=== PATIENT | male | born 1950 | race Caucasian/White ===

== ENCOUNTER 2022-01-28 16:27 | Observation (INO) ==
--- NOTE | 2022-01-28 16:39 | Emergency Department Note ---
Impression & Plan RML pneumonia, Confusion, S/P right hip fracture ED Provider Note Provider: Jer Richter MD DATE OF SERVICE: 01/28/2022 CHIEF COMPLAINT: Confusion, weakness HISTORY OF PRESENT ILLNESS: Patient is a 71-year-old gentleman presenting via ambulance reportedly from family members home today reported with weakness and fever and worsening confusion. Evidently had a right hip replacement at [facility] 2 weeks ago. Had a stroke sometimes in the past although was unclear exactly when. Patient reportedly was hospitalized at [facility] for a while. Upon arrival here he is unable to clearly tell me clearly why he is here. He does not know the year or the month but knows he is at the hospital. Denies any pain at this time. No trauma is reported. Patient is afebrile upon arrival and on room air. Patient denies significant chest pain, abdominal pain, or difficulty breathing. Patient presents with multiple medications including Xarelto is unclear why he is on this medicine. REVIEW OF SYSTEMS: A total of 10 review of systems was obtained and negative except as stated above in the HPI although the patient is a poor historian PAST MEDICAL HISTORY: As noted above MEDICATIONS: Reviewed medications presenting with the patient SOCIAL HISTORY: States his is PHYSICAL EXAM: GENERAL: alert on the stretcher in no distress. Not oriented to year or month but does know he is in the hospital. Does not remember why he was in [facility] recently. Head: normocephalic and atraumatic EYES: No injection, discharge or icterus. PERRL NECK: Trachea midline. Supple. ENT: Mucous membranes pink and moist. Pharynx LUNGS: Airway patent. No retractions. Breath sounds clear HEART: Regular bradycardic rate and rhythm. No chest wall tenderness ABDOMEN: Soft and non-tender, without guarding or rebound. Patient with healing right lateral posterior hip incision without significant erythema with dallas in place. SKIN: Acyanotic, warm, dry, without rashes EXTREMITIES: Without swelling, tenderness or deformity NEUROLOGICAL: Patient with some slight speech slur. Answers questions. Limited mobility of the right upper extremity and the right lower extremity with some contracture and wasting noted in these limbs. Neck strength and sensation of the left arm and leg. EK bpm sinus bradycardia with first-degree AV block. No acute ST segment elevation or depression. Left axis. QTC 444 CONTINUOUS CARDIAC MONITORING: was ordered and showed a heart rate of 40s-60s bpm in first-degree AV block bradycardia to sinus rhythm Patient's laboratory studies and imaging reviewed. Differential includes Infection, dehydration, metabolic abnormality, hypo/hyperglycemia, electrolyte disturbance, anemia, hypoxia, cardiac sources, intracerebral event, toxicologic, neurologic, as well as other pathologies. IMPRESSION/MEDICAL DECISION MAKING: Patient presents with EMS report of fever confusion and weakness after recent hip replacement. Presents with medications including Xarelto. Not hypoxic here or febrile. No significant leukocytosis although x-ray is concerning for development of a right middle lobe pneumonia. CT of the head completed of the patient is a prior stroke. No acute intracranial bleed noted. No emergency contact listed in the chart to get additional collateral history. Minimal anemia at 10.9. Given the recent hospitalization reported fever and the questionable findings of pneumonia treated broadly with a dose of Zosyn at this time and cultures were obtained. VBG without significant abnormality. Given some potassium for some mild hypokalemia. Procalcitonin is low. TSH within normal limits. No elevated ammonia. Patient again pleasant but mildly confused. Limited records here and in [facility]. Question if the patient does have some underlying dementia. Again unable to find family at this time. Given EMS report of some confusion will bring into the hospital although would potentially be an outpatient treatment candidate if family could be located and his exact baseline established. DIAGNOSIS: Right middle lobe pneumonia, confusion DISPOSITION: Hospitalist will evaluate Patient was agreeable with this plan. Past Med/Surg History Medical History (Updated 01/28/22 @ 20:05 by Jer Richter M.D.) Arthritis Asthma Emphysema lung H/O bronchitis History of urinary frequency Skin cancer Stroke Social History (System 02/12/19 @ 15:16 by Cynthia Bowers) Smoking Status: Former smoker Preferred Language: Malay Feels Safe at Home: Yes Allergies Allergies Allergy/AdvReac Type Severity Reaction Status Date / Time No Known Allergies Allergy Verified 02/22/20 14:04 Home Meds Previous Rx's Medication Instructions Recorded tamsulosin 0.4 mg capsule (Flomax) 0.4 mg PO QPM #30 cap 07/07/20 Results & Data (ED) Vital Signs Vital Signs - 24 hr 01/28/22 16:18 01/28/22 16:39 01/28/22 19:00 Temperature 36.8 C 37.1 C Temperature Source Oral Oral Pulse Rate 55 L Pulse Rate [Apical] 56 L 60 Pulse Rhythm [Apical] Regular Pulse Strength [Apical] Normal Respiratory Rate 16 18 Respiratory Effort / Characteristics Non-Labored Spontaneous Respiratory Depth Normal Blood Pressure 138/63 Blood Pressure [Left Arm] 138/63 129/81 Blood Pressure Mean 88 Blood Pressure Mean [Left Arm] 88 97 Blood Pressure Position [Left Arm] Lying Pulse Oximetry 95 94 97 Oxygen Delivery Method Room Air Room Air Sepsis Recent Fever Within 48 Hours No Sepsis New/Unexplained Change in Mental Status No Sepsis Action Taken by Nursing No Action Required Laboratory Data Result diagrams: 01/28/22 17:19 01/28/22 17:19 Lab Results 01/28/22 01/28/22 01/28/22 Range/Units 17:18 17:18 17:18 WBC (4.8-10.8) K/uL RBC (4.7-6.1) M/uL Hgb (14.0-18.0) g/dL Hct (42-52) % MCV (80-100) fL MCH (25-34) pg MCHC (32-36) g/dL RDW Std Deviation (36.4-46.3) fL RDW Coeff of Brittney (11.5-14.5) % Plt Count (130-400) K/uL MPV (7.4-10.4) fL Immature Gran % (Auto) % Neut % (Auto) % Lymph % (Auto) % Eaton % (Auto) % Eos % (Auto) % Baso % (Auto) % Neut # (Auto) (1.4-6.5) K/uL Lymph # (Auto) (1.2-3.4) K/uL Eaton # (Auto) (0.11-0.59) K/uL Eos # (Auto) (0-0.5) K/uL Baso # (Auto) (0-0.2) K/uL Immature Gran # (Auto) (0.00-0.02) K/uL PT 13.0 H (9.0-12.0) Seconds INR 1.2 H (0.9-1.1) VBG pH (7.36-7.41) VBG pCO2 (38-50) mmHg VBG pO2 mmHg VBG HCO3 mmol/L VBG O2 Saturation % VBG Base Excess mEq/L Barometric Pressure mm/Hg Sodium (136-145) mmol/L Potassium (3.5-5.1) mmol/L Chloride (98-107) mmol/L Carbon Dioxide (21-32) mmol/L Anion Gap (3-11) BUN (6-23) mg/dl Creatinine (0.6-1.4) mg/dl Est Cr Clr Drug Dosing ml/min Est GFR ( Amer) ml/min Est GFR (Non-Af Amer) ml/min BUN/Creatinine Ratio (10-20) Glucose (70-99(Fasting)) mg/dl Lactate (0.4-2.0) mmol/L Calcium (8.5-10.1) mg/dl Magnesium (1.7-2.4) mg/dl Total Bilirubin (0.2-1.0) mg/dl AST (13-39) U/L ALT (7-52) U/L Alkaline Phosphatase (34-104) U/L Ammonia (18-72) umol/L Total Creatine Kinase (30-223) U/L Troponin I High Sens 4.8 (0-20) pg/ml Total Protein (6.0-8.3) gm/dl Albumin (3.4-5.0) gm/dl Globulin (2.5-4.0) gm/dl Albumin/Globulin Ratio (0.9-2) Procalcitonin (0-0.5) ng/ml TSH 4.095 (0.300-4.500) uIu/ml SARS-CoV-2, RNA, NAAT (NEGATIVE) 01/28/22 01/28/22 01/28/22 Range/Units 17:18 17:19 17:19 WBC 8.36 (4.8-10.8) K/uL RBC 3.50 L (4.7-6.1) M/uL Hgb 10.9 L (14.0-18.0) g/dL Hct 32.1 L (42-52) % MCV 91.7 (80-100) fL MCH 31.1 (25-34) pg MCHC 34.0 (32-36) g/dL RDW Std Deviation 52.6 H (36.4-46.3) fL RDW Coeff of Brittney 16.2 H (11.5-14.5) % Plt Count 301 (130-400) K/uL MPV 10.2 (7.4-10.4) fL Immature Gran % (Auto) 0.2 % Neut % (Auto) 74.0 % Lymph % (Auto) 18.1 % Eaton % (Auto) 6.5 % Eos % (Auto) 1.1 % Baso % (Auto) 0.1 % Neut # (Auto) 6.19 (1.4-6.5) K/uL Lymph # (Auto) 1.51 (1.2-3.4) K/uL Eaton # (Auto) 0.54 (0.11-0.59) K/uL Eos # (Auto) 0.09 (0-0.5) K/uL Baso # (Auto) 0.01 (0-0.2) K/uL Immature Gran # (Auto) 0.02 (0.00-0.02) K/uL PT (9.0-12.0) Seconds INR (0.9-1.1) VBG pH (7.36-7.41) VBG pCO2 (38-50) mmHg VBG pO2 mmHg VBG HCO3 mmol/L VBG O2 Saturation % VBG Base Excess mEq/L Barometric Pressure mm/Hg Sodium 142 (136-145) mmol/L Potassium 3.0 L (3.5-5.1) mmol/L Chloride 108 H (98-107) mmol/L Carbon Dioxide 26 (21-32) mmol/L Anion Gap 8 (3-11) BUN 10 (6-23) mg/dl Creatinine 0.74 (0.6-1.4) mg/dl Est Cr Clr Drug Dosing 97.3 ml/min Est GFR ( Amer) 109.1 ml/min Est GFR (Non-Af Amer) 94.1 ml/min BUN/Creatinine Ratio 13.5 (10-20) Glucose 93 (70-99(Fasting)) mg/dl Lactate (0.4-2.0) mmol/L Calcium 8.5 (8.5-10.1) mg/dl Magnesium 1.9 (1.7-2.4) mg/dl Total Bilirubin 1.1 H (0.2-1.0) mg/dl AST 18 (13-39) U/L ALT 9 (7-52) U/L Alkaline Phosphatase 120 H (34-104) U/L Ammonia (18-72) umol/L Total Creatine Kinase 40 (30-223) U/L Troponin I High Sens (0-20) pg/ml Total Protein 6.2 (6.0-8.3) gm/dl Albumin 3.2 L (3.4-5.0) gm/dl Globulin 3.0 (2.5-4.0) gm/dl Albumin/Globulin Ratio 1.1 (0.9-2) Procalcitonin < 0.05 (0-0.5) ng/ml TSH (0.300-4.500) uIu/ml SARS-CoV-2, RNA, NAAT (NEGATIVE) 01/28/22 01/28/22 01/28/22 Range/Units 17:19 17:19 17:19 WBC (4.8-10.8) K/uL RBC (4.7-6.1) M/uL Hgb (14.0-18.0) g/dL Hct (42-52) % MCV (80-100) fL MCH (25-34) pg MCHC (32-36) g/dL RDW Std Deviation (36.4-46.3) fL RDW Coeff of Brittney (11.5-14.5) % Plt Count (130-400) K/uL MPV (7.4-10.4) fL Immature Gran % (Auto) % Neut % (Auto) % Lymph % (Auto) % Eaton % (Auto) % Eos % (Auto) % Baso % (Auto) % Neut # (Auto) (1.4-6.5) K/uL Lymph # (Auto) (1.2-3.4) K/uL Eaton # (Auto) (0.11-0.59) K/uL Eos # (Auto) (0-0.5) K/uL Baso # (Auto) (0-0.2) K/uL Immature Gran # (Auto) (0.00-0.02) K/uL PT (9.0-12.0) Seconds INR (0.9-1.1) VBG pH 7.41 (7.36-7.41) VBG pCO2 42 (38-50) mmHg VBG pO2 24 mmHg VBG HCO3 26 mmol/L VBG O2 Saturation < 60.0 % VBG Base Excess 1.4 mEq/L Barometric Pressure 738.2 mm/Hg Sodium (136-145) mmol/L Potassium (3.5-5.1) mmol/L Chloride (98-107) mmol/L Carbon Dioxide (21-32) mmol/L Anion Gap (3-11) BUN (6-23) mg/dl Creatinine (0.6-1.4) mg/dl Est Cr Clr Drug Dosing ml/min Est GFR ( Amer) ml/min Est GFR (Non-Af Amer) ml/min BUN/Creatinine Ratio (10-20) Glucose (70-99(Fasting)) mg/dl Lactate 0.9 (0.4-2.0) mmol/L Calcium (8.5-10.1) mg/dl Magnesium (1.7-2.4) mg/dl Total Bilirubin (0.2-1.0) mg/dl AST (13-39) U/L ALT (7-52) U/L Alkaline Phosphatase (34-104) U/L Ammonia 15.0 L (18-72) umol/L Total Creatine Kinase (30-223) U/L Troponin I High Sens (0-20) pg/ml Total Protein (6.0-8.3) gm/dl Albumin (3.4-5.0) gm/dl Globulin (2.5-4.0) gm/dl Albumin/Globulin Ratio (0.9-2) Procalcitonin (0-0.5) ng/ml TSH (0.300-4.500) uIu/ml SARS-CoV-2, RNA, NAAT (NEGATIVE) 01/28/22 Range/Units 17:21 WBC (4.8-10.8) K/uL RBC (4.7-6.1) M/uL Hgb (14.0-18.0) g/dL Hct (42-52) % MCV (80-100) fL MCH (25-34) pg MCHC (32-36) g/dL RDW Std Deviation (36.4-46.3) fL RDW Coeff of Brittney (11.5-14.5) % Plt Count (130-400) K/uL MPV (7.4-10.4) fL Immature Gran % (Auto) % Neut % (Auto) % Lymph % (Auto) % Eaton % (Auto) % Eos % (Auto) % Baso % (Auto) % Neut # (Auto) (1.4-6.5) K/uL Lymph # (Auto) (1.2-3.4) K/uL Eaton # (Auto) (0.11-0.59) K/uL Eos # (Auto) (0-0.5) K/uL Baso # (Auto) (0-0.2) K/uL Immature Gran # (Auto) (0.00-0.02) K/uL PT (9.0-12.0) Seconds INR (0.9-1.1) VBG pH (7.36-7.41) VBG pCO2 (38-50) mmHg VBG pO2 mmHg VBG HCO3 mmol/L VBG O2 Saturation % VBG Base Excess mEq/L Barometric Pressure mm/Hg Sodium (136-145) mmol/L Potassium (3.5-5.1) mmol/L Chloride (98-107) mmol/L Carbon Dioxide (21-32) mmol/L Anion Gap (3-11) BUN (6-23) mg/dl Creatinine (0.6-1.4) mg/dl Est Cr Clr Drug Dosing ml/min Est GFR ( Amer) ml/min Est GFR (Non-Af Amer) ml/min BUN/Creatinine Ratio (10-20) Glucose (70-99(Fasting)) mg/dl Lactate (0.4-2.0) mmol/L Calcium (8.5-10.1) mg/dl Magnesium (1.7-2.4) mg/dl Total Bilirubin (0.2-1.0) mg/dl AST (13-39) U/L ALT (7-52) U/L Alkaline Phosphatase (34-104) U/L Ammonia (18-72) umol/L Total Creatine Kinase (30-223) U/L Troponin I High Sens (0-20) pg/ml Total Protein (6.0-8.3) gm/dl Albumin (3.4-5.0) gm/dl Globulin (2.5-4.0) gm/dl Albumin/Globulin Ratio (0.9-2) Procalcitonin (0-0.5) ng/ml TSH (0.300-4.500) uIu/ml SARS-CoV-2, RNA, NAAT NEGATIVE (NEGATIVE) Administered Medications Discontinued Medications Sodium Chloride (Nss) 500 mls @ 999 mls/hr IV .Q31M ALESHA Stop: 01/28/22 17:15 Last Infusion: 01/28/22 20:23 Dose: 0 mls/hr Documented by: [id number] Admin: 01/28/22 17:20 Dose: 999 mls/hr Documented by: [id number] Piperacillin Sod/Tazobactam Sod (Zosyn) 4.5 gm in 120 mls @ 240 mls/hr IV NOW ONE Stop: 01/28/22 18:16 Last Infusion: 01/28/22 19:23 Dose: 0 mls/hr Documented by: [id number] Admin: 01/28/22 17:55 Dose: 240 mls/hr Documented by: [id number] Potassium Chloride (K Mazin / Wtr) 10 meq in 100 mls @ 100 mls/hr IV ONE ONE; Protocol Stop: 01/28/22 19:31 Last Infusion: 01/28/22 20:23 Dose: 0 mls/hr Documented by: [id number] Admin: 01/28/22 19:22 Dose: 100 mls/hr Documented by: [id number] Potassium Chloride (Potassium Chloride Crtab 20 Meq Tabcr) 20 meq PO NOW STA Stop: 01/28/22 18:33 Last Admin: 01/28/22 19:22 Dose: 20 meq Documented by: [id number] Imaging Data Radiologist's Impression: Chest X-Ray 01/28/22 16:39 XR chest 1V portable HISTORY: weakness COMPARISON: None. FINDINGS: No pneumothorax. No pleural effusions. The heart is normal in size. This mild diffuse interstitial thickening which is likely chronic. Cervical spinal fusion hardware is noted. There are patchy right medial lung base airspace opacities which overlies the right heart border. IMPRESSION: Patchy right medial lung base airspace opacities which favor a pneumonia and could be due to aspiration. Follow-up chest x-ray one to 2 month is recommended to ensure resolution. ACT 112: Negative or not required by law. Electronically signed by: Abram Griffin M.D. 01/28/2022 5:[address] 01/28/22 16:[address] DOSE: 614.27 mGy.cm HISTORY: weakness, confusion TECHNIQUE: Multiaxial CT images of the head were performed without the use of intravenous contrast. Automated exposure control was utilized for this study. A dose lowering technique was utilized adhering to the principles of ALARA. Comparison: None. Findings: The paranasal sinuses and mastoid air cells are clear. The calvarium and skull base are intact. There is no mass, hematoma, midline shift, acute infarct. White matter hypodensity is nonspecific but suggestive of microvascular ischemic change. The ventricles and sulci demonstrate mild age-related involutional changes. Old lacunar infarcts seen within the bilateral basal ganglia and left thalamus. Impression: No acute intracranial abnormality. Atrophy and microvascular ischemic changes. ACT 112: Negative or not required by law. Electronically signed by: Abram Griffin M.D. 01/28/2022 5:56 PM Hip/Pelvis X-Ray 01/28/22 16:39 XR hip RT 2V w pelvis CLINICAL HISTORY: weakness, recent internal fixation of the right hip COMPARISON STUDY: None. FINDINGS: The patient is status post recent internal fixation of a right femoral intertrochanteric fracture with an intramedullary magdalena and interlocking femoral neck pin. The hardware appears intact. The alignment is near-anatomic. Skin dallas are in place. No dislocation. Vascular calcifications are noted. No fractures identified within the pelvis or left hip. IMPRESSION: The patient is status post recent internal fixation of a right femoral intertrochanteric fracture with an intramedullary magdalena and interlocking femoral neck pin. The hardware appears intact. No additional fractures identified. ACT 112: Negative or not required by law. Electronically signed by: Abram Griffin M.D. 01/28/2022 5:13 PM Discharge Plan Visit Data Chief Complaint: Weakness ED Provider: Jer Richter Discharge Problem: RML pneumonia, Confusion, S/P right hip fracture Patient Disposition: Being Evaluated by Hospitalist Forms Stand Alone Forms: [place]pple Prescriptions Prescriptions: No Action tamsulosin [Flomax] 0.4 mg capsule 0.4 mg PO QPM Qty: 30 RF: 2 Referrals Referrals: PCP,NO [Primary Care Provider] - Discharge Problem: RML pneumonia Qualifiers: Pneumonia type: due to unspecified organism Qualified Code(s): J18.9 - Pneumonia, unspecified organism
[2022-01-28] MEDS ORDERED: SODIUM CHLORIDE 0.9% 500 ML IV SCH (16:45)
--- NOTE | 2022-01-28 17:13 | XRay Report ---
XR chest 1V portable HISTORY: weakness COMPARISON: None. FINDINGS: No pneumothorax. No pleural effusions. The heart is normal in size. This mild diffuse inter stitial thickening which is likely chronic. Cervical spinal fusion hardware is noted. There are patch y right medial lung base airspace opacities which overlies the right heart border. IMPRESSION: Patchy right medial lung base airspace opacities which favor a pneumonia and could be due to aspirati on. Follow-up chest x-ray one to 2 month is recommended to ensure resolution. ACT 112: Negative or not required by law. Electronically signed by: Abram Griffin M.D. 01/28/2022 5:11 PM
--- NOTE | 2022-01-28 17:14 | XRay Report ---
XR hip RT 2V w pelvis CLINICAL HISTORY: weakness, recent internal fixation of the right hip COMPARISON STUDY: None. FINDINGS: The patient is status post recent internal fixation of a right femoral intertrochanteric fr acture with an intramedullary magdalena and interlocking femoral neck pin. The hardware appears intact. The alignment is near-anatomic. Skin dallas are in place. No dislocation. Vascular calcifications are n oted. No fractures identified within the pelvis or left hip. IMPRESSION: The patient is status post recent internal fixation of a right femoral intertrochanteric fracture with an intramedullary magdalena and interlocking femoral neck pin. The hardware appears intact. No additional fractures identified. ACT 112: Negative or not required by law. Electronically signed by: Abram Griffin M.D. 01/28/2022 5:13 PM
[2022-01-28 17:39] LABS: Basophils # (auto) 0.01 K/uL (0-0.2); Basophils % (auto) 0.1 %; Eosinophils # (auto) 0.09 K/uL (0-0.5); Eosinophils % (auto) 1.1 %; Hematocrit (blood only) 32.1 % (42-52); Hemoglobin 10.9 g/dL (14.0-18.0); Immature Granulocytes # (auto) 0.02 K/uL (0.00-0.02); Immature Granulocytes % (auto) 0.2 %; Lymphocytes # (auto) 1.51 K/uL (1.2-3.4); Lymphocytes % (auto) 18.1 %; Mean Corpuscular Hemoglobin 31.1 pg (25-34); Mean Corpuscular Volume 91.7 fL (80-100); Mean Platelet Volume 10.2 fL (7.4-10.4); Monocytes # (auto) 0.54 K/uL (0.11-0.59); Monocytes % (auto) 6.5 %; Neutrophils # (auto) 6.19 K/uL (1.4-6.5); Platelet Count 301 K/uL (130-400); RDW Coefficient of Variation 16.2 % (11.5-14.5); RDW Standard Deviation 52.6 fL (36.4-46.3); White Blood Count 8.36 K/uL (4.8-10.8)
[2022-01-28 17:43] LABS: Base Excess VBG 1.4 mEq/L; HCO3 VBG 26 mmol/L; PCO2 VBG 42 mmHg (38-50); PO2 VBG 24 mmHg; pH VBG 7.41 (7.36-7.41)
[2022-01-28 17:46] LABS: INR 1.2 (0.9-1.1)
[2022-01-28] MEDS ORDERED: PIPERACILLIN/TAZOBACTAM 4.5 GM/120 ML BAG IV ONE (17:47)
[2022-01-28] MEDS ORDERED: PIPERACILL/TAZOBAC CONSULT ACTIVE PRN (17:47)
[2022-01-28 17:50] LABS: Oxygen Saturation VBG < 60.0 %
--- NOTE | 2022-01-28 17:59 | CT Scan Report ---
HEAD CT NONCONTRAST CT DOSE: 614.27 mGy.cm HISTORY: weakness, confusion TECHNIQUE: Multiaxial CT images of the head were performed without the use of intravenous contrast. A utomated exposure control was utilized for this study. A dose lowering technique was utilized adheri ng to the principles of ALARA. Comparison: None. Findings: The paranasal sinuses and mastoid air cells are clear. The calvarium and skull base are int act. There is no mass, hematoma, midline shift, acute infarct. White matter hypodensity is nonspecifi c but suggestive of microvascular ischemic change. The ventricles and sulci demonstrate mild age-rela brittani involutional changes. Old lacunar infarcts seen within the bilateral basal ganglia and left thala mus. Impression: No acute intracranial abnormality. Atrophy and microvascular ischemic changes. ACT 112: Negative or not required by law. Electronically signed by: Abram Griffin M.D. 01/28/2022 5:56 PM
[2022-01-28 18:23] LABS: Albumin Globulin Ratio 1.1 (0.9-2); Albumin Level 3.2 gm/dl (3.4-5.0); BUN Creatinine Ratio 13.5 (10-20); Bilirubin,Total 1.1 mg/dl (0.2-1.0); Calcium 8.5 mg/dl (8.5-10.1); Creatinine Clr Calc Pharmacy 97.3 ml/min; Est GFR (African American) 109.1 ml/min; Est GFR (Non-African American) 94.1 ml/min; Magnesium 1.9 mg/dl (1.7-2.4); Total Protein 6.2 gm/dl (6.0-8.3)
[2022-01-28] MEDS ORDERED: POTASSIUM CHLORIDE CRTAB 20 MEQ TABCR PO STA (18:32)
[2022-01-28] MEDS ORDERED: POTASSIUM CHLORIDE / WTR 10 MEQ/100 ML PLCT IV ONE (18:32)
--- NOTE | 2022-01-28 20:29 | History & Physical Report ---
Date of Service January 28, 2022 Assessment & Plan (1) S/P right hip fracture: Plan: Patient is s/p right hip fracture with repair 12 days ago at [facility]. Details unavailable. Wound with dallas in place - does not appear to be infected. Presently afebrile, HD stable, no leukocytosis, negative procalcitonin. Uncertain why patient is on Xarelto - patient said he has had a blood clot before but is unable to say if it was in his leg or lung? Possibly for DVT prophylaxis following hip surgery. -Pain control with Tylenol -Continue Xarelto -Will request records from [place] -Continue to try to reach family/friends for additional history -PT/OT evaluation appreciated -?Case management for placement needs (2) Confusion: Plan: Patient with underlying dementia - has poor memory, unable to recollect details of events prior to arrival or details of his recent surgery. He is oriented x 3, does not appear confused or delirious at this time. Is at risk for delirium. Workup with essentially normal electrolytes (K being repleted), normal renal function. CT Head with no acute changes. No hypoxia. -Delirium prevention strategies. (3) Hypertension: Plan: Blood pressure presently well controlled, 129/81 -Continue Lisinopril (4) Dementia: Plan: Frequent orientation. Avoidance of delirium inducing agents (5) BPH w urinary obs/LUTS: Plan: Patient reports no difficulty with urination. -Continue Flomax 0.4mg daily -UA ordered from ER - will follow -Bladder scan/straight cath as needed (6) Emphysema lung: Plan: Adequate oxygenation. No wheezing -Albuterol as needed -Supplemental O2 as needed - goal saturation 92% (7) Pulmonary infiltrate: Plan: Patient with infiltrates noted on CXR. He reports dry cough. No leukocytosis, negative Procalcitonin. Do not strongly suspect PNA. ?aspiration - nursing noted cough after PO medications. Patient with history of CVA, at risk for aspiration. -Dysphagia screening -Speech/Swallow evaluation -Aspiration precautions -Continue to monitor for signs/symptoms of PNA. Will hold off on additional antibiotics at this time. Patient received Zosyn x 4.5 gm in ER Plan: F/E/N - Heplock. 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 Patient is a limited historian and is unable to provide details of events prior to arrival. He states he does not know why he is in the hospital right now. He reports a cough as well as some generalized weakness, but otherwise feels well. Per review of ER, EMS and Triage notes - patient recently had ORIF right femur performed at [facility] 12 days ago. He has been recovering at home (possibly lives alone - unable to elucidate clear details of patient's current living arrangement) and has been doing ok. EMS was called today by ?family or friends? due to generalized weakness, confusion and fever x 2 days. He has been receiving Tylenol - last dose this AM. Family is requesting that patient be sent to the ER then be placed in rehab. When EMS arrived at the scene the patient was laying supine, alert, GCS 15, he was accompanied by two individuals and several animals at the time. He was afebrile 98.8, HR of 60, BP of 114/58, RR of 16 saturating 97% on room air. In the ER he has been afebrile, HD stable, NAD. Nursing noted some cough after administering PO K with water, concern for aspiration. Patient states he has had a dry cough and generalized weakness. Otherwise he denies fever, chills, chest pain, palpitations, abdominal pain, nausea, vomiting, diarrhea or constipation. He denies dysuria, hematuria, numbness/tingling or focal weakness different from baseline. Reports he is eating and drinking well at home. Has residual right sided paresis with flexion contractures from prior CVA. By EMS - patient is unable to ambulate on his own. Difficulty with transfers. Patient states he has one son that lives in [place]. He does not recall his phone number. Does not own a cellular phone. Home number [phone] tried several times with no answer. ER Course: Zosyn, KCl 30mEq, NSS Allergies Allergy/AdvReac Type Severity Reaction Status Date / Time No Known Allergies Allergy Verified 01/28/22 20:59 Home Medications Medication Instructions Recorded Confirmed Type tamsulosin 0.4 mg capsule (Flomax) 0.4 mg PO QPM #30 cap 07/07/20 Rx Past Med/Surg History Medical History (Updated 01/28/22 @ 21:55 by Ashley Bledsoe DO) Arthritis Asthma Dementia Emphysema lung Hypertension Skin cancer Stroke 2009 with residual right sided weakness Surgical History History of fusion of cervical spine History of open reduction and internal fixation (ORIF) procedure right femur Family History Other No significant family history Social History (Updated 01/28/22 @ 21:43 by Ashley Bledsoe DO) Smoking Status: Former smoker Hx Alcohol Use: Yes Alcohol type: beer Alcohol Intake Frequency: 4 or More x per/Week Hx Substance Use: No Preferred Language: [place]ib[place] Feels Safe at Home: Yes Review of Systems Review of Systems: All systems reviewed & are unremarkable except as noted in HPI & below Physical Exam Physical Exam: General: patient resting comfortably, NAD, non-toxic in appearance, speech is slow and slightly garbled, oriented to self/location and year, uncertain of why he is in the hospital Skin: warm, dry, no rashes/lesions. s/p right femur ORIF with dallas x [address], no bleeding/drainage/erythema or dehiscence HEENT: NC/AT, PERRL, EOMI, anicteric sclera, conjunctiva without injection, external ear normal to inspection and nontender, nares patent, moist mucus membranes, dentition intact, no oropharyngeal lesions, neck supple, trachea midline, no LAD, no thyromegaly, no JVD Heart: +S1/S2, regular, no m/r/g Lungs: equal air entry bilaterally, +crackles in mid-lung mcduffie, R > L Abd: +BS, soft, NT/ND, no masses/organomegaly/ascites Ext: warm, 2+ pulses in UE/LE bilaterally, no clubbing/cyanosis or edema Neuro: AA&O x 3, speech is slow and garbled, flexion contracture of RUE/RLE with strength 2/5, strength 4+/5 in LUE/LLE, sensation intact Results & Data Results & Data ([facility]) Vital Signs (Past 12 Hours) Vital Signs Temp Pulse Pulse Resp BP BP Pulse Ox 01/28/22 19:00 37.1 C 60 18 129/81 97 01/28/22 16:39 94 01/28/22 16:18 36.8 C 55 L 56 L 16 138/63 138/63 95 Laboratory Results Laboratory Results WBC 8.36 K/uL (4.8-10.8) 01/28/22 17:19 RBC 3.50 M/uL (4.7-6.1) L 01/28/22 17:19 Hgb 10.9 g/dL (14.0-18.0) L 01/28/22 17:19 Hct 32.1 % (42-52) L 01/28/22 17:19 MCV 91.7 fL (80-100) 01/28/22 17:19 MCH 31.1 pg (25-34) 01/28/22 17:19 MCHC 34.0 g/dL (32-36) 01/28/22 17:19 RDW Std Deviation 52.6 fL (36.4-46.3) H 01/28/22 17:19 RDW Coeff of Brittney 16.2 % (11.5-14.5) H 01/28/22 17:19 Plt Count 301 K/uL (130-400) 01/28/22 17:19 MPV 10.2 fL (7.4-10.4) 01/28/22 17:19 Immature Gran % (Auto) 0.2 % 01/28/22 17:19 Neut % (Auto) 74.0 % 01/28/22 17:19 Lymph % (Auto) 18.1 % 01/28/22 17:19 Briscoe % (Auto) 6.5 % 01/28/22 17:19 Eos % (Auto) 1.1 % 01/28/22 17:19 Baso % (Auto) 0.1 % 01/28/22 17:19 Neut # (Auto) 6.19 K/uL (1.4-6.5) 01/28/22 17:19 Lymph # (Auto) 1.51 K/uL (1.2-3.4) 01/28/22 17:19 Briscoe # (Auto) 0.54 K/uL (0.11-0.59) 01/28/22 17:19 Eos # (Auto) 0.09 K/uL (0-0.5) 01/28/22 17:19 Baso # (Auto) 0.01 K/uL (0-0.2) 01/28/22 17:19 Immature Gran # (Auto) 0.02 K/uL (0.00-0.02) 01/28/22 17:19 PT 13.0 Seconds (9.0-12.0) H 01/28/22 17:18 INR 1.2 (0.9-1.1) H 01/28/22 17:18 VBG pH 7.41 (7.36-7.41) 01/28/22 17:19 VBG pCO2 42 mmHg (38-50) 01/28/22 17:19 VBG pO2 24 mmHg 01/28/22 17:19 VBG HCO3 26 mmol/L 01/28/22 17:19 VBG O2 Saturation < 60.0 % 01/28/22 17:19 VBG Base Excess 1.4 mEq/L 01/28/22 17:19 Barometric Pressure 738.2 mm/Hg 01/28/22 17:19 Sodium 142 mmol/L (136-145) 01/28/22 17:19 Potassium 3.0 mmol/L (3.5-5.1) L 01/28/22 17:19 Chloride 108 mmol/L (98-107) H 01/28/22 17:19 Carbon Dioxide 26 mmol/L (21-32) 01/28/22 17:19 Anion Gap 8 (3-11) 01/28/22 17:19 BUN 10 mg/dl (6-23) 01/28/22 17:19 Creatinine 0.74 mg/dl (0.6-1.4) 01/28/22 17:19 Est Cr Clr Drug Dosing 97.3 ml/min 01/28/22 17:19 Est GFR ( Amer) 109.1 ml/min 01/28/22 17:19 Est GFR (Non-Af Amer) 94.1 ml/min 01/28/22 17:19 BUN/Creatinine Ratio 13.5 (10-20) 01/28/22 17:19 Glucose 93 mg/dl (70-99(Fasting)) 01/28/22 17:19 Lactate 0.9 mmol/L (0.4-2.0) 01/28/22 17:19 Calcium 8.5 mg/dl (8.5-10.1) 01/28/22 17:19 Magnesium 1.9 mg/dl (1.7-2.4) 01/28/22 17:19 Total Bilirubin 1.1 mg/dl (0.2-1.0) H 01/28/22 17:19 AST 18 U/L (13-39) 01/28/22 17:19 ALT 9 U/L (7-52) 01/28/22 17:19 Alkaline Phosphatase 120 U/L (34-104) H 01/28/22 17:19 Ammonia 15.0 umol/L (18-72) L 01/28/22 17:19 Total Creatine Kinase 40 U/L (30-223) 01/28/22 17:19 Troponin I High Sens 4.8 pg/ml (0-20) 01/28/22 17:18 Total Protein 6.2 gm/dl (6.0-8.3) 01/28/22 17:19 Albumin 3.2 gm/dl (3.4-5.0) L 01/28/22 17:19 Globulin 3.0 gm/dl (2.5-4.0) 01/28/22 17:19 Albumin/Globulin Ratio 1.1 (0.9-2) 01/28/22 17:19 Procalcitonin < 0.05 ng/ml (0-0.5) 01/28/22 17:18 TSH 4.095 uIu/ml (0.300-4.500) 01/28/22 17:18 SARS-CoV-2, RNA, NAAT NEGATIVE (NEGATIVE) 01/28/22 17:21 Impressions Chest X-Ray 01/28/22 16:39 XR chest 1V portable HISTORY: weakness COMPARISON: None. FINDINGS: No pneumothorax. No pleural effusions. The heart is normal in size. This mild diffuse interstitial thickening which is likely chronic. Cervical spinal fusion hardware is noted. There are patchy right medial lung base airspace opacities which overlies the right heart border. IMPRESSION: Patchy right medial lung base airspace opacities which favor a pneumonia and could be due to aspiration. Follow-up chest x-ray one to 2 month is recommended to ensure resolution. ACT 112: Negative or not required by law. Electronically signed by: Abram Griffin M.D. 01/28/2022 5:[address] 01/28/22 16:[address] DOSE: 614.27 mGy.cm HISTORY: weakness, confusion TECHNIQUE: Multiaxial CT images of the head were performed without the use of intravenous contrast. Automated exposure control was utilized for this study. A dose lowering technique was utilized adhering to the principles of ALARA. Comparison: None. Findings: The paranasal sinuses and mastoid air cells are clear. The calvarium and skull base are intact. There is no mass, hematoma, midline shift, acute infarct. White matter hypodensity is nonspecific but suggestive of microvascular ischemic change. The ventricles and sulci demonstrate mild age-related involutional changes. Old lacunar infarcts seen within the bilateral basal ganglia and left thalamus. Impression: No acute intracranial abnormality. Atrophy and microvascular ischemic changes. ACT 112: Negative or not required by law. Electronically signed by: Abram Griffin M.D. 01/28/2022 5:56 PM Hip/Pelvis X-Ray 01/28/22 16:39 XR hip RT 2V w pelvis CLINICAL HISTORY: weakness, recent internal fixation of the right hip COMPARISON STUDY: None. FINDINGS: The patient is status post recent internal fixation of a right femoral intertrochanteric fracture with an intramedullary magdalena and interlocking femoral neck pin. The hardware appears intact. The alignment is near-anatomic. Skin dallas are in place. No dislocation. Vascular calcifications are noted. No fractures identified within the pelvis or left hip. IMPRESSION: The patient is status post recent internal fixation of a right femoral intertrochanteric fracture with an intramedullary magdalena and interlocking femoral neck pin. The hardware appears intact. No additional fractures identified. ACT 112: Negative or not required by law. Electronically signed by: Abram Griffin M.D. 01/28/2022 5:13 PM Code Status & VTE Plan VTE Prophylaxis Plan VTE Prophylaxis will be ordered: Yes PG Care Time/CCT Total # of Minutes Spent Total Time Spent with Patient: Total time spent is greater than 50% in coordination of care (as documented) at patient's floor/unit and/or counseling patient: Coding Level of Care Code INT OBSERVATION CARE 70M LVL 3 Diagnoses Hypertension I10 Dementia F03.90 Confusion R41.0 S/P right hip fracture Z87.81 BPH w urinary obs/LUTS N40.1; N13.8 Emphysema lung J43.9 Pulmonary infiltrate R91.8
[2022-01-28] MEDS ORDERED: DOCUSATE SODIUM 100 MG CAP PO PRN (23:02)
[2022-01-28] MEDS ORDERED: POTASSIUM CHLORIDE 20 MEQ/15 ML UDC PO ONE (23:15)
[2022-01-29 09:35] LABS: Hemoglobin 10.2 g/dL (14.0-18.0); Mean Corpuscular Hemoglobin 30.4 pg (25-34); Mean Corpuscular Hgb Conc 32.9 g/dL (32-36); Mean Corpuscular Volume 92.3 fL (80-100); Platelet Count 317 K/uL (130-400); Red Blood Count 3.36 M/uL (4.7-6.1); White Blood Count 10.84 K/uL (4.8-10.8)
[2022-01-29 09:36] LABS: BUN Creatinine Ratio 13.8 (10-20); Basophils # (auto) 0.03 K/uL (0-0.2); Basophils % (auto) 0.3 %; Bilirubin Direct 0.2 mg/dl (0-0.2); Calcium 8.5 mg/dl (8.5-10.1); Creatinine Clr Calc Pharmacy 101.6 ml/min; Eosinophils # (auto) 0.08 K/uL (0-0.5); Eosinophils % (auto) 0.7 %; Est GFR (African American) 115.1 ml/min; Est GFR (Non-African American) 99.3 ml/min; Immature Granulocytes # (auto) 0.03 K/uL (0.00-0.02); Immature Granulocytes % (auto) 0.3 %; Lymphocytes # (auto) 1.16 K/uL (1.2-3.4); Lymphocytes % (auto) 10.7 %; Monocytes # (auto) 0.59 K/uL (0.11-0.59); Monocytes % (auto) 5.4 %; Neutrophils # (auto) 8.95 K/uL (1.4-6.5); Neutrophils % (auto) 82.6 %; Potassium 3.7 mmol/L (3.5-5.1); Total Protein 5.6 gm/dl (6.0-8.3)
--- NOTE | 2022-01-29 12:10 | Electrocardiogram Report ---
Test Reason : Blood Pressure : / mmHG Vent. Rate : 048 BPM Atrial Rate : 048 BPM P-R Int : 214 ms QRS Dur : 090 ms QT Int : 498 ms P-R-T Axes : 076 -39 051 degrees QTc Int : 444 ms Sinus bradycardia with 1st degree A-V block Left axis deviation Abnormal ECG No previous ECGs available Confirmed by Shaun Montemayor ([id number]) on 01/29/2022 12:09:52 PM Referred By: REFERRED SELF Confirmed By:Vincent Montemayor
[2022-01-29] MEDS ORDERED: ENOXAPARIN INJ 40 MG/0.4 ML SYR SQ SCH (12:15)
[2022-01-29] MEDS ORDERED: PIPERACILL/TAZOBAC CONSULT ACTIVE PRN (12:17)
--- NOTE | 2022-01-29 12:18 | Hospitalist Progress Note ---
Date of Service January 29, 2022 Assessment & Plan (1) S/P right hip fracture: Plan: Patient is s/p right hip fracture with repair 12 days ago at [facility]. Details unavailable. Wound with dallas in place - does not appear to be infected. Presently afebrile, HD stable, no leukocytosis, negative procalcitonin. Uncertain why patient is on Xarelto - patient said he has had a blood clot before but is unable to say if it was in his leg or lung? Possibly for DVT prophylaxis following hip surgery. Per son, Stuart, placed on Xarelto for DVT prevention following hip surgery, and he did give dad dose last evening prior to having EMS called He has been living with son since discharge, history of dementia, per son related to alcohol (confirmed and asked patient about drinking and he did endorse this despite confusion, and B12/folate on EMS medications list). Per son, patient has been pretty much bed bound, and unable to take care of/transfers as of lately. Wondered if possible UTI as well given he has gotten like this in the past. Ordered Xarelto as not ordered on admission PT/OT consulted CM following To have sutures removed in next 3 days, can remove on Tuesday Pain control with tylenol as needed. Supportive care for now See below regarding confusion (2) Confusion: Plan: Patient with underlying dementia - has poor memory, unable to recollect details of events prior to arrival or details of his recent surgery. Per son, issues with confusion in afternoon/evening, especially around 3;30pm. Takes ativan 1mg in am as needed, 1/2 tablet in afternoon. this maxwell been ord ered in case of confusion CT head negative Not hypoxic Patient confused today, but pleasant. Unaware passed 2 months ago and has been living with son since discharge. Hx dementia per son, but worsened recently Hx aspiration pneumonia and choked on supplemental potassium given on admission Speech eval -- swallow study. aspiration with 50% of thins. Dietary modification in place Lungs sound junky (although typically on 3L O2 at home chronically, and has been stable on room air, hx COPD) --> CXR with RML opacities, and given prior episode aspiration pneumonia in 2016, given dose of Zosyn as was recently in [place], but continues on Unasyn for aspiration pneumonia and WBC elevated to 10.8k on AM labs Procal negative UA pending given confusion -- had to place erickson due to incontinence. Negative for evidence for infection. RBCs likely due to insertion but did not urobilinogin Ammonia low Ordered B12/folate replacement and check labs for completeness Will also check B1 to am labs --> ordered thiamine IV replacement given hx alcohol use/abuse and son dose endorse giving father 1-2 beers at night several nights a week at home BCs pending RUQ US obtained given confusion and elevated ALP on labs, although recent ORIF as above --> RUQ with GB filled with gallstones, no convincing evidence for acute cholecystitis. No biliary ductal dilatation. Coarsening of hepatic echotexture and nodularity of the liver surface suggestive of cirrhosis (likely from history of alcohol use/abuse). Small R pleural effusion ALP improved. No abdominal pain reported on examination but will need to monitor closely. --> IF development of abdominal pain/n/v or worsening LFTs would obtain further imaging/consultation with specialist Frequent orientation Continue to monitor (3) Cirrhosis: Plan: noted on RUQ US, obtained given confusion and TB 1.1 with elevated ALP on admission, likely 2nd to long standing alcohol use (although recent ALP could be from bone given recent fx) recommend cessation moving forward ammonia not elevated ALP up, but decreased from admission. RUQ with stones but no RUQ pain on exam noted but will need close monitoring LFts in AM, consultation with GI as well given cirrhosis (4) Pulmonary infiltrate: Plan: Patient with infiltrates noted on CXR. He reports dry cough. No leukocytosis, negative Procalcitonin. Do not strongly suspect PNA. ?aspiration - nursing noted cough after PO medications. Patient with history of CVA, at risk for aspiration. -Dysphagia screening -Speech/Swallow evaluation -Aspiration precautions Got ZOsyn in ER 4.5mg, additional dose today and discussed with pharmacy low risk HAP (despite recent in hospital for ORIF as above) and de-escalated to Unasyn for now Blood cultures pending Sputum cx if able to produce COntinue incentive spirometer Monitor (5) Hypertension: Plan: Blood pressure presently well controlled, 129/81 On lisinopril at home, but holding for now while assessing PO intake Monitor (6) Dementia: Plan: Frequent orientation. Avoidance of delirium inducing agents but did add ativan as needed instead of scheduled as takes at home and would want to prevent withdrawal B12/TSH/B1 checking as above (7) BPH w urinary obs/LUTS: Plan: Patient reports no difficulty with urination. -Continue Flomax 0.4mg daily Erickson placed, UA without evidence for infection. Monitor/voiding trial prior to discharge. Had been having issues with incontinence (8) Emphysema lung: Plan: Adequate oxygenation. No wheezing. Albuterol as needed, ordered Supplemental O2 as needed - goal saturation 92% and has remained stable on room air at this time Monitor (9) : Plan: reported by son and usually well manageable with his baseline ativan, which has only been ordered prn given confusion to prevent worsening confusion (10) Hypokalemia: Plan: K 3.0 on admission, replacement ordered. suspect 2nd to poor PO intake [employer] K wnl on repeat at 3.7 and monitor for stability. Mag 1.9 (11) CVA (cerebral vascular accident): Plan: Hx of CVA with R sided weakness per PCP note with episode of expressive aphasia April 2010 Also notes a history of polycythemia and regular phlebotomies? Plan: continued inpatient stay PT/OT consulted, son unable to take home/care for him in current state. likely to at least need rehab, if not custodial placement Admission and Anticipated Discharge Date Admission Date: January 28, 2022 Subjective Patient evaluated this afternoon. Confused. States year is 2043. Month is November. Knows he had hip surgery and states he went home with . Denies her passing away recently. Discussed Xarelto -- denied taking this at home. When asked about home medications, he states Advil but unsure of anything else. Per son, around 330 in afternoon gets worse. Takes Ativan 1 in morning and 1/2 tablet at night. Stitches to come out 02/01. Lot of memory issues, related to alcohol. He does let his dad had ~1-2 beers at max daily but tried to hold off. Did endorse he got Xarelto last night before EMS took, will order for today. Review of EMS report, patient home medications to include: sertraline 100mg QAM, 50mg QPM, ferrous sulfate, acetaminophen, folic acid, B12, lisinopril 2.5mg, lorazepam 1mg BID, Xarelto, pantoprazole. Per PCP note, hx aspiration pneumonia x 2 in 2015. Also notes on chronic oxygen at baseline, 3.5L. Currently 93% on RA. Per EMS sheet, caregivers noted 6 stitches that have not been not been red, not removed since surgery. CM spoke with son Laurent, as patient believes was home with ( 2 months ago) and has been living with Laurent, mainly bedbound. Has been more confused and struggling lately with transfers and wanted his dad to go to [facility] for re[facility]. CM following and other referrals sent. Review of Systems Review of Systems: All systems reviewed & are unremarkable except as noted in HPI & below Physical Exam Physical Exam: General: WN/WD male sitting in bed, covered up, no acute distress HEENT: poor dentition, slightly dry mm, trachea midline, no deviation Resp: on room air, RML/RLL crackles/rales, end expiratory wheezing, able to talk in complete sentences, +cough CV: RRR, no murmur, rub, gallop, cap refill wnl GI: +BS, soft, non-tender, no guarding/rigidity : no erickson Psych: alert to person, not place/time/event, cooperative Neuro/MSK: speech slow at times, garbled, flexion contracture RUE/RLE with strength 2/5. LLE with stitches in place, surrounding ecchymosis, slightly tender to palpation, externally rotated. slight edema L calf compared to right, slightly warm, non-tender to palpation. Results & Data Results & Data ([facility]) Vital Signs (Past 12 Hours) Vital Signs Temp Pulse Resp BP Pulse Ox 01/29/22 09:02 36.9 C 64 16 129/58 L 93 Laboratory Results 01/29/22 01/29/22 01/29/22 Range/Units 12:24 12:24 08:52 WBC (4.8-10.8) K/uL RBC (4.7-6.1) M/uL Hgb (14.0-18.0) g/dL Hct (42-52) % MCV (80-100) fL MCH (25-34) pg MCHC (32-36) g/dL RDW Std Deviation (36.4-46.3) fL RDW Coeff of Brittney (11.5-14.5) % Plt Count (130-400) K/uL MPV (7.4-10.4) fL Immature Gran % (Auto) % Neut % (Auto) % Lymph % (Auto) % [place] % (Auto) % Eos % (Auto) % Baso % (Auto) % Neut # (Auto) (1.4-6.5) K/uL Lymph # (Auto) (1.2-3.4) K/uL [place] # (Auto) (0.11-0.59) K/uL Eos # (Auto) (0-0.5) K/uL Baso # (Auto) (0-0.2) K/uL Immature Gran # (Auto) (0.00-0.02) K/uL PT (9.0-12.0) Seconds INR (0.9-1.1) VBG pH (7.36-7.41) VBG pCO2 (38-50) mmHg VBG pO2 mmHg VBG HCO3 mmol/L VBG O2 Saturation % VBG Base Excess mEq/L Barometric Pressure mm/Hg Sodium 141 (136-145) mmol/L Potassium 3.7 D (3.5-5.1) mmol/L Chloride 112 H (98-107) mmol/L Carbon Dioxide 25 (21-32) mmol/L Anion Gap 4 (3-11) BUN 9 (6-23) mg/dl Creatinine 0.65 (0.6-1.4) mg/dl Est Cr Clr Drug Dosing 101.6 ml/min Est GFR ( Amer) 115.1 ml/min Est GFR (Non-Af Amer) 99.3 ml/min BUN/Creatinine Ratio 13.8 (10-20) Glucose 101 H (70-99(Fasting)) mg/dl Lactate (0.4-2.0) mmol/L Calcium 8.5 (8.5-10.1) mg/dl Phosphorus (2.5-4.9) mg/dl Magnesium (1.7-2.4) mg/dl Total Bilirubin 1.0 (0.2-1.0) mg/dl Direct Bilirubin 0.2 (0-0.2) mg/dl AST 14 (13-39) U/L ALT 8 (7-52) U/L Alkaline Phosphatase 116 H (34-104) U/L Ammonia (18-72) umol/L Total Creatine Kinase (30-223) U/L Troponin I High Sens (0-20) pg/ml Total Protein 5.6 L (6.0-8.3) gm/dl Albumin 3.0 L (3.4-5.0) gm/dl Globulin (2.5-4.0) gm/dl Albumin/Globulin Ratio (0.9-2) Vitamin B1 Pending Vitamin B12 Pending Procalcitonin (0-0.5) ng/ml TSH (0.300-4.500) uIu/ml SARS-CoV-2, RNA, NAAT (NEGATIVE) 01/29/22 01/28/22 01/28/22 Range/Units 08:52 17:21 17:19 WBC 10.84 H (4.8-10.8) K/uL RBC 3.36 L (4.7-6.1) M/uL Hgb 10.2 L (14.0-18.0) g/dL Hct 31.0 L (42-52) % MCV 92.3 (80-100) fL MCH 30.4 (25-34) pg MCHC 32.9 (32-36) g/dL RDW Std Deviation (36.4-46.3) fL RDW Coeff of Brittney (11.5-14.5) % Plt Count 317 (130-400) K/uL MPV (7.4-10.4) fL Immature Gran % (Auto) 0.3 % Neut % (Auto) 82.6 % Lymph % (Auto) 10.7 % [place] % (Auto) 5.4 % Eos % (Auto) 0.7 % Baso % (Auto) 0.3 % Neut # (Auto) 8.95 H (1.4-6.5) K/uL Lymph # (Auto) 1.16 L (1.2-3.4) K/uL [place] # (Auto) 0.59 (0.11-0.59) K/uL Eos # (Auto) 0.08 (0-0.5) K/uL Baso # (Auto) 0.03 (0-0.2) K/uL Immature Gran # (Auto) 0.03 H (0.00-0.02) K/uL PT (9.0-12.0) Seconds INR (0.9-1.1) VBG pH (7.36-7.41) VBG pCO2 (38-50) mmHg VBG pO2 mmHg VBG HCO3 mmol/L VBG O2 Saturation % VBG Base Excess mEq/L Barometric Pressure mm/Hg Sodium (136-145) mmol/L Potassium (3.5-5.1) mmol/L Chloride (98-107) mmol/L Carbon Dioxide (21-32) mmol/L Anion Gap (3-11) BUN (6-23) mg/dl Creatinine (0.6-1.4) mg/dl Est Cr Clr Drug Dosing ml/min Est GFR ( Amer) ml/min Est GFR (Non-Af Amer) ml/min BUN/Creatinine Ratio (10-20) Glucose (70-99(Fasting)) mg/dl Lactate (0.4-2.0) mmol/L Calcium (8.5-10.1) mg/dl Phosphorus 3.9 (2.5-4.9) mg/dl Magnesium (1.7-2.4) mg/dl Total Bilirubin (0.2-1.0) mg/dl Direct Bilirubin (0-0.2) mg/dl AST (13-39) U/L ALT (7-52) U/L Alkaline Phosphatase (34-104) U/L Ammonia (18-72) umol/L Total Creatine Kinase (30-223) U/L Troponin I High Sens (0-20) pg/ml Total Protein (6.0-8.3) gm/dl Albumin (3.4-5.0) gm/dl Globulin (2.5-4.0) gm/dl Albumin/Globulin Ratio (0.9-2) Vitamin B1 Vitamin B12 Procalcitonin (0-0.5) ng/ml TSH (0.300-4.500) uIu/ml SARS-CoV-2, RNA, NAAT NEGATIVE (NEGATIVE) 01/28/22 01/28/22 01/28/22 Range/Units 17:19 17:19 17:19 WBC (4.8-10.8) K/uL RBC (4.7-6.1) M/uL Hgb (14.0-18.0) g/dL Hct (42-52) % MCV (80-100) fL MCH (25-34) pg MCHC (32-36) g/dL RDW Std Deviation (36.4-46.3) fL RDW Coeff of Brittney (11.5-14.5) % Plt Count (130-400) K/uL MPV (7.4-10.4) fL Immature Gran % (Auto) % Neut % (Auto) % Lymph % (Auto) % [place] % (Auto) % Eos % (Auto) % Baso % (Auto) % Neut # (Auto) (1.4-6.5) K/uL Lymph # (Auto) (1.2-3.4) K/uL [place] # (Auto) (0.11-0.59) K/uL Eos # (Auto) (0-0.5) K/uL Baso # (Auto) (0-0.2) K/uL Immature Gran # (Auto) (0.00-0.02) K/uL PT (9.0-12.0) Seconds INR (0.9-1.1) VBG pH 7.41 (7.36-7.41) VBG pCO2 42 (38-50) mmHg VBG pO2 24 mmHg VBG HCO3 26 mmol/L VBG O2 Saturation < 60.0 % VBG Base Excess 1.4 mEq/L Barometric Pressure 738.2 mm/Hg Sodium (136-145) mmol/L Potassium (3.5-5.1) mmol/L Chloride (98-107) mmol/L Carbon Dioxide (21-32) mmol/L Anion Gap (3-11) BUN (6-23) mg/dl Creatinine (0.6-1.4) mg/dl Est Cr Clr Drug Dosing ml/min Est GFR ( Amer) ml/min Est GFR (Non-Af Amer) ml/min BUN/Creatinine Ratio (10-20) Glucose (70-99(Fasting)) mg/dl Lactate 0.9 (0.4-2.0) mmol/L Calcium (8.5-10.1) mg/dl Phosphorus (2.5-4.9) mg/dl Magnesium (1.7-2.4) mg/dl Total Bilirubin (0.2-1.0) mg/dl Direct Bilirubin (0-0.2) mg/dl AST (13-39) U/L ALT (7-52) U/L Alkaline Phosphatase (34-104) U/L Ammonia 15.0 L (18-72) umol/L Total Creatine Kinase (30-223) U/L Troponin I High Sens (0-20) pg/ml Total Protein (6.0-8.3) gm/dl Albumin (3.4-5.0) gm/dl Globulin (2.5-4.0) gm/dl Albumin/Globulin Ratio (0.9-2) Vitamin B1 Vitamin B12 Procalcitonin (0-0.5) ng/ml TSH (0.300-4.500) uIu/ml SARS-CoV-2, RNA, NAAT (NEGATIVE) 01/28/22 01/28/22 01/28/22 Range/Units 17:19 17:19 17:18 WBC 8.36 (4.8-10.8) K/uL RBC 3.50 L (4.7-6.1) M/uL Hgb 10.9 L (14.0-18.0) g/dL Hct 32.1 L (42-52) % MCV 91.7 (80-100) fL MCH 31.1 (25-34) pg MCHC 34.0 (32-36) g/dL RDW Std Deviation 52.6 H (36.4-46.3) fL RDW Coeff of Brittney 16.2 H (11.5-14.5) % Plt Count 301 (130-400) K/uL MPV 10.2 (7.4-10.4) fL Immature Gran % (Auto) 0.2 % Neut % (Auto) 74.0 % Lymph % (Auto) 18.1 % [place] % (Auto) 6.5 % Eos % (Auto) 1.1 % Baso % (Auto) 0.1 % Neut # (Auto) 6.19 (1.4-6.5) K/uL Lymph # (Auto) 1.51 (1.2-3.4) K/uL [place] # (Auto) 0.54 (0.11-0.59) K/uL Eos # (Auto) 0.09 (0-0.5) K/uL Baso # (Auto) 0.01 (0-0.2) K/uL Immature Gran # (Auto) 0.02 (0.00-0.02) K/uL PT (9.0-12.0) Seconds INR (0.9-1.1) VBG pH (7.36-7.41) VBG pCO2 (38-50) mmHg VBG pO2 mmHg VBG HCO3 mmol/L VBG O2 Saturation % VBG Base Excess mEq/L Barometric Pressure mm/Hg Sodium 142 (136-145) mmol/L Potassium 3.0 L (3.5-5.1) mmol/L Chloride 108 H (98-107) mmol/L Carbon Dioxide 26 (21-32) mmol/L Anion Gap 8 (3-11) BUN 10 (6-23) mg/dl Creatinine 0.74 (0.6-1.4) mg/dl Est Cr Clr Drug Dosing 97.3 ml/min Est GFR ( Amer) 109.1 ml/min Est GFR (Non-Af Amer) 94.1 ml/min BUN/Creatinine Ratio 13.5 (10-20) Glucose 93 (70-99(Fasting)) mg/dl Lactate (0.4-2.0) mmol/L Calcium 8.5 (8.5-10.1) mg/dl Phosphorus (2.5-4.9) mg/dl Magnesium 1.9 (1.7-2.4) mg/dl Total Bilirubin 1.1 H (0.2-1.0) mg/dl Direct Bilirubin (0-0.2) mg/dl AST 18 (13-39) U/L ALT 9 (7-52) U/L Alkaline Phosphatase 120 H (34-104) U/L Ammonia (18-72) umol/L Total Creatine Kinase 40 (30-223) U/L Troponin I High Sens (0-20) pg/ml Total Protein 6.2 (6.0-8.3) gm/dl Albumin 3.2 L (3.4-5.0) gm/dl Globulin 3.0 (2.5-4.0) gm/dl Albumin/Globulin Ratio 1.1 (0.9-2) Vitamin B1 Vitamin B12 Procalcitonin < 0.05 (0-0.5) ng/ml TSH (0.300-4.500) uIu/ml SARS-CoV-2, RNA, NAAT (NEGATIVE) 01/28/22 01/28/2201/28/22 Range/Units 17:18 17:18 17:18 WBC (4.8-10.8) K/uL RBC (4.7-6.1) M/uL Hgb (14.0-18.0) g/dL Hct (42-52) % MCV (80-100) fL MCH (25-34) pg MCHC (32-36) g/dL RDW Std Deviation (36.4-46.3) fL RDW Coeff of Brittney (11.5-14.5) % Plt Count (130-400) K/uL MPV (7.4-10.4) fL Immature Gran % (Auto) % Neut % (Auto) % Lymph % (Auto) % [place] % (Auto) % Eos % (Auto) % Baso % (Auto) % Neut # (Auto) (1.4-6.5) K/uL Lymph # (Auto) (1.2-3.4) K/uL [place] # (Auto) (0.11-0.59) K/uL Eos # (Auto) (0-0.5) K/uL Baso # (Auto) (0-0.2) K/uL Immature Gran # (Auto) (0.00-0.02) K/uL PT 13.0 H (9.0-12.0) Seconds INR 1.2 H (0.9-1.1) VBG pH (7.36-7.41) VBG pCO2 (38-50) mmHg VBG pO2 mmHg VBG HCO3 mmol/L VBG O2 Saturation % VBG Base Excess mEq/L Barometric Pressure mm/Hg Sodium (136-145) mmol/L Potassium (3.5-5.1) mmol/L Chloride (98-107) mmol/L Carbon Dioxide (21-32) mmol/L Anion Gap (3-11) BUN (6-23) mg/dl Creatinine (0.6-1.4) mg/dl Est Cr Clr Drug Dosing ml/min Est GFR ( Amer) ml/min Est GFR (Non-Af Amer) ml/min BUN/Creatinine Ratio (10-20) Glucose (70-99(Fasting)) mg/dl Lactate (0.4-2.0) mmol/L Calcium (8.5-10.1) mg/dl Phosphorus (2.5-4.9) mg/dl Magnesium (1.7-2.4) mg/dl Total Bilirubin (0.2-1.0) mg/dl Direct Bilirubin (0-0.2) mg/dl AST (13-39) U/L ALT (7-52) U/L Alkaline Phosphatase (34-104) U/L Ammonia (18-72) umol/L Total Creatine Kinase (30-223) U/L Troponin I High Sens 4.8 (0-20) pg/ml Total Protein (6.0-8.3) gm/dl Albumin (3.4-5.0) gm/dl Globulin (2.5-4.0) gm/dl Albumin/Globulin Ratio (0.9-2) Vitamin B1 Vitamin B12 Procalcitonin (0-0.5) ng/ml TSH 4.095 (0.300-4.500) uIu/ml SARS-CoV-2, RNA, NAAT (NEGATIVE) Diagnostic Findings Chest X-Ray 01/28/22 16:39 XR chest 1V portable HISTORY: weakness COMPARISON: None. FINDINGS: No pneumothorax. No pleural effusions. The heart is normal in size. This mild diffuse interstitial thickening which is likely chronic. Cervical spinal fusion hardware is noted. There are patchy right medial lung base airspace opacities which overlies the right heart border. IMPRESSION: Patchy right medial lung base airspace opacities which favor a pneumonia and could be due to aspiration. Follow-up chest x-ray one to 2 month is recommended to ensure resolution. ACT 112: Negative or not required by law. Electronically signed by: Abram Griffin M.D. 01/28/2022 5:[address] 01/28/22 16:[address] DOSE: 614.27 mGy.cm HISTORY: weakness, confusion TECHNIQUE: Multiaxial CT images of the head were performed without the use of intravenous contrast. Automated exposure control was utilized for this study. A dose lowering technique was utilized adhering to the principles of ALARA. Comparison: None. Findings: The paranasal sinuses and mastoid air cells are clear. The calvarium and skull base are intact. There is no mass, hematoma, midline shift, acute infarct. White matter hypodensity is nonspecific but suggestive of microvascular ischemic change. The ventricles and sulci demonstrate mild age-related involutional changes. Old lacunar infarcts seen within the bilateral basal ganglia and left thalamus. Impression: No acute intracranial abnormality. Atrophy and microvascular ischemic changes. ACT 112: Negative or not required by law. Electronically signed by: Abram Griffin M.D. 01/28/2022 5:56 PM Hip/Pelvis X-Ray 01/28/22 16:39 XR hip RT 2V w pelvis CLINICAL HISTORY: weakness, recent internal fixation of the right hip COMPARISON STUDY: None. FINDINGS: The patient is status post recent internal fixation of a right femoral intertrochanteric fracture with an intramedullary magdalena and interlocking femoral neck pin. The hardware appears intact. The alignment is near-anatomic. Skin dallas are in place. No dislocation. Vascular calcifications are noted. No fractures identified within the pelvis or left hip. IMPRESSION: The patient is status post recent internal fixation of a right femoral intertrochanteric fracture with an intramedullary magdalena and interlocking femoral neck pin. The hardware appears intact. No additional fractures identified. ACT 112: Negative or not required by law. Electronically signed by: Abram Griffin M.D. 01/28/2022 5:13 PM PG Care Time/CCT Total # of Minutes Spent Total Time Spent with Patient: Total time spent is greater than 50% in coordination of care (as documented) at patient's floor/unit and/or counseling patient: Coding Level of Care Code 13102 Subseq Obs Care Lvl 3 Diagnoses S/P right hip fracture Z87.81 Confusion R41.0 Hypertension I10 Dementia F03.90 BPH w urinary obs/LUTS N40.1; N13.8 Emphysema lung J43.9 Pulmonary infiltrate R91.8 Sundowning F05 Hypokalemia E87.6 CVA (cerebral vascular accident) I63.9 Cirrhosis K74.60
[2022-01-29] MEDS ORDERED: THIAMINE HCL 200 MG in SODIUM CHLORIDE 0.9% 50 ML IV STA (12:23)
[2022-01-29] MEDS ORDERED: PIPERACILLIN/TAZOBACTAM 3.375 GM in DEXTROSE 5% 100 ML IV SCH (12:30)
[2022-01-29] MEDS ORDERED: PIPERACILLIN/TAZOBACTAM 3.375 GM in DEXTROSE 5% 100 ML IV ONE (13:00)
--- NOTE | 2022-01-29 13:08 | Ultrasound Report ---
US liver CLINICAL HISTORY: confusion, elevated Tb/alp COMPARISON STUDY: No previous studies for comparison. FINDINGS: No hepatic lesions are identified. There is slight coarsening of hepatic echotexture and no dularity of the liver surface. There is no biliary ductal dilatation. Common bile duct measures 2 mm in caliber. Gallbladder is filled with stones. Bladder wall is slightly thickened, measuring 3 mm. Ga llbladder is not distended. There is no pericholecystic fluid. No sonographic Gongora sign was reporte d. Pancreatic body is normal. Head and tail are slightly obscured. There is no right hydronephrosis. Small right pleural effusion is incidentally noted. IMPRESSION: 1. Gallbladder filled with gallstones. No convincing evidence for acute cholecystitis. No biliary renetta griselda dilatation. 2. Coarsening of hepatic echotexture and nodularity of the liver surface suggestive of cirrhosis. No hepatic lesions by sonography. 3. Small right pleural effusion. ACT 112: Negative or not required by law. Electronically signed by: Roosevelt Trammell M.D. 01/29/2022 1:07 PM
--- NOTE | 2022-01-29 13:16 | Fluoroscopy Report ---
MODIFIED BARIUM SWALLOW CLINICAL HISTORY: r/o aspiration COMPARISON STUDY: None. FLUOROSCOPY TIME: 2.8 minutes. TECHNIQUE: A modified barium swallow was performed in conjunction with Speech Pathology. The patient ingested varying consistencies of barium containing material. Video fluoroscopy was performed. FINDINGS: Multilevel anterior fusion and discectomy within the cervical spine is incidentally noted. This exam was compromised given difficulty positioning. Several episodes of tracheal aspiration were noted with thin liquids by spoon and cup. This elicited a cough. No aspiration was identified with mi ldly thick liquids, pudding or crackers with paste. There was prolonged mastication with crackers wit h paste. IMPRESSION: 1. Several episodes of tracheal aspiration with thin liquids by spoon and cup. No aspiration with the remainder of the consistencies. 2. Full recommendations by Speech pathology to follow. ACT 112: Negative or not required by law. Electronically signed by: Roosevelt Trammell M.D. 01/29/2022 1:15 PM
[2022-01-29 14:08] LABS: Lyme Ab IgG w/WB Rflx Negative (Negative)
[2022-01-29] MEDS: FAMOTIDINE 20 MG in SYRINGE 3 ML IV SCH (14:08)
--- NOTE | 2022-01-29 14:10 | Ultrasound Report ---
US venous doppler LE RT HISTORY: 71 years-old Male s/p hip fx/repair, swelling, r/o DVT Acute sweeling of the right lower le g COMPARISON: None TECHNIQUE: Multiple real-time sonographic images of the right lower extremity deep venous structures were obtained assessing grayscale appearance, color and spectral flow. FINDINGS: Normal flow, compressibility, phasicity and augmentation. IMPRESSION: No sonographic evidence of deep venous thrombosis. ACT 112: Negative or not required by law. The above report was generated using voice recognition software. It may contain grammatical, syntax o r spelling errors. Electronically signed by: Andrei Castaneda M.D. 01/29/2022 2:08 PM
[2022-01-29 14:12] LABS: Lyme Ab IgM w/WB Rflx Positive (Negative)
[2022-01-29 15:09] LABS: Appearance Urine Clear (Clear); Bacteria Urine Automated Negative (Negative); Bilirubin Urine Negative (Negative); Blood Urine 1+ (Negative); Cast Urine Automated 0 /lpf (0-5); Color Urine Yellow; Glucose Urine UA Negative (Negative); Ketones Urine Negative (Negative); Leukocyte Esterase Urine Negative (Negative); Nitrite Urine Negative (Negative); Protein Urine Negative (Negative); Specific Gravity Urine 1.014 (1.000-1.030); Urobilinogen Urine Positive (Negative)
[2022-01-29] MEDS ORDERED: ALBUTEROL HFA 8 GM INHALER INH PRN (16:58)
[2022-01-29] MEDS: LORazepam 0.5 MG TAB PO PRN (17:55)
[2022-01-29] MEDS: RIVAROXABAN 10 MG TABLET PO SCH (19:43)
[2022-01-29] MEDS: AMPICILLIN/SULBACTAM SOD 3,000 MG in 0.9 % SODIUM CHLORIDE 100 ML IV SCH (19:43)
[2022-01-29] MEDS: THIAMINE HCL 200 MG in SODIUM CHLORIDE 0.9% 50 ML IV SCH (19:44)
[2022-01-30] MEDS: AMPICILLIN/SULBACTAM SOD 3,000 MG in 0.9 % SODIUM CHLORIDE 100 ML IV SCH ×4 (04:30→19:57)
[2022-01-30 07:12] LABS: Basophils # (auto) 0.01 K/uL (0-0.2); Basophils % (auto) 0.1 %; Eosinophils # (auto) 0.16 K/uL (0-0.5); Eosinophils % (auto) 1.8 %; Hematocrit (blood only) 29.1 % (42-52); Hemoglobin 9.5 g/dL (14.0-18.0); Immature Granulocytes # (auto) 0.02 K/uL (0.00-0.02); Immature Granulocytes % (auto) 0.2 %; Lymphocytes % (auto) 14.8 %; Mean Corpuscular Hemoglobin 30.4 pg (25-34); Mean Corpuscular Hgb Conc 32.6 g/dL (32-36); Mean Corpuscular Volume 93.3 fL (80-100); Mean Platelet Volume 10.3 fL (7.4-10.4); Monocytes # (auto) 0.55 K/uL (0.11-0.59); Monocytes % (auto) 6.3 %; Neutrophils # (auto) 6.74 K/uL (1.4-6.5); Neutrophils % (auto) 76.8 %; Platelet Count 298 K/uL (130-400); RDW Coefficient of Variation 16.2 % (11.5-14.5); RDW Standard Deviation 54.8 fL (36.4-46.3); Red Blood Count 3.12 M/uL (4.7-6.1); White Blood Count 8.78 K/uL (4.8-10.8)
[2022-01-30 07:21] LABS: Albumin Level 2.9 gm/dl (3.4-5.0); BUN Creatinine Ratio 9.6 (10-20); Bilirubin Direct 0.2 mg/dl (0-0.2); Calcium 8.7 mg/dl (8.5-10.1); Creatinine Clr Calc Pharmacy 90.5 ml/min; Est GFR (African American) 109.7 ml/min; Est GFR (Non-African American) 94.6 ml/min; Potassium 3.9 mmol/L (3.5-5.1); Total Protein 5.6 gm/dl (6.0-8.3)
--- NOTE | 2022-01-30 08:19 | Hospitalist Progress Note ---
Date of Service January 30, 2022 Assessment & Plan (1) Confusion: Plan: Patient with underlying dementia - has poor memory, unable to recollect details of events prior to arrival or details of his recent surgery. Per son, issues with confusion in afternoon/evening, especially around 3;30pm. Takes Ativan 1mg in am as needed, 1/2 tablet in afternoon. this has been ordered in case of confusion CT head negative Not hypoxic Patient confused today, but pleasant. Unaware passed 2 months ago and has been living with son since discharge. Hx dementia per son, but worsened recently Hx aspiration pneumonia and choked on supplemental potassium given on admission Speech eval -- swallow study. aspiration with 50% of thins. Dietary modification in place Lungs sound junky (although typically on 3L O2 at home chronically, and has been stable on room air, hx COPD) --> CXR with RML opacities, and given prior episode aspiration pneumonia in 2016, given dose of Zosyn as was recently in [place], but continues on Unasyn for aspiration pneumonia and WBC elevated to 10.8k on AM labs, returned to normal after abx Procal negative UA pending given confusion -- had to place erickson due to incontinence. Negative for evidence for infection. RBCs likely due to insertion but did not urobilinogen Ammonia low Ordered B12/folate replacement and check labs for completeness -- no deficiency noted Will also check B1 to am labs--> ordered thiamine IV replacement given hx a lcohol use/abuse and son dose endorse giving father 1-2 beers at night several nights a week at home BCs pending RUQ US obtained given confusion and elevated ALP on labs, although recent ORIF as above --> RUQ with GB filled with gallstones, no convincing evidence for acute cholecystitis. No biliary ductal dilatation. Coarsening of hepatic echotexture and nodularity of the liver surface suggestive of cirrhosis (likely from history of alcohol use/abuse). Small R pleural effusion ALP still elevated. GI on consult. ?need for HIDA although reporting no abdominal pain Did get Zosyn x 2 doses, switched to Unasyn for aspiration pneumonia as above as repeat procal negative but if worsens would place back on Zosyn --> Lyme checked, IgM positive. --> Will place on Doxycycline IV BID empirically and monitor WB Frequent orientation Continue to monitor (2) Lyme disease: Plan: Son reports patient bit in past by multiple ticks but has never been tested for or treated for such in the past. added to labs given confusion. IgM positive start doxycycline empirically, await WB (3) S/P right hip fracture: Plan: S/p right hip fracture with repair 14 days ago at [facility]. Details unavailable (records have been requested) Wound with [place] in place - does not appear to be infected. Uncertain why patient is on Xarelto - patient said he has had a blood clot before but is unable to say if it was in his leg or lung? Per son, Stuart, placed on Xarelto for DVT prevention following hip surgery, and he did give dad dose last evening prior to having EMS called He has been living with son since discharge, history of dementia, per son related to alcohol (confirmed and asked patient about drinking and he did endorse this despite confusion, and B12/folate on EMS medications list). Per son, patient has been pretty much bed bound, and unable to take care of/transfers as of lately. Wondered if possible UTI as well given he has gotten like this in the past. Ordered Xarelto as not ordered on admission PT/OT consulted -- recommend SNF CM following To have sutures removed in next 3 days, can remove on Tuesday Pain control with tylenol as needed. Supportive care for now See below regarding confusion (4) Cirrhosis: Plan: noted on RUQ US, obtained given confusion and TB 1.1 with elevated ALP on admission, likely 2nd to long standing alcohol use (although recent ALP could be from bone given recent fx, vit D wnl) recommend cessation moving forward ammonia not elevated ALP up, but decreased from admission. RUQ with stones but no RUQ pain on exam noted but will need close monitoring LFts in AM, consultation with GI as well given cirrhosis (5) Pulmonary infiltrate: Plan: Patient with infiltrates noted on CXR. He reports dry cough. No leukocytosis, negative Procalcitonin. Do not strongly suspect PNA. ?aspiration - nursing noted cough after PO medications. Patient with history of CVA, at risk for aspiration. -Dysphagia screening -Speech/Swallow evaluation -Aspiration precautions Got ZOsyn in ER 4.5mg, additional dose 01/29 and discussed with pharmacy low risk HAP (despite recent in hospital for ORIF as above) and de-escalated to Unasyn for now but if any worsening confusion/fever/WBC elevation would go back to Zosyn Blood cultures pending Sputum cx if able to produce COntinue incentive spirometer Monitor (6) Hypertension: Plan: Blood pressure presently well controlled, 130/59 On lisinopril at home, but holding for now while assessing PO intake Monitor (7) Dementia: Plan: Frequent orientation. Worsening since past 2 months ago as well (she from aspiration pneumonia/sepsis/ischemic bowel/kidney failure, apparently at this institution 2 months ago in the hospital. traumatic experience) Avoidance of delirium inducing agents but did add Ativan as needed instead of scheduled as takes at home and would want to prevent withdrawal B12/TSH/B1 checking as above --> B12 wnl, TSH wnl B1 pending but place on empiric (8) BPH w urinary obs/LUTS: Plan: Patient reports no difficulty with urination. Continue Flomax 0.4mg daily Erickson placed, UA without evidence for infection. Monitor/voiding trial prior to discharge. Had been having issues with incontinence (9) Emphysema lung: Plan: Adequate oxygenation. No wheezing. Albuterol as needed, ordered Supplemental O2 as needed - goal saturation 92% and has remained stable on room air at this time but can place on O2 to maintain sats Monitor (10) : Plan: reported by son and usually well manageable with his baseline ativan, which has only been ordered prn given confusion to prevent worsening confusion (11) Hypokalemia: Plan: K 3.0 on admission, replacement ordered. 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 Mag 2.0 (12) CVA (cerebral vascular accident): Plan: Hx of CVA with R sided weakness per PCP note with episode of expressive aphasia April 2010 Also notes a history of polycythemia and regular phlebotomies? Hgb not elevated, no active bleeding noted Small hematoma to site of R hip ORIF but stable from day prior. Xray with stable placement. Consider imaging if worsening counts Plan: continued inpatient stay PT/OT consulted, son unable to take home/care for him in current state and updated 01/30 (plans on visiting tomorrow) likely to at least need rehab, if not subacute nurse placement Admission and Anticipated Discharge Date Admission Date: January 28, 2022 Subjective Patient evaluated this morning. Stable per nursing, cooperative and calm. Some pulling at catheter at times and sometimes moving adductor pillow and not remaining in place. Had some pain reported this morning to his R hip, given tylenol, and stated not having any pain when I saw him. He states the year is 2023, not sure of the month but states "I loose track of time". Knows he broke his hip but unsure why he is in the hospital. Still thinks home with . Discussed I did speak with son Stuart and will be calling him this afternoon. +Cough but not bringing up any sputum. On room air with SpO2 90% but discussed with nursing and patient uses 3L at baseline, to place if needed. No fever/chills reported. He denies chest pain, shortness of breath, abdominal pain, nausea or vomiting. Discussed Lyme IgM positive on initial testing and will place on Doxycycline and await WB. Review of Systems Review of Systems: All systems reviewed & are unremarkable except as noted in HPI & below Physical Exam Physical Exam: General: WN/WD male sitting in bed, covered up, no acute distress, pulling slightly at his catheter HEENT: poor dentition, slightly dry mm, trachea midline, no deviation Resp: on room air, RML/RLL crackles/rales, end expiratory wheezing, able to talk in complete sentences, +cough spo2 90% CV: RRR, no murmur, rub, gallop, cap refill wnl GI: +BS, soft, non-tender, no guarding/rigidity : erickson draining yellow urine Psych: alert to person, not place/time/event, cooperative Neuro/MSK: speech slow at times, garbled, flexion contracture RUE/RLE with strength 2/5. LLE with stitches in place, surrounding ecchymosis, slightly tender to palpation, externally rotated, adductor pillow in place. slight edema L calf compared to right, slightly warm, non-tender to palpation (decreased swelling today) Results & Data Results & Data ([facility]) Vital Signs (Past 12 Hours) Vital Signs Temp Pulse Resp BP Pulse Ox 01/30/22 07:18 36.9 C 61 18 130/59 L 90 01/29/22 22:43 37.1 C 63 20 145/67 H Laboratory Results 01/30/22 01/30/22 01/30/22 Range/Units 06:24 06:24 06:24 WBC 8.78 (4.8-10.8) K/uL RBC 3.12 L (4.7-6.1) M/uL Hgb 9.5 L (14.0-18.0) g/dL Hct 29.1 L (42-52) % MCV 93.3 (80-100) fL MCH 30.4 (25-34) pg MCHC 32.6 (32-36) g/dL RDW Std Deviation 54.8 H (36.4-46.3) fL RDW Coeff of Brittney 16.2 H (11.5-14.5) % Plt Count 298 (130-400) K/uL MPV 10.3 (7.4-10.4) fL Immature Gran % (Auto) 0.2 % Neut % (Auto) 76.8 % Lymph % (Auto) 14.8 % [place] % (Auto) 6.3 % Eos % (Auto) 1.8 % Baso % (Auto) 0.1 % Neut # (Auto) 6.74 H (1.4-6.5) K/uL Lymph # (Auto) 1.30 (1.2-3.4) K/uL [place] # (Auto) 0.55 (0.11-0.59) K/uL Eos # (Auto) 0.16 (0-0.5) K/uL Baso # (Auto) 0.01 (0-0.2) K/uL Immature Gran # (Auto) 0.02 (0.00-0.02) K/uL Sodium 143 (136-145) mmol/L Potassium 3.9 (3.5-5.1) mmol/L Chloride 111 H (98-107) mmol/L Carbon Dioxide 28 (21-32) mmol/L Anion Gap 4 (3-11) BUN 7 (6-23) mg/dl Creatinine 0.73 (0.6-1.4) mg/dl Est Cr Clr Drug Dosing 90.5 ml/min Est GFR ( Amer) 109.7 ml/min Est GFR (Non-Af Amer) 94.6 ml/min BUN/Creatinine Ratio 9.6 L (10-20) Glucose 103 H (70-99(Fasting)) mg/dl Calcium 8.7 (8.5-10.1) mg/dl Magnesium 2.0 (1.7-2.4) mg/dl Total Bilirubin 1.0 (0.2-1.0) mg/dl Direct Bilirubin 0.2 (0-0.2) mg/dl AST 13 (13-39) U/L ALT 7 (7-52) U/L Alkaline Phosphatase 124 H (34-104) U/L Total Protein 5.6 L (6.0-8.3) gm/dl Albumin 2.9 L (3.4-5.0) gm/dl Vitamin B1 Vitamin B12 (180-914) pg/ml 25-OH Vitamin D Total 51.8 (30-100) ng/ml Procalcitonin (0-0.5) ng/ml Urine Color Urine Appearance (Clear) Urine pH (4.5-7.5) Ur Specific [place] (1.000-1.030) Urine Protein (Negative) Urine Glucose (UA) (Negative) Urine Ketones (Negative) Urine Blood (Negative) Urine Nitrite (Negative) Urine Bilirubin (Negative) Urine Urobilinogen (Negative) Ur Leukocyte Esterase (Negative) Urine WBC (Auto) (0-5) /hpf Urine RBC (Auto) (0-4) /hpf U Hyaline Cast (Auto) (0-5) /lpf U Epithel Cells (Auto) (0-5) /lpf Urine Bacteria (Auto) (Negative) Lyme Disease IgG Ab (Negative) Lyme IgG (Western Blot) Lyme IgG 18 kDa Band Lyme IgG 23 kDa Band Lyme IgG 28 kDa Band Lyme IgG 30 kDa Band Lyme IgG 39 kDa Band Lyme IgG 41 kDa Band Lyme IgG 45 kDa Band Lyme IgG 58 kDa Band Lyme IgG 66 kDa Band Lyme IgG 93 kDa Band Lyme IgM Ab (WB) Lyme Disease IgM Ab (Negative) Lyme IgM 23 kDa Band Lyme IgM 39 kDa Band Lyme IgM 41 kDa Band Hepatitis A IgM Ab Hep Bs Antigen Hep Bs Ag Confirmation Hep B Core IgM Ab Hepatitis C Ab (EIA) Hep C Ab Signal/Cutoff 01/29/22 01/29/22 01/29/22 Range/Units 18:29 14:45 12:53 WBC (4.8-10.8) K/uL RBC (4.7-6.1) M/uL Hgb (14.0-18.0) g/dL Hct (42-52) % MCV (80-100) fL MCH (25-34) pg MCHC (32-36) g/dL RDW Std Deviation (36.4-46.3) fL RDW Coeff of Brittney (11.5-14.5) % Plt Count (130-400) K/uL MPV (7.4-10.4) fL Immature Gran % (Auto) % Neut % (Auto) % Lymph % (Auto) % [place] % (Auto) % Eos % (Auto) % Baso % (Auto) % Neut # (Auto) (1.4-6.5) K/uL Lymph # (Auto) (1.2-3.4) K/uL [place] # (Auto) (0.11-0.59) K/uL Eos # (Auto) (0-0.5) K/uL Baso # (Auto) (0-0.2) K/uL Immature Gran # (Auto) (0.00-0.02) K/uL Sodium (136-145) mmol/L Potassium (3.5-5.1) mmol/L Chloride (98-107) mmol/L Carbon Dioxide (21-32) mmol/L Anion Gap (3-11) BUN (6-23) mg/dl Creatinine (0.6-1.4) mg/dl Est Cr Clr Drug Dosing ml/min Est GFR ( Amer) ml/min Est GFR (Non-Af Amer) ml/min BUN/Creatinine Ratio (10-20) Glucose (70-99(Fasting)) mg/dl Calcium (8.5-10.1) mg/dl Magnesium (1.7-2.4) mg/dl Total Bilirubin (0.2-1.0) mg/dl Direct Bilirubin (0-0.2) mg/dl AST (13-39) U/L ALT (7-52) U/L Alkaline Phosphatase (34-104) U/L Total Protein (6.0-8.3) gm/dl Albumin (3.4-5.0) gm/dl Vitamin B1 Vitamin B12 (180-914) pg/ml 25-OH Vitamin D Total (30-100) ng/ml Procalcitonin < 0.05 (0-0.5) ng/ml Urine Color Yellow Urine Appearance Clear (Clear) Urine pH 7.0 (4.5-7.5) Ur Specific [place] 1.014 (1.000-1.030) Urine Protein Negative (Negative) Urine Glucose (UA) Negative (Negative) Urine Ketones Negative (Negative) Urine Blood 1+ H (Negative) Urine Nitrite Negative (Negative) Urine Bilirubin Negative (Negative) Urine Urobilinogen Positive H (Negative) Ur Leukocyte Esterase Negative (Negative) Urine WBC (Auto) 1-5 (0-5) /hpf Urine RBC (Auto) 5-10 H (0-4) /hpf U Hyaline Cast (Auto) 0 (0-5) /lpf U Epithel Cells (Auto) 5-10 H (0-5) /lpf Urine Bacteria (Auto) Negative (Negative) Lyme Disease IgG Ab (Negative) Lyme IgG (Western Blot) Lyme IgG 18 kDa Band Lyme IgG 23 kDa Band Lyme IgG 28 kDa Band Lyme IgG 30 kDa Band Lyme IgG 39 kDa Band Lyme IgG 41 kDa Band Lyme IgG 45 kDa Band Lyme IgG 58 kDa Band Lyme IgG 66 kDa Band Lyme IgG 93 kDa Band Lyme IgM Ab (WB) Lyme Disease IgM Ab (Negative) Lyme IgM 23 kDa Band Lyme IgM 39 kDa Band Lyme IgM 41 kDa Band Hepatitis A IgM Ab Pending Hep Bs Antigen Pending Hep Bs Ag Confirmation Pending Hep B Core IgM Ab Pending Hepatitis C Ab (EIA) Pending Hep C Ab Signal/Cutoff Pending 01/29/22 01/29/22 01/29/22 Range/Units 12:24 12:24 12:24 WBC (4.8-10.8) K/uL RBC (4.7-6.1) M/uL Hgb (14.0-18.0) g/dL Hct (42-52) % MCV (80-100) fL MCH (25-34) pg MCHC (32-36) g/dL RDW Std Deviation (36.4-46.3) fL RDW Coeff of Brittney (11.5-14.5) % Plt Count (130-400) K/uL MPV (7.4-10.4) fL Immature Gran % (Auto) % Neut % (Auto) % Lymph % (Auto) % [place] % (Auto) % Eos % (Auto) % Baso % (Auto) % Neut # (Auto) (1.4-6.5) K/uL Lymph # (Auto) (1.2-3.4) K/uL [place] # (Auto) (0.11-0.59) K/uL Eos # (Auto) (0-0.5) K/uL Baso # (Auto) (0-0.2) K/uL Immature Gran # (Auto) (0.00-0.02) K/uL Sodium (136-145) mmol/L Potassium (3.5-5.1) mmol/L Chloride (98-107) mmol/L Carbon Dioxide (21-32) mmol/L Anion Gap (3-11) BUN (6-23) mg/dl Creatinine (0.6-1.4) mg/dl Est Cr Clr Drug Dosing ml/min Est GFR ( Amer) ml/min Est GFR (Non-Af Amer) ml/min BUN/Creatinine Ratio (10-20) Glucose (70-99(Fasting)) mg/dl Calcium (8.5-10.1) mg/dl Magnesium (1.7-2.4) mg/dl Total Bilirubin (0.2-1.0) mg/dl Direct Bilirubin (0-0.2) mg/dl AST (13-39) U/L ALT (7-52) U/L Alkaline Phosphatase (34-104) U/L Total Protein (6.0-8.3) gm/dl Albumin (3.4-5.0) gm/dl Vitamin B1 Pending Vitamin B12 (180-914) pg/ml 25-OH Vitamin D Total (30-100) ng/ml Procalcitonin (0-0.5) ng/ml Urine Color Urine Appearance (Clear) Urine pH (4.5-7.5) Ur Specific [place] (1.000-1.030) Urine Protein (Negative) Urine Glucose (UA) (Negative) Urine Ketones (Negative) Urine Blood (Negative) Urine Nitrite (Negative) Urine Bilirubin (Negative) Urine Urobilinogen (Negative) Ur Leukocyte Esterase (Negative) Urine WBC (Auto) (0-5) /hpf Urine RBC (Auto) (0-4) /hpf U Hyaline Cast (Auto) (0-5) /lpf U Epithel Cells (Auto) (0-5) /lpf Urine Bacteria (Auto) (Negative) Lyme Disease IgG Ab Negative (Negative) Lyme IgG (Western Blot) Pending Lyme IgG 18 kDa Band Pending Lyme IgG 23 kDa Band Pending Lyme IgG 28 kDa Band Pending Lyme IgG 30 kDa Band Pending Lyme IgG 39 kDa Band Pending Lyme IgG 41 kDa Band Pending Lyme IgG 45 kDa Band Pending Lyme IgG 58 kDa Band Pending Lyme IgG 66 kDa Band Pending Lyme IgG 93 kDa Band Pending Lyme IgM Ab (WB) Pending Lyme Disease IgM Ab Positive A (Negative) Lyme IgM 23 kDa Band Pending Lyme IgM 39 kDa Band Pending Lyme IgM 41 kDa Band Pending Hepatitis A IgM Ab Hep Bs Antigen Hep Bs Ag Confirmation Hep B Core IgM Ab Hepatitis C Ab (EIA) Hep C Ab Signal/Cutoff 01/29/22 Range/Units 12:24 WBC (4.8-10.8) K/uL RBC (4.7-6.1) M/uL Hgb (14.0-18.0) g/dL Hct (42-52) % MCV (80-100) fL MCH (25-34) pg MCHC (32-36) g/dL RDW Std Deviation (36.4-46.3) fL RDW Coeff of Brittney (11.5-14.5) % Plt Count (130-400) K/uL MPV (7.4-10.4) fL Immature Gran % (Auto) % Neut % (Auto) % Lymph % (Auto) % [place] % (Auto) % Eos % (Auto) % Baso % (Auto) % Neut # (Auto) (1.4-6.5) K/uL Lymph # (Auto) (1.2-3.4) K/uL [place] # (Auto) (0.11-0.59) K/uL Eos # (Auto) (0-0.5) K/uL Baso # (Auto) (0-0.2) K/uL Immature Gran # (Auto) (0.00-0.02) K/uL Sodium (136-145) mmol/L Potassium (3.5-5.1) mmol/L Chloride (98-107) mmol/L Carbon Dioxide (21-32) mmol/L Anion Gap (3-11) BUN (6-23) mg/dl Creatinine (0.6-1.4) mg/dl Est Cr Clr Drug Dosing ml/min Est GFR ( Amer) ml/min Est GFR (Non-Af Amer) ml/min BUN/Creatinine Ratio (10-20) Glucose (70-99(Fasting)) mg/dl Calcium (8.5-10.1) mg/dl Magnesium (1.7-2.4) mg/dl Total Bilirubin (0.2-1.0) mg/dl Direct Bilirubin (0-0.2) mg/dl AST (13-39) U/L ALT (7-52) U/L Alkaline Phosphatase (34-104) U/L Total Protein (6.0-8.3) gm/dl Albumin (3.4-5.0) gm/dl Vitamin B1 Vitamin B12 1031 H (180-914) pg/ml 25-OH Vitamin D Total (30-100) ng/ml Procalcitonin (0-0.5) ng/ml Urine Color Urine Appearance (Clear) Urine pH (4.5-7.5) Ur Specific [place] (1.000-1.030) Urine Protein (Negative) Urine Glucose (UA) (Negative) Urine Ketones (Negative) Urine Blood (Negative) Urine Nitrite (Negative) Urine Bilirubin (Negative) Urine Urobilinogen (Negative) Ur Leukocyte Esterase (Negative) Urine WBC (Auto) (0-5) /hpf Urine RBC (Auto) (0-4) /hpf U Hyaline Cast (Auto) (0-5) /lpf U Epithel Cells (Auto) (0-5) /lpf Urine Bacteria (Auto) (Negative) Lyme Disease IgG Ab (Negative) Lyme IgG (Western Blot) Lyme IgG 18 kDa Band Lyme IgG 23 kDa Band Lyme IgG 28 kDa Band Lyme IgG 30 kDa Band Lyme IgG 39 kDa Band Lyme IgG 41 kDa Band Lyme IgG 45 kDa Band Lyme IgG 58 kDa Band Lyme IgG 66 kDa Band Lyme IgG 93 kDa Band Lyme IgM Ab (WB) Lyme Disease IgM Ab (Negative) Lyme IgM 23 kDa Band Lyme IgM 39 kDa Band Lyme IgM 41 kDa Band Hepatitis A IgM Ab Hep Bs Antigen Hep Bs Ag Confirmation Hep B Core IgM Ab Hepatitis C Ab (EIA) Hep C Ab Signal/Cutoff Diagnostic Findings Liver Ultrasound 01/29/22 09:07 US liver CLINICAL HISTORY: confusion, elevated Tb/alp COMPARISON STUDY: No previous studies for comparison. FINDINGS: No hepatic lesions are identified. There is slight coarsening of hepatic echotexture and nodularity of the liver surface. There is no biliary ductal dilatation. Common bile duct measures 2 mm in caliber. Gallbladder is filled with stones. Bladder wall is slightly thickened, measuring 3 mm. Gallbladder is not distended. There is no pericholecystic fluid. No sonographic Gongora sign was reported. Pancreatic body is normal. Head and tail are slightly obscured. There is no right hydronephrosis. Small right pleural effusion is incidentally noted. IMPRESSION: 1. Gallbladder filled with gallstones. No convincing evidence for acute cholecystitis. No biliary ductal dilatation. 2. Coarsening of hepatic echotexture and nodularity of the liver surface suggestive of cirrhosis. No hepatic lesions by sonography. 3. Small right pleural effusion. ACT 112: Negative or not required by law. Electronically signed by: Roosevelt Trammell M.D. 01/29/2022 1:07 PM Videofluoroscopic Swallow 01/29/22 11:30 MODIFIED BARIUM SWALLOW CLINICAL HISTORY: r/o aspiration COMPARISON STUDY: None. FLUOROSCOPY TIME: 2.8 minutes. TECHNIQUE: A modified barium swallow was performed in conjunction with Speech Pathology. The patient ingested varying consistencies of barium containing material. Video fluoroscopy was performed. FINDINGS: Multilevel anterior fusion and discectomy within the cervical spine is incidentally noted. This exam was compromised given difficulty positioning. Several episodes of tracheal aspiration were noted with thin liquids by spoon and cup. This elicited a cough. No aspiration was identified with mildly thick liquids, pudding or crackers with paste. There was prolonged mastication with crackers with paste. IMPRESSION: 1. Several episodes of tracheal aspiration with thin liquids by spoon and cup. No aspiration with the remainder of the consistencies. 2. Full recommendations by Speech pathology to follow. ACT 112: Negative or not required by law. Electronically signed by: Roosevelt Trammell M.D. 01/29/2022 1:15 PM Venous Doppler Study 01/29/22 12:36 US venous doppler LE RT HISTORY: 71 years-old Male s/p hip fx/repair, swelling, r/o DVT Acute sweeling of the right lower leg COMPARISON: None TECHNIQUE: Multiple real-time sonographic images of the right lower extremity deep venous structures were obtained assessing grayscale appearance, color and spectral flow. FINDINGS: Normal flow, compressibility, phasicity and augmentation. IMPRESSION: No sonographic evidence of deep venous thrombosis. ACT 112: Negative or not required by law. The above report was generated using voice recognition software. It may contain grammatical, syntax or spelling errors. Electronically signed by: Andrei Castaneda M.D. 01/29/2022 2:08 PM PG Care Time/CCT Total # of Minutes Spent Total Time Spent with Patient: Total time spent is greater than 50% in coordination of care (as documented) at patient's floor/unit and/or counseling patient: Coding Level of Care Code 80524 Subseq Hosp Care Lvl 3 Diagnoses S/P right hip fracture Z87.81 Confusion R41.0 Cirrhosis K74.60 Pulmonary infiltrate R91.8 Hypertension I10 Dementia F03.90 BPH w urinary obs/LUTS N40.1; N13.8 Emphysema lung J43.9 Sundowning F05 Hypokalemia E87.6 CVA (cerebral vascular accident) I63.9 Lyme disease A69.20
[2022-01-30] MEDS: FOLIC ACID 400 MCG TAB PO SCH (09:15)
[2022-01-30] MEDS: FAMOTIDINE 20 MG in SYRINGE 3 ML IV SCH (09:19)
[2022-01-30] MEDS: ACETAMINOPHEN 325 MG TAB PO PRN (09:22)
[2022-01-30] MEDS: THIAMINE HCL 200 MG in SODIUM CHLORIDE 0.9% 50 ML IV SCH ×2 (09:49→19:44)
[2022-01-30] MEDS: DOXYCYCLINE HYCLATE 100 MG in DEXTROSE 5% 100 ML IV SCH ×2 (10:11→19:57)
[2022-01-30] MEDS: DOCUSATE SODIUM/SENNA 50/8.6MG TAB PO SCH (14:30)
--- NOTE | 2022-01-30 14:49 | Gastrointestinal Consultation ---
Date of Consultation January 30, 2022 Assessment & Plan (1) Cirrhosis: (2) Confusion: (3) Dementia: confusion and fever in the setting of underlying dementia and what appears to be cirrhosis: do not suspect he is encephalopathic at this time, rather given the fever would rule out underlying infection and consider his dementia as main causes of his confusion. regarding his abnormal US and the cholelithiasis, LFTs are currently unremarkable would monitor for now. 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 Patient is a limited historian and is unable to provide details of events prior to arrival. He had recent ORIF right femur 2 weeks ago. GI consulted for possible cirrhosis and confusion. Upon review of his labs and imaging he does appear to have findings consistent with cirrhosis, albumin and INR both abnormal. ammonia is unremarkable. He has had fever for few days prior to arrival, weakness, and confusion. currently he is not oriented to time or place. LFTs unremarkable, US with cholelithiasis. labs reviewed. Allergies Allergy/AdvReac Type Severity Reaction Status Date / Time No Known Allergies Allergy Verified 01/28/22 20:59 Home Medications Medication Instructions Recorded Confirmed Type tamsulosin 0.4 mg capsule (Flomax) 0.4 mg PO QPM #30 cap 07/07/20 Rx Patient History Medical History Arthritis Asthma Dementia Emphysema lung Hypertension Skin cancer Stroke 2009 with residual right sided weakness Surgical History History of fusion of cervical spine History of open reduction and internal fixation (ORIF) procedure right femur Family History Other No significant family history Social History Smoking Status: Unknown if ever smoked Hx Alcohol Use: Yes Alcohol type: beer Alcohol Intake Frequency: 4 or More x per/Week Hx Substance Use: No Preferred Language: Bengali Communication Ability: Impaired Educational Interpreter Required: No Beliefs That Will Affect Care: None marital status: / Current Living Situation Comment: patient states he lives alone with judaism people that help could not name c How many Children do You have: 1 Feels Safe at Home: Yes Assistive Devices: Walker and Wheelchair Review of Systems Review of Systems: Unobtainable due to cognitive status Physical Exam Psychiatric: Orientation: + not oriented to place and + not oriented to time Apperance: + disheveled confused Results & Data ([facility]) Vital Signs (Past 12 Hours) Vital Signs Temp Pulse Resp BP Pulse Ox 01/30/22 07:18 36.9 C 61 18 130/59 L 90 PG Care Time/CCT Total # of Minutes Spent Total Time Spent with Patient: Total time spent is greater than 50% in coordination of care (as documented) at patient's floor/unit and/or counseling patient: Coding Level of Care Code None Diagnoses Cirrhosis K74.60 Confusion R41.0 Dementia F03.90
[2022-01-30] MEDS: RIVAROXABAN 10 MG TABLET PO SCH (19:57)
[2022-01-31] MEDS: LORazepam 0.5 MG TAB PO PRN ×2 (00:32→15:07)
[2022-01-31] MEDS: AMPICILLIN/SULBACTAM SOD 3,000 MG in 0.9 % SODIUM CHLORIDE 100 ML IV SCH ×4 (03:42→23:36)
[2022-01-31 05:56] LABS: HBSAG NON-REACTIVE (NON-REACTIVE); Hepatitis A Antibody IgM NON-REACTIVE (NON-REACTIVE); Hepatitis B Core Antibody IgM NON-REACTIVE (NON-REACTIVE)
[2022-01-31 06:27] LABS: Basophils # (auto) 0.02 K/uL (0-0.2); Basophils % (auto) 0.2 %; Eosinophils % (auto) 2.5 %; Hematocrit (blood only) 28.6 % (42-52); Hemoglobin 9.4 g/dL (14.0-18.0); Immature Granulocytes # (auto) 0.02 K/uL (0.00-0.02); Immature Granulocytes % (auto) 0.2 %; Lymphocytes # (auto) 1.38 K/uL (1.2-3.4); Mean Corpuscular Hemoglobin 30.7 pg (25-34); Mean Corpuscular Hgb Conc 32.9 g/dL (32-36); Mean Corpuscular Volume 93.5 fL (80-100); Mean Platelet Volume 10.2 fL (7.4-10.4); Monocytes # (auto) 0.49 K/uL (0.11-0.59); Neutrophils % (auto) 74.1 %; Platelet Count 293 K/uL (130-400); RDW Coefficient of Variation 16.4 % (11.5-14.5); RDW Standard Deviation 55.7 fL (36.4-46.3); Red Blood Count 3.06 M/uL (4.7-6.1); White Blood Count 8.11 K/uL (4.8-10.8)
[2022-01-31 06:44] LABS: Albumin Level 2.9 gm/dl (3.4-5.0); BUN Creatinine Ratio 8.8 (10-20); Bilirubin Direct 0.2 mg/dl (0-0.2); Bilirubin,Total 0.9 mg/dl (0.2-1.0); Calcium 8.3 mg/dl (8.5-10.1); Creatinine Clr Calc Pharmacy 97.2 ml/min; Est GFR (African American) 112.9 ml/min; Est GFR (Non-African American) 97.4 ml/min; Potassium 3.4 mmol/L (3.5-5.1); Total Protein 5.5 gm/dl (6.0-8.3)
[2022-01-31] MEDS: DOXYCYCLINE HYCLATE 100 MG in DEXTROSE 5% 100 ML IV SCH ×2 (07:21→19:35)
[2022-01-31] MEDS ORDERED: ALBUTEROL HFA 8 GM INHALER INH ONE (08:09)
--- NOTE | 2022-01-31 08:09 | Hospitalist Progress Note ---
Date of Service January 31, 2022 Assessment & Plan (1) Confusion: Plan: Patient with underlying dementia - has poor memory, unable to recollect details of events prior to arrival or details of his recent surgery. Per son, issues with confusion in afternoon/evening, especially around 3;30pm. Takes Ativan 1mg in am as needed, 1/2 tablet in afternoon. this has been ordered prn in case of confusion/agitation and has only needed 2 0.5mg doses since admission CT head negative, Not hypoxic Confused, but pleasant. 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 * passed 2 months ago, living with son (step son, but per son, patient raised him) and patient continues to endorse he lives with his . Hx aspiration pneumonia and choked on supplemental potassium given on admission Speech eval -- swallow study. aspiration with 50% of thins. Dietary modification in place Lungs with rales/crackles RML, but also bibasilar --> on 3L O2 at home, uses mainly at night, not much during the day per son --> CXR with RML opacities and hx aspiration pna x 2 in 2016. Zosyn given in ER, transitioned to Unasyn WBC now wnl, remains Afebrile UA without infection. Ammonia low B12/folate without deficiency B1 pending, but placed on IV thiamine empirically BCx pending, NGTD Lyme checked, IgM positive . --> Continue on Doxycycline IV BID empirically and monitor WB (son reported prior hx tick bites, no hx Lyme or treatment). --> Consider switching to Ceftriaxone pending WB results given longstanding "dementia" reported Also checking CT R hip given recent ORIF and externally rotated, painful with movement, and to rule out any underlying malalignment/hematoma/infection PT/OT rec SNF. CM following, refs sent (2) Lyme disease: Plan: Son reports patient bit in past by multiple ticks but has never been tested for or treated for such in the past. added to labs given confusion. IgM positive started doxycycline empirically 01/30 Consider switching to Ceftriaxone pending WB (3) S/P right hip fracture: Plan: S/p right hip fracture with repair 14 days ago at [facility]. Details unavailable (records have been requested) Wound with [place] in place - does not appear to be infected. Uncertain why patient is on Xarelto - patient said he has had a blood clot before but is unable to say if it was in his leg or lung? Per son, Stuart, placed on Xarelto for DVT prevention following hip surgery, and he did give dad dose last evening prior to having EMS called He has been living with son since discharge, history of dementia, per son related to alcohol (confirmed and asked patient about drinking and he did endorse this despite confusion, and B12/folate on EMS medications list). Per son, patient has been pretty much bed bound, and unable to take care of/transfers as of lately. Wondered if possible UTI as well given he has gotten like this in the past. Ordered Xarelto as not ordered on admission PT/OT consulted -- recommend SNF CM following Sutures to be removed tomorrow Pain control with tylenol as needed --> asked RN to give dose this morning. Could schedule BID dosing if needed for baseline control Supportive care for now (4) Pulmonary infiltrate: Plan: Patient with infiltrates noted on CXR. He reports dry cough. No leukocytosis, negative Procalcitonin. Do not strongly suspect PNA. ?aspiration - nursing noted cough after PO medications. Patient with history of CVA, at risk for aspiration. -Dysphagia screening -Speech/Swallow evaluation -Aspiration precautions Got ZOsyn in ER 4.5mg, additional dose 01/29 and discussed with pharmacy low risk HAP (despite recent in hospital for ORIF as above) and de-escalated to Unasyn for now but if any worsening confusion/fever/WBC elevation would go back to Zosyn Blood cultures pending Sputum cx if able to produce, has not been able to expectorate COntinue incentive spirometer Monitor (5) Hypertension: Plan: Blood pressure presently well controlled On lisinopril at home, but holding for now while assessing PO intake -- improving but slightly dry mm on exam and would continue to hold for now, BP currently 104/46 Monitor (6) Dementia: Plan: Frequent orientation. Worsening since past 2 months ago as well (she from aspiration pneumonia/sepsis/ischemic bowel/kidney failure, apparently at is institution 2 months ago in the hospital. traumatic experience) Avoidance of delirium inducing agents but did add Ativan as needed instead of scheduled as takes at home and would want to prevent withdrawal TSH wnl, B12 not deficient B1 pending but placed on empiric and would continue at least daily supplementation at discharge (7) BPH w urinary obs/LUTS: Plan: Patient reports no difficulty with urination. Continue Flomax 0.4mg daily Erickson placed, UA without evidence for infection. Monitor/voiding trial prior to discharge. Had been having issues with incontinence prior UOP acceptable (8) Emphysema lung: Plan: Adequate oxygenation. No wheezing. Albuterol as needed, ordered -- ordered 1x dose now Supplemental O2 as needed - goal saturation 92% and currently such Monitor (9) : Plan: reported by son and usually well manageable with his baseline ativan, which has only been ordered prn given confusion to prevent worsening confusion (10) Hypokalemia: Plan: repleted prior days, low again today, mag wnl ordered replacement and will continue to monitor (11) CVA (cerebral vascular accident): Plan: Hx of CVA with R sided weakness per PCP note with episode of expressive aphasia April 2010 Also notes a history of polycythemia and regular phlebotomies? Hgb not elevated, no active bleeding noted Small hematoma to site of R hip ORIF but stable from day prior. Xray with stable placement but checking CT given continued issues with not being able to straighten out/pain with movement (12) Elevated LFTs: Plan: Elevated ALP, although recent ORIF and could be from bone RUQ obtained given elderly patient with confusioni and elevated ALP to r/o GB pathology RUQ with GB filled with gallstones, no convincing evidence for acute cholecystitis. No biliary ductal dilatation. Coarsening of hepatic echotexture and nodularity of the liver surface suggestive of cirrhosis (likely from history of alcohol use/abuse). Small R pleural effusion ALP still elevated. GI on consult. ?need for HIDA although reporting no abdominal pain (13) Cirrhosis: Plan: noted on RUQ US, obtained given confusion and TB 1.1 with elevated ALP on admission, likely 2nd to long standing alcohol use (although recent ALP could be from bone given recent fx, vit D wnl) recommend cessation moving forward of alcohol ammonia not elevated ALP up, but decreased from admission. GI consulted, re-consult if development of ascites but no issues with GB at this time Monitor Plan: continued inpatient stay Monitor WB for Lyme, consider switching to Ceftriaxone if needed No meningeal signs to suggest need for LP at this time will need SNF at discharge, but pablo Davidson ultimate goal after some rehab is to get patient home with him Admission and Anticipated Discharge Date Admission Date: January 30, 2022 Subjective Patient evaluated this morning. Resting in bed, covers down and stating feeling cold. Covered back up and stated feeling better. Still confused but pleasant. Erickson draining yellow urine. States he is in the hospital and he had recent hip fracture but unsure of date/time. States year is 2043. Month is November. No fever, chills, chest pain, shortness of breath reported. Although, does have faint inspiratory/expiratory wheezing. LLE with abductor pillow in bed but LLE externally rotated and patient does get agitated with movement of such. Will obtain CT for further evaluation of such/consult orthopedics if needed. Review of Systems Review of Systems: All systems reviewed & are unremarkable except as noted in HPI & below Physical Exam Physical Exam: General: WN/WD male sitting in bed,, uncovered, NAD HEENT: poor dentition, slightly dry mm, trachea midline, no deviation Resp: on room air, RML/RLL crackles/rales, faint inspiratory/expiratory wheezing, able to talk in complete sentences, spo2 92% CV: RRR, no murmur, rub, gallop, cap refill wnl GI: +BS, soft, non-tender, no guarding/rigidity : erickson draining yellow urine Psych: alert to person, not place/time/event, cooperative Neuro/MSK: speech slow at times, garbled, flexion contracture RUE/RLE with strength 2/5. LLE with stitches in place, surrounding ecchymosis, slightly t layne to palpation, externally rotated, adductor pillow in place but frequently removed, slight edema L calf compared to right, slightly warm, tender to palpation, increased pain reported with movement, no asterixis noted Results & Data Results & Data ([facility]) Vital Signs (Past 12 Hours) Vital Signs Temp Pulse Resp BP Pulse Ox 01/30/22 23:11 36.1 C L 77 18 140/69 92 Laboratory Results 01/31/22 01/31/22 01/30/22 Range/Units 05:58 05:58 18:01 WBC 8.11 (4.8-10.8) K/uL RBC 3.06 L (4.7-6.1) M/uL Hgb 9.4 L (14.0-18.0) g/dL Hct 28.6 L (42-52) % MCV 93.5 (80-100) fL MCH 30.7 (25-34) pg MCHC 32.9 (32-36) g/dL RDW Std Deviation 55.7 H (36.4-46.3) fL RDW Coeff of Brittney 16.4 H (11.5-14.5) % Plt Count 293 (130-400) K/uL MPV 10.2 (7.4-10.4) fL Immature Gran % (Auto) 0.2 % Neut % (Auto) 74.1 % Lymph % (Auto) 17.0 % [place] % (Auto) 6.0 % Eos % (Auto) 2.5 % Baso % (Auto) 0.2 % Neut # (Auto) 6.00 (1.4-6.5) K/uL Lymph # (Auto) 1.38 (1.2-3.4) K/uL [place] # (Auto) 0.49 (0.11-0.59) K/uL Eos # (Auto) 0.20 (0-0.5) K/uL Baso # (Auto) 0.02 (0-0.2) K/uL Immature Gran # (Auto) 0.02 (0.00-0.02) K/uL Sodium 142 (136-145) mmol/L Potassium 3.4 L (3.5-5.1) mmol/L Chloride 110 H (98-107) mmol/L Carbon Dioxide 26 (21-32) mmol/L Anion Gap 6 (3-11) BUN 6 (6-23) mg/dl Creatinine 0.68 (0.6-1.4) mg/dl Est Cr Clr Drug Dosing 97.2 ml/min Est GFR ( Amer) 112.9 ml/min Est GFR (Non-Af Amer) 97.4 ml/min BUN/Creatinine Ratio 8.8 L (10-20) Glucose 98 (70-99(Fasting)) mg/dl Calcium 8.3 L (8.5-10.1) mg/dl Total Bilirubin 0.9 (0.2-1.0) mg/dl Direct Bilirubin 0.2 (0-0.2) mg/dl AST 13 (13-39) U/L ALT 7 (7-52) U/L Alkaline Phosphatase 120 H (34-104) U/L Total Protein 5.5 L (6.0-8.3) gm/dl Albumin 2.9 L (3.4-5.0) gm/dl Anaplasma Smear See Comment Hepatitis A IgM Ab (NON-REACTIVE) Hep Bs Antigen (NON-REACTIVE) Hep Bs Ag Confirmation Hep B Core IgM Ab (NON-REACTIVE) Hepatitis C Ab (EIA) (NON-REACTIVE) Hep C Ab Signal/Cutoff (<1.00) 01/29/22 Range/Units 18:29 WBC (4.8-10.8) K/uL RBC (4.7-6.1) M/uL Hgb (14.0-18.0) g/dL Hct (42-52) % MCV (80-100) fL MCH (25-34) pg MCHC (32-36) g/dL RDW Std Deviation (36.4-46.3) fL RDW Coeff of Brittney (11.5-14.5) % Plt Count (130-400) K/uL MPV (7.4-10.4) fL Immature Gran % (Auto) % Neut % (Auto) % Lymph % (Auto) % [place] % (Auto) % Eos % (Auto) % Baso % (Auto) % Neut # (Auto) (1.4-6.5) K/uL Lymph # (Auto) (1.2-3.4) K/uL [place] # (Auto) (0.11-0.59) K/uL Eos # (Auto) (0-0.5) K/uL Baso # (Auto) (0-0.2) K/uL Immature Gran # (Auto) (0.00-0.02) K/uL Sodium (136-145) mmol/L Potassium (3.5-5.1) mmol/L Chloride (98-107) mmol/L Carbon Dioxide (21-32) mmol/L Anion Gap (3-11) BUN (6-23) mg/dl Creatinine (0.6-1.4) mg/dl Est Cr Clr Drug Dosing ml/min Est GFR ( Amer) ml/min Est GFR (Non-Af Amer) ml/min BUN/Creatinine Ratio (10-20) Glucose (70-99(Fasting)) mg/dl Calcium (8.5-10.1) mg/dl Total Bilirubin (0.2-1.0) mg/dl Direct Bilirubin (0-0.2) mg/dl AST (13-39) U/L ALT (7-52) U/L Alkaline Phosphatase (34-104) U/L Total Protein (6.0-8.3) gm/dl Albumin (3.4-5.0) gm/dl Anaplasma Smear Hepatitis A IgM Ab NON-REACTIVE (NON-REACTIVE) Hep Bs Antigen NON-REACTIVE (NON-REACTIVE) Hep Bs Ag Confirmation TNP Hep B Core IgM Ab NON-REACTIVE (NON-REACTIVE) Hepatitis C Ab (EIA) NON-REACTIVE (NON-REACTIVE) Hep C Ab Signal/Cutoff 0.04 (<1.00) PG Care Time/CCT Total # of Minutes Spent Total Time Spent with Patient: Total time spent is greater than 50% in coordination of care (as documented) at patient's floor/unit and/or counseling patient: Coding Level of Care Code 22703 Subseq Hosp Care Lvl 3 Diagnoses Confusion R41.0 Lyme disease A69.20 S/P right hip fracture Z87.81 Cirrhosis K74.60 Pulmonary infiltrate R91.8 Hypertension I10 Dementia F03.90 BPH w urinary obs/LUTS N40.1; N13.8 Emphysema lung J43.9 Sundowning F05 Hypokalemia E87.6 CVA (cerebral vascular accident) I63.9 Elevated LFTs R79.89
[2022-01-31] MEDS ORDERED: POTASSIUM CHLORIDE PWD 20 MEQ PACK PO ONE (08:30)
[2022-01-31] MEDS: DOCUSATE SODIUM/SENNA 50/8.6MG TAB PO SCH (08:58)
[2022-01-31] MEDS: FOLIC ACID 400 MCG TAB PO SCH (08:58)
[2022-01-31] MEDS: FAMOTIDINE 20 MG in SYRINGE 3 ML IV SCH (09:36)
[2022-01-31] MEDS: THIAMINE HCL 200 MG in SODIUM CHLORIDE 0.9% 50 ML IV SCH ×2 (09:37→19:35)
[2022-01-31] MEDS: ACETAMINOPHEN 325 MG TAB PO PRN (09:41)
[2022-01-31] MEDS ORDERED: MAGNESIUM SULFATE / D5W 1 GM/100 ML BAG IV ONE (10:00)
--- NOTE | 2022-01-31 10:48 | XRay Report ---
XR chest 2V PA/lateral CLINICAL HISTORY: follow up aspiration pneumonia, RML opacities COMPARISON STUDY: Chest radiograph January 28, 2022. FINDINGS: Postoperative findings within the spine are incidentally noted. There is no pneumothorax or pleural effusion. Interstitial thickening has developed. Persistent opacity within the medial right lung base is either unchanged or slightly improved since prior exam. No additional sites of consolida tion are present. IMPRESSION: 1. Opacity within the medial right lung base which may reflect an infectious process/aspiration pneum onitis. This is either unchanged or slightly improved since prior study. Continued radiographic follo w up to ensure resolution is recommended. 2. Interval development of interstitial thickening. This may reflect mild pulmonary edema. ACT 112: Negative or not required by law. Electronically signed by: Roosevelt Trammell M.D. 01/31/2022 10:46 AM
--- NOTE | 2022-01-31 11:00 | XRay Report ---
XR hip RT 2V w pelvis CLINICAL HISTORY: recent ORIF. Right hip pain. COMPARISON: Pelvis and right hip radiographs January 28, 2022. FINDINGS: Incidental note is made of contrast within the colon and rectum from recent video swallow. No acute fracture within the pelvis or left hip is identified. There are stable findings following r ecent internal fixation of the intertrochanteric fracture of the right femur with intramedullary magdalena and interlocking femoral neck pin. Postoperative appearance is unchanged since radiograph January 28 022. Hardware is intact. Extensive vascular calcification is incidentally noted. IMPRESSION: Stable postoperative findings following recent internal fixation of the intertrochanteric fracture of the right femur with intramedullary magdalena and interlocking femoral neck pain. ACT 112: Negative or not required by law. Electronically signed by: Roosevelt Trammell M.D. 01/31/2022 10:58 AM
[2022-01-31] MEDS ORDERED: OPTIRAY 320 100ml IV ONE (11:22)
[2022-01-31] MEDS ORDERED: Nursing to Pharmacy Communication SCH (11:30)
[2022-01-31] MEDS: FLUTICASONE/VILANTEROL 100/25MCG 14 PUFFS/INHALER INH SCH (11:38)
--- NOTE | 2022-01-31 11:46 | CT Scan Report ---
CT OF THE RIGHT HIP WITH CONTRAST CLINICAL HISTORY: recent ORIF, confusion, ?infection vs malalignment COMPARISON STUDY: Right hip radiographs January 31, 2022. TECHNIQUE: Axial images of the right hip and right femur the level of the distal diaphysis were obtai bin following intravenous injection of 94 cc of Optiray 320 IV. Sagittal and coronal reconstructions were viewed. Automated exposure control was utilized for the study. A dose lowering technique was ut ilized adhering to the principles of ALARA. FINDINGS: Gas and a Camargo balloon within the bladder are noted. No significant abnormality is identif ied within visualized portions of the pelvis. There is extensive vascular calcification. Note is made of postoperative findings consistent with recent internal fixation of the intertrochanteric fracture of the right femur with intramedullary magdalena and interlocking femoral neck pin. The hardware is intact . Fracture lines remain evident. Adjacent hyperdense material within the operative bed is not unexpec brittani. No additional fractures are identified. A suspected tiny 1.8 cm fluid collection within the righ t gluteal musculature is noted. This is also not secondary early postoperative setting. There is a sm all amount of fluid adjacent to the greater trochanter. No drainable fluid collection is present. The re is no CT evidence for acute osteomyelitis. IMPRESSION: Expected postoperative findings following recent internal fixation of the intertrochanter ic fracture of the right femur with intramedullary magdalena and interlocking femoral neck pain. Hardware i ntact. Tiny right gluteal musculature operative bed fluid collection and a small amount of fluid with in the operative bed are not unexpected in the early postoperative setting. ACT 112: Negative or not required by law. Electronically signed by: Roosevelt Trammell M.D. 01/31/2022 11:44 AM
[2022-01-31] MEDS: lisinopril 2.5 MG TAB PO SCH (14:23)
[2022-01-31] MEDS: RIVAROXABAN 10 MG TABLET PO SCH (19:35)
[2022-02-01] MEDS: AMPICILLIN/SULBACTAM SOD 3,000 MG in 0.9 % SODIUM CHLORIDE 100 ML IV SCH ×3 (05:36→17:16)
[2022-02-01] MEDS: FOLIC ACID 400 MCG TAB PO SCH (08:46)
[2022-02-01] MEDS: DOXYCYCLINE HYCLATE 100 MG in DEXTROSE 5% 100 ML IV SCH ×2 (08:46→21:45)
[2022-02-01] MEDS: lisinopril 2.5 MG TAB PO SCH (08:46)
[2022-02-01] MEDS: DOCUSATE SODIUM/SENNA 50/8.6MG TAB PO SCH (08:46)
[2022-02-01] MEDS: FLUTICASONE/VILANTEROL 100/25MCG 14 PUFFS/INHALER INH SCH (08:47)
[2022-02-01] MEDS: FAMOTIDINE 20 MG TAB PO SCH (08:49)
[2022-02-01] MEDS: THIAMINE HCL 200 MG in SODIUM CHLORIDE 0.9% 50 ML IV SCH (08:50)
[2022-02-01] MEDS: ACETAMINOPHEN 325 MG TAB PO PRN (08:50)
--- NOTE | 2022-02-01 20:40 | Hospitalist Progress Note ---
Date of Service February 01, 2022 Assessment & Plan (1) Confusion: Plan: Patient with underlying dementia - has poor memory, unable to recollect details of events prior to arrival or details of his recent surgery. Per son, issues with confusion in afternoon/evening, especially around 3;30pm. Takes Ativan 1mg in am as needed, 1/2 tablet in afternoon. this has been ordered prn in case of confusion/agitation and has only needed 2 0.5mg doses since admission CT head negative, Not hypoxic Confused, but pleasant. 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 * passed 2 months ago, living with son (step son, but per son, patient raised him) and patient continues to endorse he lives with his . Hx aspiration pneumonia and choked on supplemental potassium given on admission Speech eval -- swallow study. aspiration with 50% of thins. Dietary modification in place Lungs with rales/crackles RML, but also bibasilar --> on 3L O2 at home, uses mainly at night, not much during the day per son --> CXR with RML opacities and hx aspiration pna x 2 in 2016. Zosyn given in ER, transitioned to Unasyn WBC now wnl, remains Afebrile UA without infection. Ammonia low B12/folate without deficiency B1 pending, but placed on IV thiamine empirically BCx pending, NGTD Lyme checked, IgM positive . --> Continue on Doxycycline IV BID empirically and monitor WB (son reported prior hx tick bites, no hx Lyme or treatment). --> Consider switching to Ceftriaxone pending WB results given longstanding "dementia" reported Also checking CT R hip given recent ORIF and externally rotated, painful with movement, and to rule out any underlying malalignment/hematoma/infection PT/OT rec SNF. CM following, refs sent (2) Lyme disease: Plan: Son reports patient bit in past by multiple ticks but has never been tested for or treated for such in the past. added to labs given confusion. IgM positive started doxycycline empirically 01/30 Consider switching to Ceftriaxone pending WB (3) S/P right hip fracture: Plan: S/p right hip fracture with repair 14 days ago at [facility]. Details unavailable (records have been requested) Wound with dallas in place - does not appear to be infected. Uncertain why patient is on Xarelto - patient said he has had a blood clot before but is unable to say if it was in his leg or lung? Per son, Stuart, placed on Xarelto for DVT prevention following hip surgery, and he did give dad dose last evening prior to having EMS called He has been living with son since discharge, history of dementia, per son related to alcohol (confirmed and asked patient about drinking and he did endorse this despite confusion, and B12/folate on EMS medications list). Per son, patient has been pretty much bed bound, and unable to take care of/transfers as of lately. Wondered if possible UTI as well given he has gotten like this in the past. Ordered Xarelto as not ordered on admission PT/OT consulted -- recommend SNF CM following Sutures to be removed tomorrow Pain control with tylenol as needed --> asked RN to give dose this morning. Could schedule BID dosing if needed for baseline control Supportive care for now (4) Pulmonary infiltrate: Plan: Patient with infiltrates noted on CXR. He reports dry cough. No leukocytosis, negative Procalcitonin. Do not strongly suspect PNA. ?aspiration - nursing noted cough after PO medications. Patient with history of CVA, at risk for aspiration. -Dysphagia screening -Speech/Swallow evaluation -Aspiration precautions Got ZOsyn in ER 4.5mg, additional dose 01/29 and discussed with pharmacy low risk HAP (despite recent in hospital for ORIF as above) and de-escalated to Unasyn for now but if any worsening confusion/fever/WBC elevation would go back to Zosyn Blood cultures pending Sputum cx if able to produce, has not been able to expectorate COntinue incentive spirometer Monitor (5) Hypertension: Plan: Blood pressure presently well controlled On lisinopril at home, but holding for now while assessing PO intake -- improving but slightly dry mm on exam and would continue to hold for now, BP currently 104/46 Monitor (6) Dementia: Plan: Frequent orientation. Worsening since past 2 months ago as well (she from aspiration pneumonia/sepsis/ischemic bowel/kidney failure, apparently at is institution 2 months ago in the hospital. traumatic experience) Avoidance of delirium inducing agents but did add Ativan as needed instead of scheduled as takes at home and would want to prevent withdrawal TSH wnl, B12 not deficient B1 pending but placed on empiric and would continue at least daily supplementation at discharge (7) BPH w urinary obs/LUTS: Plan: Patient reports no difficulty with urination. Continue Flomax 0.4mg daily Erickson placed, UA without evidence for infection. Monitor/voiding trial prior to discharge. Had been having issues with incontinence prior UOP acceptable (8) Emphysema lung: Plan: Adequate oxygenation. No wheezing. Albuterol as needed, ordered -- ordered 1x dose now Supplemental O2 as needed - goal saturation 92% and currently such Monitor (9) : Plan: reported by son and usually well manageable with his baseline ativan, which has only been ordered prn given confusion to prevent worsening confusion (10) Hypokalemia: Plan: repleted prior days, low again today, mag wnl ordered replacement and will continue to monitor (11) CVA (cerebral vascular accident): Plan: Hx of CVA with R sided weakness per PCP note with episode of expressive aphasia April 2010 Also notes a history of polycythemia and regular phlebotomies? Hgb not elevated, no active bleeding noted Small hematoma to site of R hip ORIF but stable from day prior. Xray with stable placement but checking CT given continued issues with not being able to straighten out/pain with movement (12) Elevated LFTs: Plan: Elevated ALP, although recent ORIF and could be from bone RUQ obtained given elderly patient with confusioni and elevated ALP to r/o GB pathology RUQ with GB filled with gallstones, no convincing evidence for acute cholecystitis. No biliary ductal dilatation. Coarsening of hepatic echotexture and nodularity of the liver surface suggestive of cirrhosis (likely from history of alcohol use/abuse). Small R pleural effusion ALP still elevated. GI on consult. ?need for HIDA although reporting no abdominal pain (13) Cirrhosis: Plan: noted on RUQ US, obtained given confusion and TB 1.1 with elevated ALP on admission, likely 2nd to long standing alcohol use (although recent ALP could be from bone given recent fx, vit D wnl) recommend cessation moving forward of alcohol ammonia not elevated ALP up, but decreased from admission. GI consulted, re-consult if development of ascites but no issues with GB at this time Monitor Plan: continued inpatient stay Monitor WB for Lyme, consider switching to Ceftriaxone if needed No meningeal signs to suggest need for LP at this time will need SNF at discharge, but pablo Davidson ultimate goal after some rehab is to get patient home with him Admission and Anticipated Discharge Date Admission Date: January 30, 2022 Subjective Patient pleasantly confused. No new complaints. Review of Systems Review of Systems: Unobtainable due to cognitive status Physical Exam Physical Exam: General: WN/WD male sitting in bed,, uncovered, NAD HEENT: poor dentition, slightly dry mm, trachea midline, no deviation Resp: on room air, RML/RLL crackles/rales, faint inspiratory/expiratory wheezing, able to talk in complete sentences, spo2 92% CV: RRR, no murmur, rub, gallop, cap refill wnl GI: +BS, soft, non-tender, no guarding/rigidity : erickson draining yellow urine Psych: alert to person, not place/time/event, cooperative Neuro/MSK: speech slow at times, garbled, flexion contracture RUE/RLE with strength 2/5. LLE with stitches in place, surrounding ecchymosis, slightly tender to palpation, externally rotated, adductor pillow in place but frequently removed, slight edema L calf compared to right, slightly warm, tender to palpation, increased pain reported with movement, no asterixis noted Results & Data Results & [facility] ([facility]) Vital Signs (Past 12 Hours) Vital Signs Temp Pulse Resp BP Pulse Ox 02/01/22 15:24 36.6 C 66 16 168/68 H 93 PG Care Time/CCT Total # of Minutes Spent Total Time Spent with Patient: Total time spent is greater than 50% in coordination of care (as documented) at patient's floor/unit and/or counseling patient: Coding Level of Care Code 98998 Subseq Hosp Care Lvl 1 Diagnoses Confusion R41.0 Lyme disease A69.20 S/P right hip fracture Z87.81 Pulmonary infiltrate R91.8 Hypertension I10 Dementia F03.90 BPH w urinary obs/LUTS N40.1; N13.8 Emphysema lung J43.9 Sundowning F05 Hypokalemia E87.6 CVA (cerebral vascular accident) I63.9 Elevated LFTs R79.89 Cirrhosis K74.60
[2022-02-01] MEDS: RIVAROXABAN 10 MG TABLET PO SCH (21:48)
[2022-02-02] MEDS: THIAMINE HCL 200 MG in SODIUM CHLORIDE 0.9% 50 ML IV SCH ×3 (00:12→21:05)
[2022-02-02] MEDS: AMPICILLIN/SULBACTAM SOD 3,000 MG in 0.9 % SODIUM CHLORIDE 100 ML IV SCH ×4 (00:22→17:30)
[2022-02-02 02:02] LABS: 18KDIGG Band NON-REACTIVE; 23KDIGG Band NON-REACTIVE; 23KDIGM Band REACTIVE; 28KDIGG Band NON-REACTIVE; 30KDIGG Band NON-REACTIVE; 39KDIGG Band NON-REACTIVE; 39KDIGM Band NON-REACTIVE; 41KDIGG Band NON-REACTIVE; 41KDIGM Band NON-REACTIVE; 45KDIGG Band NON-REACTIVE; 58KDIGG Band NON-REACTIVE; 66KDIGG Band NON-REACTIVE; 93KDIGG Band NON-REACTIVE; Lyme Antibodies, WB IgG NEGATIVE (NEGATIVE); Lyme Antibodies, WB IgM NEGATIVE (NEGATIVE)
[2022-02-02] MEDS: FOLIC ACID 400 MCG TAB PO SCH (08:07)
[2022-02-02] MEDS: FLUTICASONE/VILANTEROL 100/25MCG 14 PUFFS/INHALER INH SCH (08:07)
[2022-02-02] MEDS: DOCUSATE SODIUM/SENNA 50/8.6MG TAB PO SCH (08:07)
[2022-02-02] MEDS: FAMOTIDINE 20 MG TAB PO SCH (08:07)
[2022-02-02] MEDS: DOXYCYCLINE HYCLATE 100 MG in DEXTROSE 5% 100 ML IV SCH ×2 (08:42→21:04)
[2022-02-02] MEDS: lisinopril 2.5 MG TAB PO SCH (12:17)
[2022-02-02] MEDS: ACETAMINOPHEN 325 MG TAB PO PRN (17:30)
[2022-02-02] MEDS: RIVAROXABAN 10 MG TABLET PO SCH (21:04)
--- NOTE | 2022-02-02 21:57 | Hospitalist Progress Note ---
Date of Service February 02, 2022 Assessment & Plan (1) Confusion: Plan: Patient with underlying dementia - has poor memory, unable to recollect details of events prior to arrival or details of his recent surgery. Per son, issues with confusion in afternoon/evening, especially around 3;30pm. Takes Ativan 1mg in am as needed, 1/2 tablet in afternoon. this has been ordered prn in case of confusion/agitation and has only needed 2 0.5mg doses since admission CT head negative, Not hypoxic Confused, but pleasant. 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 * passed 2 months ago, living with son (step son, but per son, patient raised him) and patient continues to endorse he lives with his . Hx aspiration pneumonia and choked on supplemental potassium given on admission Speech eval -- swallow study. aspiration with 50% of thins. Dietary modification in place Lungs with rales/crackles RML, but also bibasilar --> on 3L O2 at home, uses mainly at night, not much during the day per son --> CXR with RML opacities and hx aspiration pna x 2 in 2016. Zosyn given in ER, transitioned to Unasyn WBC now wnl, remains Afebrile UA without infection. Ammonia low B12/folate without deficiency B1 pending, but placed on IV thiamine empirically BCx pending, NGTD Lyme checked, IgM positive . --> was treated on Doxycycline IV BID empirically WB negative. (son reported prior hx tick bites, no hx Lyme or treatment). Also checking CT R hip given recent ORIF and externally rotated, painful with movement, and to rule out any underlying malalignment/hematoma/infection PT/OT rec SNF. CM following, refs sent Negative western blot for lyme. will stop doxycycline. (2) Lyme disease: Plan: Son reports patient bit in past by multiple ticks but has never been tested for or treated for such in the past. added to labs given confusion. IgM positive started doxycycline empirically 01/30 Consider switching to Ceftriaxone pending WB (3) S/P right hip fracture: Plan: S/p right hip fracture with repair 14 days ago at [facility]. Details unavailable (records have been requested) Wound with dallas in place - does not appear to be infected. Uncertain why patient is on Xarelto - patient said he has had a blood clot before but is unable to say if it was in his leg or lung? Per son, Stuart, placed on Xarelto for DVT prevention following hip surgery, and he did give dad dose last evening prior to having EMS called He has been living with son since discharge, history of dementia, per son related to alcohol (confirmed and asked patient about drinking and he did endorse this despite confusion, and B12/folate on EMS medications list). Per son, patient has been pretty much bed bound, and unable to take care of/transfers as of lately. Wondered if possible UTI as well given he has gotten like this in the past. Ordered Xarelto as not ordered on admission PT/OT consulted -- recommend SNF CM following Sutures to be removed tomorrow Pain control with tylenol as needed --> asked RN to give dose this morning. Could schedule BID dosing if needed for baseline control Supportive care for now (4) Pulmonary infiltrate: Plan: Patient with infiltrates noted on CXR. He reports dry cough. No leukocytosis, negative Procalcitonin. Do not strongly suspect PNA. ?aspiration - nursing noted cough after PO medications. Patient with history of CVA, at risk for aspiration. -Dysphagia screening -Speech/Swallow evaluation -Aspiration precautions Got ZOsyn in ER 4.5mg, additional dose 01/29 and discussed with pharmacy low risk HAP (despite recent in hospital for ORIF as above) and de-escalated to Unasyn for now but if any worsening confusion/fever/WBC elevation would go back to Zosyn Blood cultures pending Sputum cx if able to produce, has not been able to expectorate COntinue incentive spirometer Monitor (5) Hypertension: Plan: Blood pressure presently well controlled On lisinopril at home, but holding for now while assessing PO intake -- improving but slightly dry mm on exam and would continue to hold for now, BP currently 104/46 Monitor (6) Dementia: Plan: Frequent orientation. Worsening since past 2 months ago as well (she from aspiration pneumonia/sepsis/ischemic bowel/kidney failure, apparently at this institution 2 months ago in the hospital. traumatic experience) Avoidance of delirium inducing agents but did add Ativan as needed instead of scheduled as takes at home and would want to prevent withdrawal TSH wnl, B12 not deficient (7) BPH w urinary obs/LUTS: Plan: Patient reports no difficulty with urination. Continue Flomax 0.4mg daily Erickson placed, UA without evidence for infection. Monitor/voiding trial prior to discharge. Had been having issues with incontinence prior UOP acceptable (8) Emphysema lung: Plan: Adequate oxygenation. No wheezing. Albuterol as needed, ordered -- ordered 1x dose now Supplemental O2 as needed - goal saturation 92% and currently such Monitor (9) own: Plan: reported by son and usually well manageable with his baseline ativan, which has only been ordered prn given confusion to prevent worsening confusion (10) Hypokalemia: Plan: repleted prior days, low again today, mag wnl ordered replacement and will continue to monitor (11) CVA (cerebral vascular accident): Plan: Hx of CVA with R sided weakness per PCP note with episode of expressive aphasia April 2010 Also notes a history of polycythemia and regular phlebotomies? Hgb not elevated, no active bleeding noted Small hematoma to site of R hip ORIF but stable from day prior. Xray with stable placement but checking CT given continued issues with not being able to straighten out/pain with movement (12) Elevated LFTs: Plan: Elevated ALP, although recent ORIF and could be from bone RUQ obtained given elderly patient with confusioni and elevated ALP to r/o GB pathology RUQ with GB filled with gallstones, no convincing evidence for acute cholecystitis. No biliary ductal dilatation. Coarsening of hepatic echotexture and nodularity of the liver surface suggestive of cirrhosis (likely from history of alcohol use/abuse). Small R pleural effusion ALP still elevated. GI on consult. ?need for HIDA although reporting no abdominal pain (13) Cirrhosis: Plan: noted on RUQ US, obtained given confusion and TB 1.1 with elevated ALP on admission, likely 2nd to long standing alcohol use (although recent ALP could be from bone given recent fx, vit D wnl) recommend cessation moving forward of alcohol ammonia not elevated ALP up, but decreased from admission. GI consulted, re-consult if development of ascites but no issues with GB at this time Monitor Plan: continued inpatient stay Monitor WB for Lyme, consider switching to Ceftriaxone if needed No meningeal signs to suggest need for LP at this time will need SNF at discharge, but pablo Davidson ultimate goal after some rehab is to get patient home with him Admission and Anticipated Discharge Date Admission Date: January 30, 2022 Subjective Patient reports no new symptoms. Review of Systems Review of Systems: All systems reviewed & are unremarkable except as noted in HPI & below Physical Exam Physical Exam: General: WN/WD male sitting in bed, NAD HEENT: trachea midline, no deviation Resp: on room air, able to talk in complete sentences, spo2 92% CV: RRR, no murmur, rub, gallop, cap refill wnl GI: +BS, soft, non-tender, no guarding/rigidity : erickson draining yellow urine Psych: alert to person, not place/time/event, cooperative Neuro/MSK: speech slow at times, garbled, flexion contracture RUE/RLE with strength 2/5. LLE with stitches in place, surrounding ecchymosis, slightly tender to palpation, externally rotated, adductor pillow in place but frequently removed, slight edema L calf compared to right, slightly warm, tender to palpation, increased pain reported with movement, no asterixis noted Results & Data Results & Data ([facility]) Vital Signs (Past 12 Hours) Vital Signs Temp Pulse Resp BP Pulse Ox 02/02/22 15:25 37 C 61 16 161/66 H 95 PG Care Time/CCT Total # of Minutes Spent Total Time Spent with Patient: Total time spent is greater than 50% in coordination of care (as documented) at patient's floor/unit and/or counseling patient: Coding Level of Care Code 11003 Subseq Hosp Care Lvl 2 Diagnoses Confusion R41.0 Lyme disease A69.20 S/P right hip fracture Z87.81 Pulmonary infiltrate R91.8 Hypertension I10 Dementia F03.90 BPH w urinary obs/LUTS N40.1; N13.8 Emphysema lung J43.9 Sundowning F05 Hypokalemia E87.6 CVA (cerebral vascular accident) I63.9 Elevated LFTs R79.89 Cirrhosis K74.60
[2022-02-03] MEDS: AMPICILLIN/SULBACTAM SOD 3,000 MG in 0.9 % SODIUM CHLORIDE 100 ML IV SCH ×2 (00:47→05:51)
[2022-02-03] MEDS: THIAMINE HCL 200 MG in SODIUM CHLORIDE 0.9% 50 ML IV SCH (07:50)
[2022-02-03] MEDS: FOLIC ACID 400 MCG TAB PO SCH (07:52)
[2022-02-03] MEDS: lisinopril 2.5 MG TAB PO SCH (07:53)
[2022-02-03] MEDS: FAMOTIDINE 20 MG TAB PO SCH (07:53)
[2022-02-03] MEDS: DOCUSATE SODIUM/SENNA 50/8.6MG TAB PO SCH (07:53)
[2022-02-03] MEDS: FLUTICASONE/VILANTEROL 100/25MCG 14 PUFFS/INHALER INH SCH (07:53)
--- NOTE | 2022-02-03 08:37 | Hospitalist Progress Note ---
Date of Service February 03, 2022 Assessment & Plan (1) Confusion: Plan: Patient with underlying dementia - has poor memory, unable to recollect details of events prior to arrival or details of his recent surgery. Per son, issues with confusion in afternoon/evening, especially around 3;30pm. Takes Ativan 1mg in am as needed, 1/2 tablet in afternoon. This has been ordered prn in case of confusion/agitation and has only needed 2 0.5mg doses since admission May benefit from limiting ativan as this may actually worsen his confusion. He has not required a dose since 01/31 will consider replacing zyprexa for confusion if needed/ haldol while in the hos pital. CT head negative, Not hypoxic Confused, but pleasant. 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 * passed 2 months ago, living with son (step son, but per son, patient raised him) and patient continues to endorse he lives with his . Hx aspiration pneumonia and choked on supplemental potassium given on admission Speech eval -- swallow study. aspiration with 50% of thins. Dietary modification in place Lungs with rales/crackles RML, but also bibasilar --> on 3L O2 at home, uses mainly at night, not much during the day per son --> CXR with RML opacities and hx aspiration pna x 2 in 2016. Zosyn given in ER, transitioned to Unasyn, will finish (5.5 day) course on augmentin. Last dose AM on 02/04 WBC now wnl, remains Afebrile UA without infection. Ammonia low B12/folate without deficiency Lyme checked, IgM positive . --> was treated on Doxycycline IV BID empirically Doxycycline stopped as WB negative.(son reported prior hx tick bites, no hx Lyme or treatment). Also checking CT R hip given recent ORIF and externally rotated, painful with movement, and to rule out any underlying malalignment/hematoma/infection PT/OT rec SNF. CM following, refs sent (2) Lyme disease: Plan: Son reports patient bit in past by multiple ticks but has never been tested for or treated for such in the past. ruled out with negative western blot Confusion likely stemming from dementia and delirium. Patient is calm right now. (3) S/P right hip fracture: Plan: S/p right hip fracture with repair 14 days ago at [facility]. Details unavailable (records have been requested) Wound with d[place] in place - does not appear to be infected. Uncertain why patient is on Xarelto - patient said he has had a blood clot before but is unable to say if it was in his leg or lung? Per son, Stuart, placed on Xarelto for DVT prevention following hip surgery, and he did give dad dose last evening prior to having EMS called He has been living with son since discharge, history of dementia, per son rel ated to alcohol (confirmed and asked patient about drinking and he did endorse this despite confusion, and B12/folate on EMS medications list). Per son, patient has been pretty much bed bound, and unable to take care of/transfers as of lately. Wondered if possible UTI as well given he has gotten like this in the past. Ordered Xarelto as not ordered on admission PT/OT consulted -- recommend SNF CM following [place] removed 02/03. Pain control with tylenol as needed --> asked RN to give dose this morning. Could schedule BID dosing if needed for baseline control Supportive care for now (4) Pulmonary infiltrate: Plan: Patient with infiltrates noted on CXR. He reports dry cough. No leukocytosis, negative Procalcitonin. Do not strongly suspect PNA. ?aspiration - nursing noted cough after PO medications. Patient with history of CVA, at risk for aspiration. -Dysphagia screening -Speech/Swallow evaluation -Aspiration precautions Got ZOsyn in ER 4.5mg, additional dose 01/29 and discussed with pharmacy low risk HAP (despite recent in hospital for ORIF as above) and de-escalated to Unasyn for now but if any worsening confusion/fever/WBC elevation would go back to Zosyn Blood cultures pending Sputum cx if able to produce, has not been able to expectorate COntinue incentive spirometer Monitor (5) Hypertension: Plan: Blood pressure presently well controlled On lisinopril at home, but holding for now while assessing PO intake -- improving but slightly dry mm on exam and would continue to hold for now, BP currently 104/46 Monitor (6) Dementia: Plan: Frequent orientation. Worsening since past 2 months ago as well (she from aspiration pneumonia/sepsis/ischemic bowel/kidney failure, apparently at this institution 2 months ago in the hospital. traumatic experience) Avoidance of delirium inducing agents but did add Ativan as needed instead of scheduled as takes at home and would want to prevent withdrawal TSH wnl, B12 not deficient (7) BPH w urinary obs/LUTS: Plan: Patient reports no difficulty with urination. Continue Flomax 0.4mg daily Erickson placed, UA without evidence for infection. Monitor/voiding trial prior to discharge. Had been having issues with incontinence prior UOP acceptable (8) Emphysema lung: Plan: Stable at baseline. Adequate oxygenation. No wheezing. Albuterol as needed, ordered -- ordered 1x dose now Supplemental O2 as needed - goal saturation 92% and currently such (9) : Plan: reported by son and usually well manageable with his baseline ativan, which has only been ordered prn given confusion to prevent worsening confusion (10) Hypokalemia: Plan: repleted prior days, low again today, mag wnl ordered replacement and will continue to monitor (11) CVA (cerebral vascular accident): Plan: Hx of CVA with R sided weakness per PCP note with episode of expressive aphasia April 2010 Also notes a history of polycythemia and regular phlebotomies? Hgb not elevated, no active bleeding noted Small hematoma to site of R hip ORIF but stable from day prior. Xray with stable placement but checking CT given continued issues with not being able to straighten out/pain with movement (12) Elevated LFTs: Plan: Elevated ALP, although recent ORIF and could be from bone RUQ obtained given elderly patient with confusioni and elevated ALP to r/o GB pathology RUQ with GB filled with gallstones, no convincing evidence for acute cholecystitis. No biliary ductal dilatation. Coarsening of hepatic echotexture and nodularity of the liver surface suggestive of cirrhosis (likely from history of alcohol use/abuse). Small R pleural effusion ALP still elevated. GI on consult. ?need for HIDA although reporting no abdominal pain (13) Cirrhosis: Plan: noted on RUQ US, obtained given confusion and TB 1.1 with elevated ALP on admission, likely 2nd to long standing alcohol use (although recent ALP could be from bone given recent fx, vit D wnl) recommend cessation moving forward of alcohol ammonia not elevated ALP up, but decreased from admission. GI consulted, re-consult if development of ascites but no issues with GB at this time Monitor Plan: Discharge on 02/04 to SNF. Admission and Anticipated Discharge Date Admission Date: January 30, 2022 Subjective 71 yo male reports no new symptoms today. D/W nurse, will remove [place]. Review of Systems Review of Systems: All systems reviewed & are unremarkable except as noted in HPI & below Physical Exam Physical Exam: General: WN/WD male sitting in bed, NAD HEENT: trachea midline, no deviation Resp: on room air, able to talk in complete sentences, spo2 92% CV: RRR, no murmur, rub, gallop, cap refill wnl GI: +BS, soft, non-tender, no guarding/rigidity : erickson draining yellow urine Psych: alert to person, not place/time/event, cooperative Neuro/MSK: speech slow at times, garbled, flexion contracture RUE/RLE with strength 2/5. LLE with stitches in place, surrounding ecchymosis, slightly tender to palpation, externally rotated, adductor pillow in place but frequently removed, slight edema L calf compared to right, slightly warm, tender to palpation, increased pain reported with movement, no asterixis noted Results & Data Results & Data ([facility]) Vital Signs (Past 12 Hours) Vital Signs Temp Pulse Resp BP BP Pulse Ox 02/03/22 07:38 36.8 C 54 L 16 150/70 H 90 02/02/22 23:14 37.0 C 75 18 144/80 H 94 PG Care Time/CCT Total # of Minutes Spent Total Time Spent with Patient: Total time spent is greater than 50% in coordination of care (as documented) at patient's floor/unit and/or counseling patient: Coding Level of Care Code 61712 Subseq Hosp Care Lvl 3 Diagnoses Confusion R41.0 Lyme disease A69.20 S/P right hip fracture Z87.81 Pulmonary infiltrate R91.8 Hypertension I10 Dementia F03.90 BPH w urinary obs/LUTS N40.1; N13.8 Emphysema lung J43.9 Sundowning F05 Hypokalemia E87.6 CVA (cerebral vascular accident) I63.9 Elevated LFTs R79.89 Cirrhosis K74.60
[2022-02-03] MEDS: AMOXICILLIN/CLAVULANATE 875 MG TAB PO SCH ×2 (10:13→17:56)
[2022-02-03] MEDS: RIVAROXABAN 10 MG TABLET PO SCH (20:41)
[2022-02-04 08:03] LABS: Hematocrit (blood only) 35.2 % (42-52); Hemoglobin 11.4 g/dL (14.0-18.0); Mean Corpuscular Hemoglobin 30.3 pg (25-34); Mean Corpuscular Hgb Conc 32.4 g/dL (32-36); Mean Corpuscular Volume 93.6 fL (80-100); Mean Platelet Volume 10.4 fL (7.4-10.4); Platelet Count 300 K/uL (130-400); RDW Coefficient of Variation 16.5 % (11.5-14.5); RDW Standard Deviation 56.1 fL (36.4-46.3); Red Blood Count 3.76 M/uL (4.7-6.1); White Blood Count 9.45 K/uL (4.8-10.8)
[2022-02-04 08:25] LABS: BUN Creatinine Ratio 16.7 (10-20); Calcium 9.2 mg/dl (8.5-10.1); Creatinine Clr Calc Pharmacy 91.8 ml/min; Est GFR (African American) 110.3 ml/min; Est GFR (Non-African American) 95.2 ml/min; Potassium 4.1 mmol/L (3.5-5.1)
[2022-02-04] MEDS ORDERED: THIAMINE HCL 100 MG TAB PO SCH (09:00)
[2022-02-04] MEDS: FAMOTIDINE 20 MG TAB PO SCH (09:15)
[2022-02-04] MEDS: DOCUSATE SODIUM/SENNA 50/8.6MG TAB PO SCH (09:15)
[2022-02-04] MEDS: lisinopril 2.5 MG TAB PO SCH (09:15)
[2022-02-04] MEDS: FOLIC ACID 400 MCG TAB PO SCH (09:15)
[2022-02-04] MEDS: AMOXICILLIN/CLAVULANATE 875 MG TAB PO SCH (09:15)
[2022-02-04] MEDS: FLUTICASONE/VILANTEROL 100/25MCG 14 PUFFS/INHALER INH SCH (09:15)
--- NOTE | 2022-02-04 14:53 | Discharge Summary ---
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 Patient is a limited historian and is unable to provide details of events prior to arrival. He states he does not know why he is in the hospital right now. He reports a cough as well as some generalized weakness, but otherwise feels well. Per review of ER, EMS and Triage notes - patient recently had ORIF right femur performed at [facility] 12 days ago. He has been recovering at home (possibly lives alone - unable to elucidate clear details of patient's current living arrangement) and has been doing ok. EMS was called today by ?family or friends? due to generalized weakness, confusion and fever x 2 days. He has been receiving Tylenol - last dose this AM. Family is requesting that patient be sent to the ER then be placed in rehab. When EMS arrived at the scene the patient was laying supine, alert, GCS 15, he was accompanied by two individuals and several animals at the time. He was afebrile 98.8, HR of 60, BP of 114/58, RR of 16 saturating 97% on room air. In the ER he has been afebrile, HD stable, NAD. Nursing noted some cough after administering PO K with water, concern for aspiration. Patient states he has had a dry cough and generalized weakness. Otherwise he denies fever, chills, chest pain, palpitations, abdominal pain, nausea, vomiting, diarrhea or constipation. He denies dysuria, hematuria, numbness/tingling or focal weakness different from baseline. Reports he is eating and drinking well at home. Has residual right sided paresis with flexion contractures from prior CVA. By EMS - patient is unable to ambulate on his own. Difficulty with transfers. Patient states he has one son that lives in [place]. He does not recall his phone number. Does not own a cellular phone. Home number [phone] tried several times with no answer. ER Course: Zosyn, KCl 30mEq, NSS Principal Diagnosis Aspiration pneumonia Urinary retention s/p erickson with removal on 02/04 Discharge Exam GENERAL: 71 yo well developed thin WM. NAD. LUNGS: Clear to auscultation bilaterally. No accessory muscle use. No W/R/R. CARDIOVASCULAR: Regular rate and rhythm. ABDOMEN: Soft, non-tender and non-distended. BS normal x 4 quad. : erickson present during morning rounds but removed prior to d/c EXTREMITIES: No edema. Non-tender. Peripheral pulses +2/4. Muscle atrophy noted. NEUROLOGIC: Awake, alert, oriented to self and aware of setting but cannot tell me which hospital or year PSYCHIATRIC: Cooperative. Appropriate mood and affect. SKIN: Warm, dry, intact. No rashes or lesions. Discharge Data Allergies Allergy/AdvReac Type Severity Reaction Status Date / Time No Known Allergies Allergy Verified 01/28/22 20:59 Consultations 01/28/22 19:48 ED Decision to Admit Stat 01/29/22 09:06 Consult Health Information Management Routine 01/29/22 17:06 Consult Gastroenterology Routine Ordered Studies Chest X-Ray 01/28/22 16:39 XR chest 1V portable HISTORY: weakness COMPARISON: None. FINDINGS: No pneumothorax. No pleural effusions. The heart is normal in size. This mild diffuse interstitial thickening which is likely chronic. Cervical spinal fusion hardware is noted. There are patchy right medial lung base airspace opacities which overlies the right heart border. IMPRESSION: Patchy right medial lung base airspace opacities which favor a pneumonia and could be due to aspiration. Follow-up chest x-ray one to 2 month is recommended to ensure resolution. ACT 112: Negative or not required by law. Electronically signed by: Abram Griffin M.D. 01/28/2022 5:[address] 01/28/22 16:[address] DOSE: 614.27 mGy.cm HISTORY: weakness, confusion TECHNIQUE: Multiaxial CT images of the head were performed without the use of intravenous contrast. Automated exposure control was utilized for this study. A dose lowering technique was utilized adhering to the principles of ALARA. Comparison: None. Findings: The paranasal sinuses and mastoid air cells are clear. The calvarium and skull base are intact. There is no mass, hematoma, midline shift, acute infarct. White matter hypodensity is nonspecific but suggestive of microvascular ischemic change. The ventricles and sulci demonstrate mild age-related involutional changes. Old lacunar infarcts seen within the bilateral basal ganglia and left thalamus. Impression: No acute intracranial abnormality. Atrophy and microvascular ischemic changes. ACT 112: Negative or not required by law. Electronically signed by: Abram Griffin M.D. 01/28/2022 5:56 PM Hip/Pelvis X-Ray 01/28/22 16:39 XR hip RT 2V w pelvis CLINICAL HISTORY: weakness, recent internal fixation of the right hip COMPARISON STUDY: None. FINDINGS: The patient is status post recent internal fixation of a right femoral intertrochanteric fracture with an intramedullary magdalena and interlocking femoral neck pin. The hardware appears intact. The alignment is near-anatomic. Skin dallas are in place. No dislocation. Vascular calcifications are noted. No fractures identified within the pelvis or left hip. IMPRESSION: The patient is status post recent internal fixation of a right femoral intertrochanteric fracture with an intramedullary magdalena and interlocking femoral neck pin. The hardware appears intact. No additional fractures identified. ACT 112: Negative or not required by law. Electronically signed by: Abram Griffin M.D. 01/28/2022 5:13 PM Liver Ultrasound 01/29/22 09:07 US liver CLINICAL HISTORY: confusion, elevated Tb/alp COMPARISON STUDY: No previous studies for comparison. FINDINGS: No hepatic lesions are identified. There is slight coarsening of hepatic echotexture and nodularity of the liver surface. There is no biliary ductal dilatation. Common bile duct measures 2 mm in caliber. Gallbladder is filled with stones. Bladder wall is slightly thickened, measuring 3 mm. Gallbladder is not distended. There is no pericholecystic fluid. No sonographic Gongora sign was reported. Pancreatic body is normal. Head and tail are slightly obscured. There is no right hydronephrosis. Small right pleural effusion is incidentally noted. IMPRESSION: 1. Gallbladder filled with gallstones. No convincing evidence for acute cholecy stitis. No biliary ductal dilatation. 2. Coarsening of hepatic echotexture and nodularity of the liver surface suggestive of cirrhosis. No hepatic lesions by sonography. 3. Small right pleural effusion. ACT 112: Negative or not required by law. Electronically signed by: Roosevelt Trammell M.D. 01/29/2022 1:07 PM Videofluoroscopic Swallow 01/29/22 11:30 MODIFIED BARIUM SWALLOW CLINICAL HISTORY: r/o aspiration COMPARISON STUDY: None. FLUOROSCOPY TIME: 2.8 minutes. TECHNIQUE: A modified barium swallow was performed in conjunction with Speech Pathology. The patient ingested varying consistencies of barium containing material. Video fluoroscopy was performed. FINDINGS: Multilevel anterior fusion and discectomy within the cervical spine is incidentally noted. This exam was compromised given difficulty positioning. Several episodes of tracheal aspiration were noted with thin liquids by spoon and cup. This elicited a cough. No aspiration was identified with mildly thick liquids, pudding or crackers with paste. There was prolonged mastication with crackers with paste. IMPRESSION: 1. Several episodes of tracheal aspiration with thin liquids by spoon and cup. No aspiration with the remainder of the consistencies. 2. Full recommendations by Speech pathology to follow. ACT 112: Negative or not required by law. Electronically signed by: Roosevelt Trammell M.D. 01/29/2022 1:15 PM Venous Doppler Study 01/29/22 12:36 US venous doppler LE RT HISTORY: 71 years-old Male s/p hip fx/repair, swelling, r/o DVT Acute sweeling of the right lower leg COMPARISON: None TECHNIQUE: Multiple real-time sonographic images of the right lower extremity deep venous structures were obtained assessing grayscale appearance, color and spectral flow. FINDINGS: Normal flow, compressibility, phasicity and augmentation. IMPRESSION: No sonographic evidence of deep venous thrombosis. ACT 112: Negative or not required by law. The above report was generated using voice recognition software. It may contain grammatical, syntax or spelling errors. Electronically signed by: Andrei Castaneda M.D. 01/29/2022 2:08 PM Chest X-Ray 01/31/22 08:00 XR chest 2V PA/lateral CLINICAL HISTORY: follow up aspiration pneumonia, RML opacities COMPARISON STUDY: Chest radiograph January 28, 2022. FINDINGS: Postoperative findings within the spine are incidentally noted. There is no pneumothorax or pleural effusion. Interstitial thickening has developed. Persistent opacity within the medial right lung base is either unchanged or slightly improved since prior exam. No additional sites of consolidation are present. IMPRESSION: 1. Opacity within the medial right lung base which may reflect an infectious process/aspiration pneumonitis. This is either unchanged or slightly improved since prior study. Continued radiographic follow up to ensure resolution is recommended. 2. Interval development of interstitial thickening. This may reflect mild pulmonary edema. ACT 112: Negative or not required by law. Electronically signed by: Roosevelt Trammell M.D. 01/31/2022 10:[address] 01/31/22 10:06 CT OF THE RIGHT HIP WITH CONTRAST CLINICAL HISTORY: recent ORIF, confusion, ?infection vs malalignment COMPARISON STUDY: Right hip radiographs January 31, 2022. TECHNIQUE: Axial images of the right hip and right femur the level of the distal diaphysis were obtained following intravenous injection of 94 cc of Optiray 320 IV. Sagittal and coronal reconstructions were viewed. Automated exposure control was utilized for the study. A dose lowering technique was utilized adhering to the principles of ALARA. FINDINGS: Gas and a Erickson balloon within the bladder are noted. No significant abnormality is identified within visualized portions of the pelvis. There is extensive vascular calcification. Note is made of postoperative findings consistent with recent internal fixation of the intertrochanteric fracture of the right femur with intramedullary magdalena and interlocking femoral neck pin. The hardware is intact. Fracture lines remain evident. Adjacent hyperdense material within the operative bed is not unexpected. No additional fractures are identified. A suspected tiny 1.8 cm fluid collection within the right gluteal musculature is noted. This is also not secondary early postoperative setting. There is a small amount of fluid adjacent to the greater trochanter. No drainable fluid collection is present. There is no CT evidence for acute osteomyelitis. IMPRESSION: Expected postoperative findings following recent internal fixation of the intertrochanteric fracture of the right femur with intramedullary magdalena and interlocking femoral neck pain. Hardware intact. Tiny right gluteal musculature operative bed fluid collection and a small amount of fluid within the operative bed are not unexpected in the early postoperative setting. ACT 112: Negative or not required by law. Electronically signed by: Roosevelt Trammell M.D. 01/31/2022 11:44 AM Hip/Pelvis X-Ray 01/31/22 10:23 XR hip RT 2V w pelvis CLINICAL HISTORY: recent ORIF. Right hip pain. COMPARISON: Pelvis and right hip radiographs January 28, 2022. FINDINGS: Incidental note is made of contrast within the colon and rectum from recent video swallow. No acute fracture within the pelvis or left hip is identified. There are stable findings following recent internal fixation of the intertrochanteric fracture of the right femur with intramedullary magdalena and interlocking femoral neck pin. Postoperative appearance is unchanged since radiograph January 28, 2022. Hardware is intact. Extensive vascular calcification is incidentally noted. IMPRESSION: Stable postoperative findings following recent internal fixation of the intertrochanteric fracture of the right femur with intramedullary magdalena and i nterlocking femoral neck pain. ACT 112: Negative or not required by law. Electronically signed by: Roosevelt Trammell M.D. 01/31/2022 10:58 AM Hospital Course (1) Confusion: Patient with underlying dementia has poor memory, unable to recollect details of events prior to arrival or details of his recent surgery. Per son, issues with confusion in afternoon/evening, especially around 3:30pm. Takes Ativan 1mg in am as needed, 1/2 tablet in afternoon. This has been ordered prn in case of confusion/agitation and has only needed two 0.5mg doses since admission He has not required a dose of Ativan since 01/31, subsequently discontinued CT head negative, Not hypoxic Confused, but pleasant. 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 * passed 2 months ago, living with son (step son, but per son, patient raised him) and patient continues to endorse he lives with his . Hx aspiration pneumonia and choked on supplemental potassium given on admission Speech eval -- swallow study. aspiration with 50% of thins. Dietary modification in place Lungs with rales/crackles RML, but also bibasilar --> on 3L O2 at home, uses mainly at night, not much during the day per son --> CXR with RML opacities and hx aspiration pna x 2 in 2016. Zosyn given in ER, transitioned to Unasyn, finished augmentin on 02/04 Maintain dietary modifications and aspiration precautions WBC now wnl, remains Afebrile UA without infection. Ammonia low B12/folate without deficiency Lyme checked, IgM positive--> was treated on Doxycycline IV BID empirically but stopped as WB was negative (2) Lyme disease: Son reports patient bit in past by multiple ticks but has never been tested for or treated for such in the past. ruled out with negative western blot Confusion likely stemming from dementia and delirium. Patient is calm right now. (3) S/P right hip fracture: S/p right hip fracture with repair 14 days ago at [facility]. Details unavailable (records have been requested) Wound with dallas in place - does not appear to be infected. Uncertain why patient is on Xarelto - patient said he has had a blood clot before but is unable to say if it was in his leg or lung? Per son, Stuart, placed on Xarelto for DVT prevention following hip surgery, co mpleted total of 3 weeks of Xarelto, can safely d/c at this time He has been living with son since discharge, history of dementia, per son related to alcohol (confirmed and asked patient about drinking and he did endorse this despite confusion, and B12/folate on EMS medications list). Per son, patient has been pretty much bed bound, and unable to take care of/transfers as of lately. Wondered if possible UTI as well given he has gotten like this in the past. Ordered Xarelto as not ordered on admission PT/OT consulted -- recommend SNF CM following Pain control with tylenol as needed CT R hip given recent ORIF and externally rotated, painful with movement, and to rule out any underlying malalignment/hematoma/infection which demonstrated normal post op changes (4) Pulmonary infiltrate: Patient with infiltrates noted on CXR. He reports dry cough. No leukocytosis, negative Procalcitonin. Do not strongly suspect PNA. ?aspiration - nursing noted cough after PO medications. Patient with history of CVA, at risk for aspiration. -Dysphagia screening -Speech/Swallow evaluation -Aspiration precautions Got ZOsyn in ER 4.5mg, additional dose 01/29 and discussed with pharmacy low risk HAP (despite recent in hospital for ORIF as above) and de-escalated to Unasyn for now but if any worsening confusion/fever/WBC elevation would go back to Zosyn Blood cultures pending Sputum cx if able to produce, has not been able to expectorate COntinue incentive spirometer Monitor (5) Hypertension: Blood pressure presently well controlled On lisinopril at home, but holding for now while assessing PO intake -- improving but slightly dry mm on exam and would continue to hold for now, BP currently 104/46 (6) Dementia: Frequent orientation. Worsening since past 2 months ago as well (she from aspiration pneumonia/sepsis/ischemic bowel/kidney failure, raimundo arently at this institution 2 months ago in the hospital. traumatic experience) Avoidance of delirium inducing agents but did add Ativan as needed instead of scheduled as takes at home and would want to prevent withdrawal--not required any since 01/31 will d/c TSH wnl, B12 not deficient (7) BPH w urinary obs/LUTS: Patient reports no difficulty with urination. Continue Flomax 0.4mg daily Erickson placed, UA without evidence for infection. Monitor/voiding trial prior to discharge. Had been having issues with incontinence prior UOP acceptable Erickson has since been removed for voiding trial, if requires re-insertion at SNF, would recommend referral to urology (8) Emphysema lung: Stable at baseline. Adequate oxygenation. No wheezing. Albuterol as needed, ordered -- ordered 1x dose now Continue Breo Ellipta which he was rx'd prior to d/c Supplemental O2 as needed - goal saturation 92% and currently such, not currently requiring any supplemental O2 (9) owning: reported by son and usually well manageable with his baseline ativan, wh ich has only been ordered prn given confusion to prevent worsening confusion Again will d/c Ativan, if this occurs at SNF, would recommend starting Seroquel (10) Hypokalemia: replaced/resolved (11) CVA (cerebral vascular accident): Hx of CVA with R sided weakness per PCP note with episode of expressive aphasia April 2010 Also notes a history of polycythemia and regular phlebotomies? Hgb not elevated, no active bleeding noted Small hematoma to site of R hip ORIF but stable from day prior. Xray with stable placement but checking CT given continued issues with not being able to straighten out/pain with movement (12) Elevated LFTs: Elevated ALP, although recent ORIF and could be from bone RUQ obtained given elderly patient with confusion and elevated ALP to r/o GB pathology RUQ with GB filled with gallstones, no convincing evidence for acute cholecystitis. No biliary ductal dilatation. Coarsening of hepatic echotexture and nodularity of the liver surface suggestive of cirrhosis (likely from history of alcohol use/abuse). Small R pleural effusion, ALP still elevated. GI on consult did not advise further GB work up at this point. (13) Cirrhosis: noted on RUQ US, obtained given confusion and TB 1.1 with elevated ALP on admission, likely 2nd to long standing alcohol use (although recent ALP could be from bone given recent fx, vit D wnl) recommend cessation moving forward of alcohol ammonia not elevated ALP up, but decreased from admission. GI consulted, re-consult if development of ascites but no issues with GB at this time Pt is medically and hemodynamically stable for discharge at this time. Accepted at SNF. Will resume medications as prescribed prior to hospitalization with addition of ASA for stroke risk prevention d/t history of prior CVA. No plan to continue Ativan as outlined above. Advise f/u with PCP at [facility]. Above plan d/w Dr. Scott who has also seen this patient prior to discharge and is in agreement with the aforementioned. Total Time Total Time Spent Total Time Spent (In Minutes): >30 minutes Discharge Plan Discharge Items Patient Disposition: Transfer Care Home Fac Reason For Visit: CONFUSION, REPORTED FEVER Discharge Diagnosis: aspiration pneumonia Activity: Resume your previous activity Non-emergency contact: Primary Care Provider Call non-emergency contact if: you have any medication questions and your symptoms worsen Follow-up/Referrals: PCP,NO [Physician] - Diet: Regular Diet Texture: Dental soft (bite-sized) Liquid Consistency: [place] thick Addtl Attending Provider Instructions: You were hospitalized due to increased confusion and fever which is felt to be directly related to your diagnosis of pneumonia. The pneumonia was caused by aspiration of food/liquids that are entering into your lungs when you swallow instead of entering into the esophagus and eventually stomach. You have been seen by speech therapy who recommends that you follow the following recommendations: * Follow Minced and moist IDDS15 diet with mildly thick liquids IDDSI 2 * Downgrade to pureed diet if patient demonstrates difficulty with solid food items and cannot tolerate orally * Aspiration precautions as outlined (Elevate HOB x 30 min, alternate solids and liquids, crush meds, supervise meals, give meds in a carrier, no straws, small bites) * Oral hygiene (clean all surfaces of mouth, dentures, tongue, cheeks) before any PO intake and before bed * Continue speech therapy at [facility] You completed a course of antibiotics for your pneumonia. You may continue wearing nocturnal oxygen (as needed) as you were doing prior to admission. It does not appear that you were requiring any supplemental oxygen overnight during this hospitalization. Continue current outpatient medications as prescribed including: Zoloft 150mg daily (on this prior to admission), Tamsulosin 0.4mg daily, Breo Ellipta. Will add Aspirin 81mg daily for stroke risk reduction given history of stroke. A urinary catheter had to be placed during this admission due to retaining urine in your bladder. This catheter has been removed, however, may need to be re- inserted if you fail to demonstrate the ability to pee. It would be recommended that you follow up with urology if you should require replacement of the catheter at the nursing facility as this may be due to your prostate and it may eventually need to be resected. In the meantime, continue the Flomax that you are taking as prescribed. We would recommend that you follow up with the primary care provider at the long term [facility] within 48-72 hours of arrival. Pending Studies at Discharge: No Stand-Alone Forms: My [facility] Skilled Items Patient informed of condition?: No DNR: No Discharge Level of Care: Skilled Communicable Disease: No Discharge Prognosis: Stable Lines: None Urinary Catheter: No Medications and DC Order Prescriptions: New Breo Ellipta 100-25 mcg/dose Blister With Device 1 puff inhalation DAILY Qty: 1 RF: 0 aspirin 81 mg capsule 81 mg PO DAILY Qty: 30 RF: 0 sertraline 150 mg capsule 150 mg PO DAILY Qty: 30 RF: 0 Continued tamsulosin [Flomax] 0.4 mg capsule 0.4 mg PO QPM Qty: 30 RF: 2 Discharge Orders: Discharge Order (Routine); Ordered 02/04/22 Ordered By: Graciela Patel Admission Data Admit Date/Time: 01/30/22 10:20 Attending Provider: Javad Sctot Admit Provider: Ashley Bledsoe Primary Care Provider: Carlos De Souza Other Providers: Ashley Bledsoe ; [facility] ; [facility] ; [facility] ; Bob Hodge Other Interventions: Discharge Summary Assessment (RN) Last Done: 02/04/22 15:13 Supervising Physician Co-Signing Physician Notes I personally saw and examined the patient. I verified all lan points and agree with Graciela Patel PA-C with the following exceptions and/or additions: 71-year-old male admission for aspiration pneumonia. Diet recommendations as above. Recommend discontinuing Ativan since he has not needed this. Bibasal crackles right greater than left on exam. Appears to be medically stable for discharge. Other recommendations as above. Coding Level of Care Code D/C DAY MANAGEMENT >30 MINS Diagnoses Confusion R41.0 Lyme disease A69.20 S/P right hip fracture Z87.81 Pulmonary infiltrate R91.8 Hypertension I10 Dementia F03.90 BPH w urinary obs/LUTS N40.1; N13.8 Emphysema lung J43.9 F05 Hypokalemia E87.6 CVA (cerebral vascular accident) I63.9 Elevated LFTs R79.89 Cirrhosis K74.60
== END 2022-02-04 16:12 | DRG 178 ==
LOC: ED 16:27 → 3W 16:27 → SUATTDRO 20:28 → 3W 22:07 → SUATTDRO 01-30 10:20

== ENCOUNTER 2022-06-22 18:37 | Observation (INO) ==
[2022-06-22 19:10] LABS: Basophils # (auto) 0.02 K/uL (0-0.2); Basophils % (auto) 0.2 %; Eosinophils # (auto) 0.13 K/uL (0-0.50); Eosinophils % (auto) 1.3 %; Hematocrit (blood only) 36.7 % (40.1-51.0); Hemoglobin 12.7 g/dl (14.0-18.0); Immature Granulocytes # (auto) 0.04 K/uL (0.00-0.02); Immature Granulocytes % (auto) 0.4 %; Lymphocytes # (auto) 1.67 K/uL (1.2-3.4); Lymphocytes % (auto) 16.4 %; Mean Corpuscular Hemoglobin 31.8 pg (25.0-34.0); Mean Corpuscular Hgb Conc 34.6 g/dL (32.0-36.0); Mean Platelet Volume 10.5 fL (9.4-12.4); Monocytes # (auto) 0.58 K/uL (0.24-0.82); Monocytes % (auto) 5.7 %; Neutrophils # (auto) 7.77 K/uL (1.4-6.5); Platelet Count 202 K/uL (130-400); RDW Coefficient of Variation 13.2 % (11.5-14.5); RDW Standard Deviation 43.9 fL (36.4-46.3); Red Blood Count 3.99 M/uL (4.63-6.08); White Blood Count 10.21 K/ul (4.8-10.8)
[2022-06-22 19:22] LABS: Base Excess VBG 2.4 mEq/L; HCO3 VBG 26 mmol/L; Oxygen Saturation VBG 76.5 %; PCO2 VBG 38 mmHg (38-50); PO2 VBG 46 mmHg; pH VBG 7.45 (7.36-7.41)
[2022-06-22 19:28] LABS: Calcium 8.6 mg/dl (8.5-10.1); Creatinine Clr Calc Pharmacy 84.4 ml/min; Est GFR (African American) 108.5 ml/min; Est GFR (Non-African American) 93.6 ml/min; Potassium 3.7 mmol/L (3.5-5.1)
--- NOTE | 2022-06-22 19:31 | XRay Report ---
XR chest 1V portable CLINICAL HISTORY: Altered mental status. COMPARISON STUDY: Chest radiograph March 21, 2022. FINDINGS: Postoperative findings within the spine are incidentally noted. Lung volumes are mildly dim inished. There is no pneumothorax or pleural effusion. Cardiomediastinal silhouette is stable. There is pulmonary vascular congestion. Note is made of airspace opacity within the medial right lung base. IMPRESSION: 1. Airspace opacity within the medial right lung base. This could reflect pneumonia or atelectasis. R adiographic follow-up to ensure resolution is recommended. 2. Pulmonary vascular congestion. ACT 112: Negative or not required by law. Electronically signed by: Roosevelt Trammell M.D. 06/22/2022 7:29 PM
--- NOTE | 2022-06-22 19:42 | CT Scan Report ---
CT OF THE HEAD WITHOUT CONTRAST CLINICAL HISTORY: Altered mental status. COMPARISON STUDY: Head CT January 28, 2022. CT DOSE: 537.48 mGy.cm TECHNIQUE: Helical axial images of the head were obtained without IV contrast. Automated exposure con trol was utilized for the study. A dose lowering technique was utilized adhering to the principles o f ALARA. FINDINGS: No acute intracranial hemorrhage, midline shift or mass effect is present. The ventricular system is stable. White matter hypodensities are unchanged and suggest small vessel disease. Old lacu ramses infarcts within the bilateral basal ganglia and left thalamus are again noted. The basal cisterns are patent. No extra-axial collections are present. There are no findings to suggest acute dural sin us thrombosis or acute territorial infarct. No significant calvarial abnormalities are present. Visua lized portions of the sinuses and mastoid air cells are clear. IMPRESSION: No acute intracranial findings. No change in appearance of the brain. ACT 112: Negative or not required by law. Electronically signed by: Roosevelt Trammell M.D. 06/22/2022 7:40 PM
[2022-06-22 21:52] LABS: Appearance Urine Clear (Clear); Bacteria Urine Automated 4+ (Negative); Bilirubin Urine Negative (Negative); Blood Urine Negative (Negative); Color Urine Yellow; Epithelial Cell Urine Auto >30 /lpf (0-5); Glucose Urine UA Negative (Negative); Ketones Urine Negative (Negative); Leukocyte Esterase Urine 1+ (Negative); Nitrite Urine Positive (Negative); Protein Urine Negative (Negative); RBC Urine Automated 0-4 /hpf (0-4); Specific Gravity Urine 1.017 (1.000-1.030); Urobilinogen Urine Negative (Negative)
--- NOTE | 2022-06-23 00:22 | Emergency Department Note ---
History of Present Illness General Chief complaint: Illness Stated complaint: Increased confusion Time Seen by Provider: 06/22/22 18:42 Source: EMS and RN notes reviewed History of Present Illness Provider complaint: Increased confusion 71-year-old male presents emergency department for altered mental status. Patient was brought here by EMS. Per EMS the family reports that the patient is increasingly confused they called 911. Patient has a history of dementia and stroke. Home Medications Medication Instructions Recorded Confirmed Type sertraline 150 mg capsule 150 mg PO DAILY #30 caps 02/04/22 03/21/22 Rx acetaminophen 325 mg tablet 650 mg PO Q4 PRN Fever Or Pain 03/21/22 03/21/22 History aspirin 81 mg capsule 81 mg PO QAM 03/21/22 03/21/22 History fluticasone furoate 100 1 puff inhalation QAM 03/21/22 03/21/22 History mcg-vilanterol 25 mcg/dose inhalation powder (Breo Ellipta) tamsulosin 0.4 mg capsule (Flomax) 0.4 mg PO QAM 03/21/22 03/21/22 History thiamine HCl (vitamin B1) 100 mg 100 mg PO QAM 03/21/22 03/21/22 History tablet triamterene 37.5 1 tab PO DAILY 06/22/22 06/22/22 History mg-hydrochlorothiazide 25 mg tablet Allergies Allergy/AdvReac Type Severity Reaction Status Date / Time No Known Allergies Allergy Verified 03/21/22 02:41 Past Med/Surg History Medical History Arthritis Asthma Dementia Emphysema lung Hypertension Skin cancer Stroke 2009 with residual right sided weakness Surgical History History of fusion of cervical spine History of open reduction and internal fixation (ORIF) procedure right femur Family History Other No significant family history Social History Smoking Status: Former smoker Tobacco Type: Cigarettes Hx Alcohol Use: Yes Alcohol type: beer Alcohol Intake Frequency: 4 or More x per/Week Hx Substance Use: No Preferred Language: Kyrgyz Communication Ability: Impaired Analyst Market Intelligence Required: No Beliefs That Will Affect Care: None marital status: / Current Living Situation Comment: patient states he lives alone with hoahaoism people that help could not name c How many Children do You have: 1 Feels Safe at Home: Yes Assistive Devices: Walker and Wheelchair Review of Systems Unobtainable due to cognitive status Physical Exam Vital Signs Vital Signs - 24 hr 06/22/22 18:48 06/22/22 18:47 06/22/22 18:48 Temperature 36.7 C Temperature Source Oral Pulse Rate 73 69 Pulse Rate [Apical] 70 Pulse Rate from SpO2 Sensor Pulse Rhythm Regular Regular Pulse Rhythm [Apical] Regular Pulse Strength Normal Pulse Strength [Apical] Normal Respiratory Rate 24 20 22 Respiratory Effort / Characteristics Non-Labored Non-Labored Respiratory Depth Normal Normal Respiratory Pattern Regular Regular Blood Pressure 129/79 Blood Pressure Mean 95 Blood Pressure Position Lying Pulse Oximetry 94 93 98 Oxygen Delivery Method Room Air Room Air Sepsis Recent Fever Within 48 Hours No Sepsis New/Unexplained Change in Mental Status No Sepsis Action Taken by Nursing No Action Required 06/22/22 18:45 06/22/22 19:00 06/22/22 19:30 Temperature Temperature Source Pulse Rate 71 71 71 Pulse Rate [Apical] Pulse Rate from SpO2 Sensor 71 71 Pulse Rhythm Pulse Rhythm [Apical] Pulse Strength Pulse Strength [Apical] Respiratory Rate 22 22 20 Respiratory Effort / Characteristics Respiratory Depth Respiratory Pattern Blood Pressure Blood Pressure Mean Blood Pressure Position Pulse Oximetry 93 91 Oxygen Delivery Method Sepsis Recent Fever Within 48 Hours Sepsis New/Unexplained Change in Mental Status Sepsis Action Taken by Nursing 06/22/22 19:47 06/22/22 19:47 06/22/22 20:00 Temperature Temperature Source Pulse Rate 76 Pulse Rate [Apical] Pulse Rate from SpO2 Sensor Pulse Rhythm Pulse Rhythm [Apical] Pulse Strength Pulse Strength [Apical] Respiratory Rate 22 Respiratory Effort / Characteristics Respiratory Depth Respiratory Pattern Blood Pressure 139/62 149/69 H Blood Pressure Mean 87 95 Blood Pressure Position Pulse Oximetry Oxygen Delivery Method Sepsis Recent Fever Within 48 Hours Sepsis New/Unexplained Change in Mental Status Sepsis Action Taken by Nursing 06/22/22 20:00 06/22/22 20:30 06/22/22 20:31 Temperature Temperature Source Pulse Rate 74 75 Pulse Rate [Apical] Pulse Rate from SpO2 Sensor Pulse Rhythm Pulse Rhythm [Apical] Pulse Strength Pulse Strength [Apical] Respiratory Rate 20 19 Respiratory Effort / Characteristics Respiratory Depth Respiratory Pattern Blood Pressure 144/59 H Blood Pressure Mean 87 Blood Pressure Position Pulse Oximetry Oxygen Delivery Method Sepsis Recent Fever Within 48 Hours Sepsis New/Unexplained Change in Mental Status Sepsis Action Taken by Nursing 06/22/22 20:31 06/22/22 21:00 06/22/22 21:02 Temperature Temperature Source Pulse Rate 75 80 Pulse Rate [Apical] Pulse Rate from SpO2 Sensor Pulse Rhythm Pulse Rhythm [Apical] Pulse Strength Pulse Strength [Apical] Respiratory Rate 25 H 19 Respiratory Effort / Characteristics Respiratory Depth Respiratory Pattern Blood Pressure 71/57 L Blood Pressure Mean 61 Blood Pressure Position Pulse Oximetry Oxygen Delivery Method Sepsis Recent Fever Within 48 Hours Sepsis New/Unexplained Change in Mental Status Sepsis Action Taken by Nursing 06/22/22 21:02 06/22/22 21:30 06/22/22 21:47 Temperature Temperature Source Pulse Rate 77 90 Pulse Rate [Apical] Pulse Rate from SpO2 Sensor 76 Pulse Rhythm Pulse Rhythm [Apical] Pulse Strength Pulse Strength [Apical] Respiratory Rate 20 18 Respiratory Effort / Characteristics Respiratory Depth Respiratory Pattern Blood Pressure Blood Pressure Mean Blood Pressure Position Pulse Oximetry 93 Oxygen Delivery Method Sepsis Recent Fever Within 48 Hours Sepsis New/Unexplained Change in Mental Status Sepsis Action Taken by Nursing 06/22/22 21:47 06/22/22 22:00 06/22/22 22:30 Temperature Temperature Source Pulse Rate Pulse Rate [Apical] Pulse Rate from SpO2 Sensor 82 Pulse Rhythm Pulse Rhythm [Apical] Pulse Strength Pulse Strength [Apical] Respiratory Rate Respiratory Effort / Characteristics Respiratory Depth Respiratory Pattern Blood Pressure 153/68 H 139/100 Blood Pressure Mean 96 113 Blood Pressure Position Pulse Oximetry 93 Oxygen Delivery Method Sepsis Recent Fever Within 48 Hours Sepsis New/Unexplained Change in Mental Status Sepsis Action Taken by Nursing 06/22/22 22:30 06/22/22 23:38 Temperature Temperature Source Pulse Rate 77 Pulse Rate [Apical] Pulse Rate from SpO2 Sensor 78 Pulse Rhythm Pulse Rhythm [Apical] Pulse Strength Pulse Strength [Apical] Respiratory Rate 20 Respiratory Effort / Characteristics Respiratory Depth Respiratory Pattern Blood Pressure 130/88 Blood Pressure Mean 102 Blood Pressure Position Pulse Oximetry 95 94 Oxygen Delivery Method Sepsis Recent Fever Within 48 Hours Sepsis New/Unexplained Change in Mental Status Sepsis Action Taken by Nursing Physical Exam HENT: Exam performed. - Head: Normocephalic and atraumatic. - Right Ear: External ear normal. No mastoid tenderness. - Left Ear: External ear normal. No mastoid tenderness. - Mouth/Throat: The oropharynx is clear and moist. No trismus in the jaw. No dental abscesses or uvula swelling. No oropharyngeal exudate or tonsillar abscesses. EYES: Conjunctivae and EOM are normal. Pupils are equal, round, and reactive to light. Right eye exhibits no discharge. Left eye exhibits no discharge. No scleral icterus. NECK: Normal range of motion. Neck supple. No JVD present. No spinous process tenderness present. No carotid bruit present. No rigidity. No tracheal deviation and normal range of motion present. No Brudzinski's sign and no Kernig's sign noted. CV: Normal rate, regular rhythm, normal heart sounds and intact distal pulses. There is no peripheral edema. Palpable radial pulses bue. PULM/CHEST: Effort normal and breath sounds normal. No respiratory distress. No stridor. He has no wheezes. He has no rales. ABD: The abdomen is soft. MUSC/SKEL: Normal range of motion. There is no peripheral edema, tenderness or deformity. LYMPH: No cervical adenopathy. NEURO: dysarthria and residual right-sided weakness at baseline. Course Course 1841: The patient was evaluated in room C3. A complete history and physical exam was performed Medical Decision Making Laboratory Data Result diagrams: 06/22/22 19:00 06/22/22 19:00 Lab Results 06/22/22 06/22/22 06/22/22 Range/Units 19:00 19:00 19:11 WBC 10.21 (4.8-10.8) K/ul RBC 3.99 L (4.63-6.08) M/uL Hgb 12.7 L (14.0-18.0) g/dl Hct 36.7 L (40.1-51.0) % MCV 92.0 (80.0-100.0) fL MCH 31.8 (25.0-34.0) pg MCHC 34.6 (32.0-36.0) g/dL RDW Std Deviation 43.9 (36.4-46.3) fL RDW Coeff of Brittney 13.2 (11.5-14.5) % Plt Count 202 (130-400) K/uL MPV 10.5 (9.4-12.4) fL Immature Gran % (Auto) 0.4 % Neut % (Auto) 76.0 % Lymph % (Auto) 16.4 % Boundary % (Auto) 5.7 % Eos % (Auto) 1.3 % Baso % (Auto) 0.2 % Neut # (Auto) 7.77 H (1.4-6.5) K/uL Lymph # (Auto) 1.67 (1.2-3.4) K/uL Boundary # (Auto) 0.58 (0.24-0.82) K/uL Eos # (Auto) 0.13 (0-0.50) K/uL Baso # (Auto) 0.02 (0-0.2) K/uL Immature Gran # (Auto) 0.04 H (0.00-0.02) K/uL VBG pH (7.36-7.41) VBG pCO2 (38-50) mmHg VBG pO2 mmHg VBG HCO3 mmol/L VBG O2 Saturation % VBG Base Excess mEq/L Sodium 137 (136-145) mmol/L Potassium 3.7 (3.5-5.1) mmol/L Chloride 105 (98-107) mmol/L Carbon Dioxide 25 (21-32) mmol/L Anion Gap 7 (3-11) BUN 24 H (6-23) mg/dl Creatinine 0.75 (0.6-1.4) mg/dl Est Cr Clr Drug Dosing 84.4 ml/min Est GFR ( Amer) 108.5 ml/min Est GFR (Non-Af Amer) 93.6 ml/min BUN/Creatinine Ratio 32.0 H (10-20) Glucose 94 (70-99(Fasting)) mg/dl POC Glucose (70-99) mg/dl Calcium 8.6 (8.5-10.1) mg/dl Ammonia 32.0 (18-72) umol/L Urine Color Urine Appearance (Clear) Urine pH (4.5-7.5) Ur Specific Amity (1.000-1.030) Urine Protein (Negative) Urine Glucose (UA) (Negative) Urine Ketones (Negative) Urine Blood (Negative) Urine Nitrite (Negative) Urine Bilirubin (Negative) Urine Urobilinogen (Negative) Ur Leukocyte Esterase (Negative) Urine WBC (Auto) (0-5) /hpf Urine RBC (Auto) (0-4) /hpf U Hyaline Cast (Auto) (0-5) /lpf U Epithel Cells (Auto) (0-5) /lpf Urine Bacteria (Auto) (Negative) Ur Renal Epithelial Cell 06/22/22 06/22/22 06/22/22 Range/Units 19:11 19:11 20:25 WBC (4.8-10.8) K/ul RBC (4.63-6.08) M/uL Hgb (14.0-18.0) g/dl Hct (40.1-51.0) % MCV (80.0-100.0) fL MCH (25.0-34.0) pg MCHC (32.0-36.0) g/dL RDW Std Deviation (36.4-46.3) fL RDW Coeff of Brittney (11.5-14.5) % Plt Count (130-400) K/uL MPV (9.4-12.4) fL Immature Gran % (Auto) % Neut % (Auto) % Lymph % (Auto) % Boundary % (Auto) % Eos % (Auto) % Baso % (Auto) % Neut # (Auto) (1.4-6.5) K/uL Lymph # (Auto) (1.2-3.4) K/uL Boundary # (Auto) (0.24-0.82) K/uL Eos # (Auto) (0-0.50) K/uL Baso # (Auto) (0-0.2) K/uL Immature Gran # (Auto) (0.00-0.02) K/uL VBG pH 7.45 H (7.36-7.41) VBG pCO2 38 (38-50) mmHg VBG pO2 46 mmHg VBG HCO3 26 mmol/L VBG O2 Saturation 76.5 % VBG Base Excess 2.4 mEq/L Sodium (136-145) mmol/L Potassium (3.5-5.1) mmol/L Chloride (98-107) mmol/L Carbon Dioxide (21-32) mmol/L Anion Gap (3-11) BUN (6-23) mg/dl Creatinine (0.6-1.4) mg/dl Est Cr Clr Drug Dosing ml/min Est GFR ( Amer) ml/min Est GFR (Non-Af Amer) ml/min BUN/Creatinine Ratio (10-20) Glucose (70-99(Fasting)) mg/dl POC Glucose 105 H (70-99) mg/dl Calcium (8.5-10.1) mg/dl Ammonia (18-72) umol/L Urine Color Yellow Urine Appearance Clear (Clear) Urine pH 7.0 (4.5-7.5) Ur Specific Amity 1.017 (1.000-1.030) Urine Protein Negative (Negative) Urine Glucose (UA) Negative (Negative) Urine Ketones Negative (Negative) Urine Blood Negative (Negative) Urine Nitrite Positive A (Negative) Urine Bilirubin Negative (Negative) Urine Urobilinogen Negative (Negative) Ur Leukocyte Esterase 1+ H (Negative) Urine WBC (Auto) 5-10 H (0-5) /hpf Urine RBC (Auto) 0-4 (0-4) /hpf U Hyaline Cast (Auto) 1-5 (0-5) /lpf U Epithel Cells (Auto) >30 H (0-5) /lpf Urine Bacteria (Auto) 4+ H (Negative) Ur Renal Epithelial Cell Not Reportable Imaging Data Radiologist's Impression: Chest X-Ray 06/22/22 18:48 XR chest 1V portable CLINICAL HISTORY: Altered mental status. COMPARISON STUDY: Chest radiograph March 21, 2022. FINDINGS: Postoperative findings within the spine are incidentally noted. Lung volumes are mildly diminished. There is no pneumothorax or pleural effusion. Cardiomediastinal silhouette is stable. There is pulmonary vascular congestion. Note is made of airspace opacity within the medial right lung base. IMPRESSION: 1. Airspace opacity within the medial right lung base. This could reflect pneumonia or atelectasis. Radiographic follow-up to ensure resolution is recommended. 2. Pulmonary vascular congestion. ACT 112: Negative or not required by law. Electronically signed by: Roosevelt Trammell M.D. 06/22/2022 7:[address] 06/22/22 18:48 CT OF THE HEAD WITHOUT CONTRAST CLINICAL HISTORY: Altered mental status. COMPARISON STUDY: Head CT January 28, 2022. CT DOSE: 537.48 mGy.cm TECHNIQUE: Helical axial images of the head were obtained without IV contrast. Automated exposure control was utilized for the study. A dose lowering technique was utilized adhering to the principles of ALARA. FINDINGS: No acute intracranial hemorrhage, midline shift or mass effect is present. The ventricular system is stable. White matter hypodensities are unchanged and suggest small vessel disease. Old lacunar infarcts within the bilateral basal ganglia and left thalamus are again noted. The basal cisterns are patent. No extra-axial collections are present. There are no findings to suggest acute dural sinus thrombosis or acute territorial infarct. No significant calvarial abnormalities are present. Visualized portions of the sinuses and mastoid air cells are clear. IMPRESSION: No acute intracranial findings. No change in appearance of the brain. ACT 112: Negative or not required by law. Electronically signed by: Roosevelt Trammell M.D. 06/22/2022 7:40 PM MDM Narrative Cardiac monitoring: An order was placed for continuous cardiac monitoring. The monitor shows a rate of 80 with sinus rhythm And stable. Labs within normal limits. Urinalysis shows possible UTI. X-ray shows pneumonia in the right middle lobe possibly aspiration pneumonia. Multiple attempts were made to reach the patient's family to obtain more clinical history however there is no response. Patient has dementia and is unable to give any accurate history. Patient will be treated with Zosyn and admitted to [facility] service. Impression & Plan Pneumonia, Dementia, Acute UTI Discharge Plan Visit Data Chief Complaint: Illness Stated Complaint: Increased confusion ED Provider: Henri St Discharge Problem: Pneumonia, Dementia, Acute UTI Patient Disposition: Admitted As Inpatient Forms Stand Alone Forms: My [facility] Prescriptions Prescriptions: No Action sertraline 150 mg capsule 150 mg PO DAILY Qty: 30 0RF tamsulosin [Flomax] 0.4 mg capsule 0.4 mg PO QAM fluticasone furoate-vilanterol [Breo Ellipta] 100-25 mcg/dose blister with device 1 puff inhalation QAM aspirin 81 mg capsule 81 mg PO QAM acetaminophen 325 mg tablet 650 mg PO Q4 PRN (Reason: Fever Or Pain) thiamine HCl (vitamin B1) 100 mg Tablet 100 mg PO QAM triamterene-hydrochlorothiazid 37.5-25 mg tablet 1 tab PO DAILY Referrals Referrals: Carlos De Souza DO [Primary Care Provider] -
[2022-06-23] MEDS ORDERED: PIPERACILLIN/TAZOBACTAM 4.5 GM/120 ML BAG IV ONE (00:30)
--- NOTE | 2022-06-23 01:17 | History & Physical Report ---
Date of Service June 23, 2022 Assessment & Plan (1) Acute UTI: Plan: Jerry Garcia is a 71-year-old male with past medical history of stroke, dementia, hypertension, emphysema, cirrhosis, BPH with LUTS who presented due to family reports of altered mental status. UTI Reports of confusion likely related to acute urinary tract infection as evidenced by urinalysis with positive LE and nitrites Stable vital signs, no criteria for sepsis Received Zosyn in ED Will transition to ceftriaxone 2 g IV daily Urine and blood cultures ordered and pending He does seem dry on exam and BUN/creatinine ratio of 32 start gentle IV fluids Admit to MedSurg Hypertension Continue home triamterene-hydrochlorothiazide History of CVA Continue home aspirin Patient not on statin Dementia/depression Continue home sertraline Asthma/emphysema Continue home Breo Ellipta BPH with LUTS Continue home Flomax DVT prophylaxis: Heparin SQ every 12 Diet: Heart healthy, LR at 80 cc/h x 1 bag [facility] [place] [facility] home needs CODE STATUS: Full, per chart review on previous admissions (2) Hypertension: (3) Dementia: (4) BPH w urinary obs/LUTS: (5) Asthma: History of Present Illness Primary Care Provider: Carlos De Souza DO Jerry Garcia is a 71-year-old male with past medical history of stroke, dementia, hypertension, emphysema, cirrhosis, BPH with LUTS who presented due to family reports of altered mental status. The patient was brought into the hospital by EMS. EMS reported that family had complained of the patient being increasingly confused. He does have a history of both stroke and dementia. At the time of my evaluation patient is in bed resting comfortably. While he does respond to his name and converses appropriately, he is unable to give much of a meaningful history. He denies any current chest pain, palpitations, shortness of breath, cough, nausea, vomiting, abdominal pain, flank pain, weakness, numbness. He does deny urinary symptoms. Denies feeling febrile or having chills. In ED patient had normal vital signs, CT head without any acute findings. Lab work with normal white count, anemia with hemoglobin of 12.7, normal electrolytes, though did have a BUN/creatinine ratio of 32, normal ammonia level. Urinalysis remarkable for leukocyte esterase and nitrites. Urine cultures and blood cultures were drawn. He received Zosyn 4.5 g IV x1. Allergies Allergy/AdvReac Type Severity Reaction Status Date / Time No Known Allergies Allergy Verified 06/23/22 01:46 Home Medications Medication Instructions Recorded Confirmed Type sertraline 150 mg capsule 150 mg PO DAILY #30 caps 02/04/22 06/23/22 Rx acetaminophen 325 mg tablet 650 mg PO Q4 PRN Fever Or Pain 03/21/22 06/23/22 History aspirin 81 mg capsule 81 mg PO QAM 03/21/22 06/23/22 History fluticasone furoate 100 1 puff inhalation QAM 03/21/22 06/23/22 History mcg-vilanterol 25 mcg/dose inhalation powder (Breo Ellipta) tamsulosin 0.4 mg capsule (Flomax) 0.4 mg PO QAM 03/21/22 06/23/22 History thiamine HCl (vitamin B1) 100 mg 100 mg PO QAM 03/21/22 06/23/22 History tablet triamterene 37.5 1 tab PO DAILY 06/22/22 06/22/22 History mg-hydrochlorothiazide 25 mg tablet lisinopril 2.5 mg tablet 2.5 mg PO DAILY 06/23/22 06/23/22 History tramadol 50 mg tablet 50 mg PO Q6 PRN Pain 06/23/22 06/23/22 History Past Med/Surg History Medical History (Updated 06/23/22 @ 18:21 by Jer Bonilla) Arthritis Asthma Dementia Emphysema lung Hypertension Skin cancer Stroke 2009 with residual right sided weakness Surgical History History of fusion of cervical spine History of open reduction and internal fixation (ORIF) procedure right femur Family History Other No significant family history Social History Smoking Status: Former smoker Tobacco Type: Cigarettes Hx Alcohol Use: Yes Alcohol type: beer Alcohol Intake Frequency: 4 or More x per/Week Hx Substance Use: No Preferred Language: Tuvaluan Communication Ability: Impaired Head Rose Grower Required: No Beliefs That Will Affect Care: None marital status: / Current Living Situation: Family Current Living Situation Comment: patient states he lives alone with alevism people that help could not name c How many Children do You have: 1 Other Information That Helps Us Care for You: No Feels Safe at Home: Yes Safety Concerns: Feels Safe At This Time Assistive Devices: None Review of Systems Review of Systems: Per HPI Physical Exam Physical Exam: GENERAL: A&Ox1. NAD. HEENT: PERRL, EOMI. Moist mucous membranes. NECK: No JVD. No lymphadenopathy. CHEST/LUNGS: CTAB A/P. No crackles, wheezes, rales, rhonchi. HEART: RRR. No m/g/r. No carotid bruits. ABDOMEN: NT/ND, soft. BS+ x4 EXTREMITIES: No cyanosis, no clubbing, no edema SKIN: Warm and dry. No rashes or lesions. PSYCHIATRIC: Euthymic affect, no SI, no pressured speech, no hallucinations NEUROLOGIC: Some pre-existing right arm weakness, dysarthria. Results & Data Results & Data ([facility]) Vital Signs (Past 12 Hours) Vital Signs Temp Pulse Pulse Resp BP Pulse Ox O2 Del Method 06/22/22 23:38 77 20 130/88 94 06/22/22 22:30 95 06/22/22 22:30 139/100 06/22/22 22:00 93 06/22/22 21:47 153/68 H 06/22/22 21:47 93 06/22/22 21:30 90 18 06/22/22 21:02 77 20 06/22/22 21:02 71/57 L 06/22/22 21:00 80 19 06/22/22 20:31 75 25 H 06/22/22 20:31 144/59 H 06/22/22 20:30 75 19 06/22/22 20:00 74 20 06/22/22 20:00 149/69 H 06/22/22 19:47 139/62 06/22/22 19:47 76 22 06/22/22 19:30 71 20 06/22/22 19:00 71 22 91 06/22/22 18:45 71 22 93 06/22/22 18:48 69 22 98 Room Air 06/22/22 18:47 70 20 93 06/22/22 18:48 36.7 C 73 24 129/79 94 Room Air Code Status & VTE Plan VTE Prophylaxis Plan VTE Prophylaxis will be ordered: Yes Supervising Physician Co-Signing Physician Notes Attending addendum: I have physically seen this patient, have supervised the medical residents activities, and agree with the H&P unless as otherwise noted. Assessment and Plan: Acute urinary tract infection- Follow urine culture and sensitivity Received Zosyn IV from the ED Admit on ceftriaxone 2 g IV daily IV fluids Hypertension- Triamterene/HCTZ Potassium 3.7, sodium 137 Follow serial laboratories while in hospital Asthma/emphysema- chest x-ray with atelectasis versus infiltrate right middle lobe Continue Breo Ellipta No significant symptoms of shortness of breath or chest pain Follow oxygenation and exam closely Cerebrovascular disease/history of CVA- Continue aspirin Check a fasting lipid panel BPH with LUTS- Continue tamsulosin Remaining orders and notations as noted Resident Activity Tracking Resident Involvement: Resident Care Provided Care Provided: Adult Hospital Medicine
[2022-06-23] MEDS ORDERED: POLYETHYLENE (MIRALAX) 17 GM PACK PO PRN (03:04)
[2022-06-23] MEDS ORDERED: ONDANSETRON INJ 2 MG/ML 2 ML VIAL IV PRN (03:04)
[2022-06-23] MEDS ORDERED: ACETAMINOPHEN 325 MG TAB PO PRN (03:04)
[2022-06-23] MEDS: LACTATED RINGER'S 1,000 ML IV SCH ×2 (03:52→15:56)
[2022-06-23] MEDS: TAMSULOSIN HCL 0.4 MG CAP PO SCH (08:00)
[2022-06-23] MEDS: THIAMINE HCL 100 MG TAB PO SCH (08:00)
[2022-06-23] MEDS: ASPIRIN 81 MG ECTAB PO SCH (08:00)
[2022-06-23] MEDS: SERTRALINE HCL 50 MG TABLET PO SCH (08:00)
[2022-06-23] MEDS: lisinopril 2.5 MG TAB PO SCH (08:00)
[2022-06-23] MEDS: TRIAMTERENE/HCTZ 37.5/25MG TAB PO SCH (08:00)
[2022-06-23] MEDS: FLUTICASONE/VILANTEROL 100/25MCG 14 PUFFS/INHALER INH SCH (08:01)
[2022-06-23] MEDS: HEPARIN SOD 5,000 UNIT/0.5 ML VIAL SQ SCH ×2 (08:06→20:01)
[2022-06-23] MEDS ORDERED: cefTRIAXone SODIUM 2,000 MG in DEXTROSE 5% 50 ML IV SCH (09:00)
[2022-06-23 09:43] LABS: Basophils # (auto) 0.03 K/uL (0-0.2); Basophils % (auto) 0.3 %; Eosinophils # (auto) 0.09 K/uL (0-0.50); Eosinophils % (auto) 0.8 %; Hematocrit (blood only) 39.2 % (40.1-51.0); Hemoglobin 13.5 g/dl (14.0-18.0); Immature Granulocytes # (auto) 0.03 K/uL (0.00-0.02); Immature Granulocytes % (auto) 0.3 %; Lymphocytes # (auto) 1.27 K/uL (1.2-3.4); Lymphocytes % (auto) 11.7 %; Mean Corpuscular Hemoglobin 31.2 pg (25.0-34.0); Mean Corpuscular Hgb Conc 34.4 g/dL (32.0-36.0); Mean Corpuscular Volume 90.5 fL (80.0-100.0); Mean Platelet Volume 10.6 fL (9.4-12.4); Monocytes # (auto) 0.67 K/uL (0.24-0.82); Monocytes % (auto) 6.2 %; Neutrophils # (auto) 8.78 K/uL (1.4-6.5); Neutrophils % (auto) 80.7 %; Platelet Count 208 K/uL (130-400); RDW Coefficient of Variation 12.8 % (11.5-14.5); RDW Standard Deviation 42.4 fL (36.4-46.3); Red Blood Count 4.33 M/uL (4.63-6.08); White Blood Count 10.87 K/ul (4.8-10.8)
[2022-06-23 10:16] LABS: Albumin Globulin Ratio 1.3 (0.9-2); Albumin Level 3.8 gm/dl (3.4-5.0); BUN Creatinine Ratio 22.2 (10-20); Calcium 9.5 mg/dl (8.5-10.1); Creatinine Clr Calc Pharmacy 76.9 ml/min; Est GFR (African American) 105.1 ml/min; Est GFR (Non-African American) 90.7 ml/min; Magnesium 1.9 mg/dl (1.7-2.4); Potassium 3.6 mmol/L (3.5-5.1); Total Protein 6.8 gm/dl (6.0-8.3)
--- NOTE | 2022-06-23 12:08 | Electrocardiogram Report ---
Test Reason : Blood Pressure : / mmHG Vent. Rate : 071 BPM Atrial Rate : 071 BPM P-R Int : 236 ms QRS Dur : 082 ms QT Int : 410 ms P-R-T Axes : 056 -43 050 degrees QTc Int : 445 ms Sinus rhythm with 1st degree A-V block Left axis deviation Abnormal ECG When compared with ECG of 28-JAN-2022 17:03, Vent. rate has increased BY 23 BPM Confirmed by Ata Aguirre ([id number]) on 06/23/2022 12:08:09 PM Referred By: REFERRED SELF Confirmed By:Ata Aguirre
--- NOTE | 2022-06-23 13:30 | Hospitalist Progress Note ---
Date of Service June 23, 2022 Assessment & Plan (1) Delirium: Plan: Jerry Muñiz is a 71-year-old male with past medical history of stroke, dementia, hypertension, emphysema, cirrhosis, BPH with LUTS who presented due to family reports of altered mental status. - presentation most likely delirium - ddx include dehydration, delirium on dementia, sepsis secondary to aspiration pneumonia, urinary tract infection - chest XR showed R lower lobe opacity, positive hx of aspiration, but clinically and per CRP and procalcitonin make aspiration pneumonia less likely (2) Asymptomatic bacteriuria: Plan: - UA positive for bacteruria - gram negative bacilli on culture - Received a dose of Zosyn and a dose of ceftriaxone 2 g IV - Given lack of specific urinary symptoms, less likely UTI. Mentation most likely secondary to delirium (3) Asthma: Plan: - Chest x-ray showed a R lower lung opacity possibly consistent with pneumonia or atelectasis - Patient reportedly experienced oxygen desaturation from baseline of ~92 and just prior to admission - Condition seems to have improved, will monitor for improvement and will re-a ssess the need for ceftriaxone in the morning to treat a potential aspiration pneumonia - Continue home Breo Ellipta (4) Hypertension: Plan: Continue home triamterene-hydrochlorothiazide (5) Dementia: Plan: Continue home sertraline (6) BPH w urinary obs/LUTS: Plan: Continue home Flomax (7) History of pulmonary aspiration: Plan: - High risk of aspiration per previous video study - likely chronic aspirator - family added history of coughing and oxygen desaturation prior to admission - given clinical presentation, will reassess the need for ceftriaxone in the morning with updated labs and clinical exam Plan DVT prophylaxis: Heparin SQ every 12 Diet: Heart healthy, LR at 80 cc/h x 1 bag Dispo: Admit to MedSurg, PT/OT to evaluate home needs CODE STATUS: Full, per chart review on previous admissions Admission and Anticipated Discharge Date Admission Date: June 23, 2022 Supervising Physician Co-Signing Physician Notes I personally examined the patient and verified all lan points of history and exam, discussed case, and agree with decision making with A Meci MS2 denies dysuria denies sob vitals noted nad heent nc at mmm lungs cta b/l no r/r/w good effort skin no rashes no pallor or icterus abd soft delirium/metabolic encephalopathy superimposed on dementia - after MS2 d/w son, sounds like pt likely returning to baseline. does not appear to have UTI given lack of urinary symptoms, no other septic s/s, or bacterial-consistent elevation of inflammatory markers. further UA had >30 epithelial cells making it dubious in general. suspect aspiration pneumonitis (although not pneumonia) which is resolving, as well as dehydration (as evidenced by prerenal >20:1 BUN:Cr on initial labs) as driving factors for metabolic encephalopathy. follow into tomorrow - likely home. likely no need for further abx. pamela as above Subjective 71 year old male with a past history of dementia, stroke (2009), hypertension, emphysema, cirrhosis, and BPH who was brought to the hospital after family was concerned about increasing confusion. Patient was reportedly experiencing auditory and visual hallucinations and was talking to non-existent people. His baseline mental status has decreased over the past year with a lyme infection and the passing of his . Patient is unable to give a full history of his presentation, but is able to talk about his condition and answer yes/no questions about specific symptoms. In the ED, his UA indicated a urinary tract infection and he was started on Zosyn in the ED, which was transitioned to ceftriaxone on admission. Patient reports no urinary symptoms, including painful urination, retention issues, frequency, or urgency. No reported fever, chills, malaise, headache, cough, SOB, chest pain, vomiting, or diarrhea. Patient reports some mild upper abdominal pain despite reporting a bowel movement in the AM. Review of Systems Review of Systems: Constitutional: No fever, No chills, No fatigue. Respiratory: No shortness of breath, No cough, No wheezing. Cardiovascular: No lightheadedness/presyncope, No chest pain, No palpitations. Gastrointestinal: No nausea, No vomiting, No diarrhea, No constipation, No heartburn. Mild upper quadrant abdominal pain. Musculoskeletal: No joint pain, No muscle pain, No decreased range of motion, No trauma. Skin: No new rashes. Neurologic: No numbness, No tingling, No headache. Physical Exam Physical Exam: General: Alert, No acute distress. HEENT: Normocephalic, moist oral mucosa. Cardiovascular: RRR, no M/R/G Respiratory: Lungs clear bilaterally, Respirations non-labored; Breath sounds equal. No wheezes, rales, rhonchi. Gastrointestinal: Soft, Non-tender, Non-distended, Normal bowel sounds. Musculoskeletal: Normal range of motion. Neurologic: Dysarthria and residual right-sided weakness at baseline ( to 2009 stroke). CN II-XII grossly intact. Aphasic speech. Integumentary: Warm, Dry. Psych: Appropriate mood and affect. Results & Data Results & Data ([facility]) Vital Signs (Past 12 Hours) Vital Signs Temp Pulse Pulse Resp BP BP Pulse Ox 06/23/22 14:51 36.4 C L 100 H 18 130/85 92 06/23/22 07:54 36.4 C L 78 16 151/81 H 91 06/23/22 03:56 06/23/22 03:21 37.3 C 71 18 146/74 H 93 06/23/22 02:20 37.3 C 71 18 146/74 H 93 06/23/22 02:07 80 20 137/86 95 06/23/22 00:54 86 18 166/93 H 93 06/23/22 00:02 87 20 158/81 H 93 06/22/22 23:38 77 20 130/88 94 06/22/22 22:30 95 06/22/22 22:30 139/100 06/22/22 22:00 93 06/22/22 21:47 153/68 H 06/22/22 21:47 93 06/22/22 21:30 90 18 06/22/22 21:02 77 20 06/22/22 21:02 71/57 L 06/22/22 21:00 80 19 06/22/22 20:31 75 25 H 06/22/22 20:31 144/59 H 06/22/22 20:30 75 19 06/22/22 20:00 74 20 06/22/22 20:00 149/69 H 06/22/22 19:47 139/62 06/22/22 19:47 76 22 06/22/22 19:30 71 20 06/22/22 19:00 71 22 91 06/22/22 18:45 71 22 93 06/22/22 18:48 69 22 98 06/22/22 18:47 70 20 93 06/22/22 18:48 36.7 C 73 24 129/79 94 On room air. Laboratory Results Calcium 9.5 mg/dl (8.5-10.1) 06/23/22 09:18 Magnesium 1.9 mg/dl (1.7-2.4) 06/23/22 09:18 CRP 6.38 mg/dl 06/23/22 11:52 Procalcitonin < 0.05 ng/ml 06/23/22 11:52 Cardiac Enzymes 06/23/22 Range/Units 09:18 AST 19 (13-39) U/L CBC 06/22/22 06/23/22 Range/Units 19:00 09:18 WBC 10.21 10.87 H (4.8-10.8) K/ul RBC 3.99 L 4.33 L (4.63-6.08) M/uL Hgb 12.7 L 13.5 L (14.0-18.0) g/dl Hct 36.7 L 39.2 L (40.1-51.0) % Plt Count 202 208 (130-400) K/uL Neut # (Auto) 7.77 H 8.78 H (1.4-6.5) K/uL Lymph # (Auto) 1.67 1.27 (1.2-3.4) K/uL Armstrong # (Auto) 0.58 0.67 (0.24-0.82) K/uL Eos # (Auto) 0.13 0.09 (0-0.50) K/uL Baso # (Auto) 0.02 0.03 (0-0.2) K/uL Comprehensive Metabolic Panel 06/22/22 06/23/22 Range/Units 19:00 09:18 Sodium 137 138 (136-145) mmol/L Potassium 3.7 3.6 (3.5-5.1) mmol/L Chloride 105 105 (98-107) mmol/L Carbon Dioxide 25 27 (21-32) mmol/L BUN 24 H 18 (6-23) mg/dl Creatinine 0.75 0.81 (0.6-1.4) mg/dl Glucose 94 108 H (70-99(Fasting)) mg/dl Calcium 8.6 9.5 (8.5-10.1) mg/dl AST 19 (13-39) U/L ALT 13 (7-52) U/L Alkaline Phosphatase 117 H (34-104) U/L Total Protein 6.8 (6.0-8.3) gm/dl Albumin 3.8 (3.4-5.0) gm/dl Microbiology 06/22/22 20:25 Urine Culture - Preliminary Urine,Clean Catch Gram negative bacilli Urinalysis 06/22/22 20:25 Urine Color Yellow Urine Appearance Clear Urine pH 7.0 Ur Specific [place] 1.017 Urine Protein Negative Urine Glucose (UA) Negative Urine Ketones Negative Urine Blood Negative Urine Nitrite Positive A Urine Bilirubin Negative Intake and Output 06/22/22 06/23/22 06/23/22 22:59 06:59 14:59 Intake Total 120 / 120 70 / 70 Balance 120 / 120 70 / 70 Intake: IV 120 / 120 70 / 70 Piperacillin/Tazobactam 4.5 gm 120 / 120 In 120 ml @ 240 mls/hr IV NOW ONE Rx#:[id number] cefTRIAXone SODIUM 2,000 mg In 70 / 70 Dextrose 5% 50 ml @ 100 mls/hr IV Q24H [facility] Rx#:[id number] Other: # Unmeasured Voids 1 1 # Bowel Movement Diapers 1 Weight 64.2 kg 63.2 kg Weight Measurement Method [facility] Diagnostic Findings Chest X-Ray 06/22/22 18:48 XR chest 1V portable CLINICAL HISTORY: Altered mental status. COMPARISON STUDY: Chest radiograph March 21, 2022. FINDINGS: Postoperative findings within the spine are incidentally noted. Lung volumes are mildly diminished. There is no pneumothorax or pleural effusion. Cardiomediastinal silhouette is stable. There is pulmonary vascular congestion. Note is made of airspace opacity within the medial right lung base. IMPRESSION: 1. Airspace opacity within the medial right lung base. This could reflect pneumonia or atelectasis. Radiographic follow-up to ensure resolution is recommended. 2. Pulmonary vascular congestion. Medications Administered Active Medications Generic Name Dose Route Start Last Admin Trade Name Freq PRN Reason Stop Dose Admin Acetaminophen 650 mg 06/23/22 03:04 Acetaminophen 325 Mg Tab PO 07/23/22 03:03 Q4 PRN Fever Or Pain Aspirin 81 mg 06/23/22 09:00 06/23/22 08:00 Aspirin 81 Mg Ectab PO 07/23/22 08:59 81 mg QAM ALESHA Administration Fluticasone/Vilanterol 1 puffs 06/23/22 09:00 06/23/22 08:01 Fluticasone/Vilanterol 100/25mcg 14 Puffs/Inhaler INH 07/23/22 08:59 1 puffs QAM ALESHA Administration Heparin Sodium (Porcine) 5,000 units 06/23/22 09:00 06/23/22 08:06 Heparin Sod 5,000 Unit/0.5 Ml Vial SQ 07/23/22 08:59 5,000 units Q12 ALESHA Administration Lactated Ringer's 1,000 mls @ 80 mls/hr 06/23/22 03:04 06/23/22 15:56 Lr IV 06/24/22 16:33 80 mls/hr .[id number] ALESHA Administration Lisinopril 2.5 mg 06/23/22 09:00 06/23/22 08:00 Lisinopril 2.5 Mg Tab PO 07/23/22 08:59 2.5 mg DAILY ALESHA Administration Ondansetron HCl 4 mg 06/23/22 03:04 Ondansetron Inj 2 Mg/Ml 2 Ml Vial IV 07/23/22 03:03 Q6H PRN Nausea Polyethylene Glycol 17 gm 06/23/22 03:04 Polyethylene (Miralax) 17 Gm Pack PO 07/23/22 03:03 DAILY PRN Constipation Sertraline HCl 150 mg 06/23/22 09:00 06/23/22 08:00 Sertraline Hcl 50 Mg Tablet PO 07/23/22 08:59 150 mg DAILY ALESHA Administration Tamsulosin HCl 0.4 mg 06/23/22 09:00 06/23/22 08:00 Tamsulosin Hcl 0.4 Mg Cap PO 07/23/22 08:59 0.4 mg QAM ALESHA Administration Thiamine HCl 100 mg 06/23/22 09:00 06/23/22 08:00 Thiamine Hcl 100 Mg Tab PO 07/23/22 08:59 100 mg QAM ALESHA Administration Triamterene/Hydrochlorothiazide 1 tab 06/23/22 09:00 06/23/22 08:00 Triamterene/Hctz 37.5/25mg Tab PO 07/23/22 08:59 1 tab DAILY ALESHA Administration
--- NOTE | 2022-06-23 20:23 | Billing Data ---
Date of Service June 23, 2022 Coding Level of Care Code 42087 Initial Inpt Care Lvl 3
[2022-06-24] MEDS: LACTATED RINGER'S 1,000 ML IV SCH (05:27)
[2022-06-24 08:43] LABS: Basophils # (auto) 0.03 K/uL (0-0.2); Basophils % (auto) 0.4 %; Eosinophils # (auto) 0.14 K/uL (0-0.50); Eosinophils % (auto) 1.9 %; Hematocrit (blood only) 34.1 % (40.1-51.0); Immature Granulocytes # (auto) 0.02 K/uL (0.00-0.02); Immature Granulocytes % (auto) 0.3 %; Lymphocytes # (auto) 1.68 K/uL (1.2-3.4); Lymphocytes % (auto) 23.3 %; Mean Corpuscular Hemoglobin 31.8 pg (25.0-34.0); Mean Corpuscular Hgb Conc 35.2 g/dL (32.0-36.0); Mean Corpuscular Volume 90.5 fL (80.0-100.0); Mean Platelet Volume 10.4 fL (9.4-12.4); Monocytes # (auto) 0.44 K/uL (0.24-0.82); Monocytes % (auto) 6.1 %; Platelet Count 182 K/uL (130-400); RDW Standard Deviation 42.5 fL (36.4-46.3); Red Blood Count 3.77 M/uL (4.63-6.08); White Blood Count 7.21 K/ul (4.8-10.8)
[2022-06-24 09:07] LABS: BUN Creatinine Ratio 24.4 (10-20); Calcium 8.7 mg/dl (8.5-10.1); Creatinine Clr Calc Pharmacy 79.9 ml/min; Est GFR (African American) 106.7 ml/min; Est GFR (Non-African American) 92.1 ml/min; Magnesium 1.9 mg/dl (1.7-2.4); Potassium 3.6 mmol/L (3.5-5.1)
[2022-06-24] MEDS: FLUTICASONE/VILANTEROL 100/25MCG 14 PUFFS/INHALER INH SCH (09:25)
[2022-06-24] MEDS: lisinopril 2.5 MG TAB PO SCH (09:27)
[2022-06-24] MEDS: TAMSULOSIN HCL 0.4 MG CAP PO SCH (09:27)
[2022-06-24] MEDS: HEPARIN SOD 5,000 UNIT/0.5 ML VIAL SQ SCH (09:27)
[2022-06-24] MEDS: ASPIRIN 81 MG ECTAB PO SCH (09:27)
[2022-06-24] MEDS: SERTRALINE HCL 50 MG TABLET PO SCH (09:27)
[2022-06-24] MEDS: TRIAMTERENE/HCTZ 37.5/25MG TAB PO SCH (09:28)
[2022-06-24] MEDS: THIAMINE HCL 100 MG TAB PO SCH (09:28)
--- NOTE | 2022-06-24 13:24 | Discharge Summary ---
Date of Service June 24, 2022 Admission HPI Per Admitting Provider Jerry Garcia is a 71-year-old male with past medical history of stroke, dementia, hypertension, emphysema, cirrhosis, BPH with LUTS who presented due to family reports of altered mental status. The patient was brought into the hospital by EMS. EMS reported that family had complained of the patient being increasingly confused. He does have a history of both stroke and dementia. At the time of my evaluation patient is in bed resting comfortably. While he does respond to his name and converses appropriately, he is unable to give much of a meaningful history. He denies any current chest pain, palpitations, shortness of breath, cough, nausea, vomiting, abdominal pain, flank pain, weakness, numbness. He does deny urinary symptoms. Denies feeling febrile or having chills. In ED patient had normal vital signs, CT head without any acute findings. Lab work with normal white count, anemia with hemoglobin of 12.7, normal electrolytes, though did have a BUN/creatinine ratio of 32, normal ammonia lev el. Urinalysis remarkable for leukocyte esterase and nitrites. Urine cultures and blood cultures were drawn. He received Zosyn 4.5 g IV x1. Admission Exam Per Admitting Provider GENERAL: A&Ox1. NAD. HEENT: PERRL, EOMI. Moist mucous membranes. NECK: No JVD. No lymphadenopathy. CHEST/LUNGS: CTAB A/P. No crackles, wheezes, rales, rhonchi. HEART: RRR. No m/g/r. No carotid bruits. ABDOMEN: NT/ND, soft. BS+ x4 EXTREMITIES: No cyanosis, no clubbing, no edema SKIN: Warm and dry. No rashes or lesions. PSYCHIATRIC: Euthymic affect, no SI, no pressured speech, no hallucinations NEUROLOGIC: Some pre-existing right arm weakness, dysarthria. Principal Diagnosis Altered mental status. Discharge Exam General: Alert, No acute distress. HEENT: Normocephalic, moist oral mucosa. Cardiovascular: RRR, no M/R/G Respiratory: Lungs clear bilaterally, Respirations non-labored; Breath sounds equal. No wheezes, rales, rhonchi. Gastrointestinal: Soft, Non-tender, Non-distended, Normal bowel sounds. Musculoskeletal: Normal range of motion. Neurologic: Dysarthria and residual right-sided weakness at baseline (2nd to 2009 stroke). CN II-XII grossly intact. Aphasic speech. Integumentary: Warm, Dry. Psych: Appropriate mood and affect. Discharge Data Allergies Allergy/AdvReac Type Severity Reaction Status Date / Time No Known Allergies Allergy Verified 06/23/22 01:46 Ordered Studies Chest X-Ray 06/22/22 18:48 XR chest 1V portable CLINICAL HISTORY: Altered mental status. COMPARISON STUDY: Chest radiograph March 21, 2022. FINDINGS: Postoperative findings within the spine are incidentally noted. Lung volumes are mildly diminished. There is no pneumothorax or pleural effusion. Cardiomediastinal silhouette is stable. There is pulmonary vascular congestion. Note is made of airspace opacity within the medial right lung base. IMPRESSION: 1. Airspace opacity within the medial right lung base. This could reflect pneumonia or atelectasis. Radiographic follow-up to ensure resolution is recommended. 2. Pulmonary vascular congestion. ACT 112: Negative or not required by law. Electronically signed by: Roosevelt Trammell M.D. 06/22/2022 7:[address] 06/22/22 18:48 CT OF THE HEAD WITHOUT CONTRAST CLINICAL HISTORY: Altered mental status. COMPARISON STUDY: Head CT January 28, 2022. CT DOSE: 537.48 mGy.cm TECHNIQUE: Helical axial images of the head were obtained without IV contrast. Automated exposure control was utilized for the study. A dose lowering technique was utilized adhering to the principles of ALARA. FINDINGS: No acute intracranial hemorrhage, midline shift or mass effect is present. The ventricular system is stable. White matter hypodensities are unchanged and suggest small vessel disease. Old lacunar infarcts within the bilateral basal ganglia and left thalamus are again noted. The basal cisterns are patent. No extra-axial collections are present. There are no findings to suggest acute dural sinus thrombosis or acute territorial infarct. No significant calvarial abnormalities are present. Visualized portions of the sinuses and mastoid air cells are clear. IMPRESSION: No acute intracranial findings. No change in appearance of the brain. ACT 112: Negative or not required by law. Electronically signed by: Roosevelt Trammell M.D. 06/22/2022 7:40 PM Hospital Course (1) Delirium: Jerry Muñiz is a 71-year-old male with past medical history of stroke, dementia, hypertension, emphysema, cirrhosis, BPH with LUTS who presented due to family reports of altered mental status. - presentation most likely delirium in the setting of dehydration. - ddx included dehydration, delirium on dementia, sepsis secondary to aspiration pneumonia, urinary tract infection - chest XR showed R lower lobe opacity, positive hx of aspiration, but clinically and per CRP and procalcitonin make aspiration pneumonia less likely - mentation stabilized and improved to baseline during hospital stay. (2) Asymptomatic bacteriuria: - UA positive for bacteruria - gram negative bacilli on culture - Received a dose of Zosyn and a dose of ceftriaxone 2 g IV - Given lack of specific urinary symptoms, less likely UTI. Mentation most likely secondary to delirium. - Discontinued abx prior to discharge due to lack of symptoms. (3) Asthma: - Chest x-ray showed a R lower lung opacity possibly consistent with pneumonia or atelectasis. - Patient reportedly experienced oxygen desaturation from baseline of ~92 and just prior to admission. - Condition improved, discontinued ceftriaxone prior to discharge. - Continue home Breo Ellipta. (4) History of pulmonary aspiration: - High risk of aspiration per previous video study - likely chronic aspirator - family added history of coughing and oxygen desaturation prior to admission - Condition improved, discontinued ceftriaxone prior to discharge - Recommended to family the need for vigilance when eating to avoid aspiration. (5) Hypertension: Continue home triamterene-hydrochlorothiazide (6) Dementia: Continue home sertraline (7) BPH w urinary obs/LUTS: Continue home Flomax (8) Depression: - Expressed that he was depressed while hospitalized. - Continue home Sertraline - Suggest that PCP should reassess depression regimen. Plan Full code for the duration of admission. Total Time Total Time Spent Total Time Spent (In Minutes): Per attending note. Discharge Plan Discharge Items Patient Disposition: Home - Self-Care Reason For Visit: AMS Discharge Diagnosis: Dehydration - Altered Mental Status Activity: Resume your previous activity Non-emergency contact: Primary Care Provider Call non-emergency contact if: you have any medication questions and your symptoms worsen Follow-up/Referrals: Carlos De Souza DO [Primary Care Provider] - Diet: Regular Addtl Attending Provider Instructions: You were admitted to the hospital for altered mental status. There are a few different things that could have caused the altered mental status. We believe that dehydration was probably the main cause of the change in mental status. You had some bacteria in her urine, but because you do not have any urinary symptoms this is not indicative of a urinary tract infection. Many people will chronically have bacteria in there urine and we would only treat if antibiotics if your having symptoms like increase urinary frequency, abdominal pain, blood in the urine, or pain with urination. Your chest x-ray showed a spot that could be indicative of an aspiration event. Looking at your vital signs and lab work, you do not have a pneumonia now. Going forward take the time to eat slowly. A discharge summary will be sent to your primary care physician to ensure continuity of care. Please bring this discharge summary with you to your next office appointment so that your provider can review it at that time. Follow-up appointments: We have requested a follow-up appointment with your primary care physician within one week of discharge. Please call their office if you do not hear from them. Pending Studies at Discharge: No Stand-Alone Forms: My [facility] Medications and DC Order Prescriptions: Continued sertraline 150 mg capsule 150 mg PO DAILY Qty: 30 0RF tamsulosin [Flomax] 0.4 mg capsule 0.4 mg PO QAM fluticasone furoate-vilanterol [Breo Ellipta] 100-25 mcg/dose blister with device 1 puff inhalation QAM aspirin 81 mg capsule 81 mg PO QAM acetaminophen 325 mg tablet 650 mg PO Q4 PRN (Reason: Fever Or Pain) thiamine HCl (vitamin B1) 100 mg Tablet 100 mg PO QAM triamterene-hydrochlorothiazid 37.5-25 mg tablet 1 tab PO DAILY Rx Instructions: script filled per dr. fontaine tramadol 50 mg tablet 50 mg PO Q6 PRN (Reason: Pain) lisinopril 2.5 mg tablet 2.5 mg PO DAILY Rx Instructions: per dr. fontaine script filled Discharge Orders: Discharge Order (Routine); Ordered 06/24/22 Ordered By: Sara Xiong/Other Patient Handouts: Delirium and Dementia, Dysphagia Aspiration Tx Admission Data Admit Date/Time: 06/23/22 00:52 Attending Provider: Iker Erazo Admit Provider: Rubin Nicholas Primary Care Provider: Carlos De Souza Other Providers: Manolo Metz Other Interventions: Discharge Summary Assessment (RN) Last Done: 06/24/22 17:27 Supervising Physician Co-Signing Physician Notes I personally examined the patient and verified all lan points of history and exam, discussed case, and agree with decision making with A Meci MS2 wants to go home. no dysuria. no sob. wants to go home vitals noted nad heent nc at mmm lungs cta b/l no r/r/w good effort skin no rashes no pallor or icterus abd soft delirium/metabolic encephalopathy superimposed on dementia - likely aspiration pneumonitis and dehydration driven. improved. stable for home. otherwise as above
--- NOTE | 2022-06-24 18:19 | Billing Data ---
Date of Service June 24, 2022 Coding Level of Care Code D/C DAY MANAGEMENT <30 MINS
== END 2022-06-24 18:08 | disposition home or self-care (01) | DRG 641 ==
LOC: ED 18:37 → 3W 06-23 00:52 → SUATTDRO 06-23 00:52 → INTOOBSV 06-23 00:52 → 3W 06-23 02:16